=== PATIENT | female | born 1975 | race Caucasian/White ===

== ENCOUNTER → 2017-05-15 | Day surgery (SDC) | payer OTHER ==
[~2017-05-15] MED LIST: CLON0.5T3 PO; ESTR1PAT10 TP; FLUO10CA13 PO; HYDROmorphone 2 MG/ML VIAL IV PRN; IV RINGERS,LACTATED 1000ML 1,000 ML IV SCH; LEVO175T2 PO; LIDOCAINE 1% 1 ML SYRINGE. ID PRN; LIDOCAINE 2% PF Vial for OR 5 ML VIAL. ONE; LITH300T3 PO; MORPHINE SULFATE 2 MG/ML DISP.SYRIN. IV PRN; ONDANSETRON PF 4 MG/2 ML VIAL. IV PRN; PROCHLORPERAZINE 10 MG/2 ML VIAL. IV PRN; PROP10TA PO; PROPOFOL 20 ML IV ONE; PROPOFOL 40 ML IV ONE; QUET200T4 PO; fentaNYL PF VIAL 100 MCG/2 ML VIAL IV PRN
[2017-05-15 07:55] VITALS: BP 111/70
--- NOTE | 2017-05-16 11:32 | PATHOLOGY ---
PATHOLOGY REPORT * * * * * * * * FINAL DIAGNOSIS: Colonic mucosa, random colon biopsies: - No significant pathologic abnormalities. (JPM:florentin; 05/16/2017) COMMENT: Sections of the random colon biopsy reveal multiple segments of colonic mucosa. There is no evidence of a chronic destructive colitis, lymphocytic colitis, or collagenous colitis. (JPM:florentin; 05/16/2017) REPORT ELECTRONICALLY SIGNED BY: Julian Medina M.D. DATE/TIME: 05/16/2017 11:31 * * * * * * * * GROSS PATHOLOGY: Received in formalin labeled "Alyce Hewitt, random colon biopsies," are multiple segments of torres soft tissue measuring from 0.1 up to 0.5 cm in maximum dimension. The specimen is submitted entirely in cassette A1. (JPM; 05/15/17) INITIAL CPT CODE(S): A; 12000 Professional services [place] [facility] [place] [address] Technical services performed by [facility] at [address] [place] [address]. SPECIMEN(S) RECEIVED: A.Random colon biopsy CLINICAL HISTORY: Diarrhea, RUQ pain PATIENT: ALYCE HEWITT /AGE: 5 1975 (Age: 42) PATIENT #: [id number] ALT CASE #: SPECIMEN COLLECTION DATE: 05/15/2017 SPECIMEN RECEIVED DATE: 05/15/2017 [facility] - [address] [place] [address] - PHONE: [phone] * * * END OF REPORT * * *
== END | disposition home or self-care (01) ==
LOC: ENDOS 05:46
PROVIDERS: ATTEND Internal Medicine Gastroenterology
DX: K29.50 Unspecified chronic gastritis without bleeding (principal); E78.00 Pure hypercholesterolemia, unspecified; I10 Essential (primary) hypertension; Z87.01 Personal history of pneumonia (recurrent); E66.9 Obesity, unspecified; K21.9 Gastro-esophageal reflux disease without esophagitis; M19.90 Unspecified osteoarthritis, unspecified site; E03.9 Hypothyroidism, unspecified; F41.9 Anxiety disorder, unspecified; F32.9 Major depressive disorder, single episode, unspecified; F17.200 Nicotine dependence, unspecified, uncomplicated; D64.9 Anemia, unspecified; Z87.39 Personal history of other diseases of the musculoskeletal system and connective tissue; Z68.41 Body mass index [BMI] 40.0-44.9, adult; Z86.69 Personal history of other diseases of the nervous system and sense organs
CPT/HCPCS: 43235; 88305; J2001; J2704

== ENCOUNTER 2019-01-20 22:57 | Inpatient (IN) | payer SELFPAY ==
[~2019-01-20] VITALS: Ht 172.7 cm; Wt 117.3 kg
[~2019-01-20 22:57] MED LIST changes: +CLON0.5T11 PO; -CLON0.5T3 PO; -HYDROmorphone 2 MG/ML VIAL IV PRN; -IV RINGERS,LACTATED 1000ML 1,000 ML IV SCH; -LIDOCAINE 1% 1 ML SYRINGE. ID PRN; -LIDOCAINE 2% PF Vial for OR 5 ML VIAL. ONE; -MORPHINE SULFATE 2 MG/ML DISP.SYRIN. IV PRN; -ONDANSETRON PF 4 MG/2 ML VIAL. IV PRN; -PROCHLORPERAZINE 10 MG/2 ML VIAL. IV PRN; -PROPOFOL 20 ML IV ONE; -PROPOFOL 40 ML IV ONE; -fentaNYL PF VIAL 100 MCG/2 ML VIAL IV PRN
[2019-01-21] VITALS (17 sets, daily range): BP systolic 85–158; BP diastolic 55–97
[2019-01-21] MEDS ORDERED: ONDANSETRON PF 4 MG/2 ML VIAL. IV PRN ×4 (00:45→17:45)
--- NOTE | 2019-01-21 01:07 | NUR ---
The patient, BESS HEWITT, 43 y/o, F admitted by DERRICK GONZALEZ MD, was given written information regarding hospital policies, unit procedures and contact persons. Valuables were checked and left in patients room with patient.
--- NOTE | 2019-01-21 01:08 | NUR ---
PATIENT ADMITTED, PATIENT ASKED ABOUT HOME MEDICATIONS TAKING DAILY. PATIENT DOES NOT KNOW DAILY MEDICATIONS, PATIENT STATES SHE WILL GET A LIST FROM THE PHARMACY LATER TODAY WHEN THEY OPEN. WILL CONTINUE TO MONITOR THE PATIENT.
[2019-01-21] MEDS: IV NORMAL SALINE 1000ML BAG 1,000 ML IV SCH ×2 (01:23→10:45)
--- NOTE | 2019-01-21 04:43 | PDOC2 ---
CONSULT Date of Consult Date of Consult DATE: 01/21/19 TIME: 04:37 Reason for Consult Reason for Consult: acute appendicitis Referring Physician Referring Physician: AUBREY Identification/Chief Complaint Chief Complaint RLQ pain Source Source: Chart review, Patient History of Present Illness Reason for Visit: Alyce is a 43 yo obese female with a three day hx of RLQ pain. Denies any similar episodes of this severity or duration Past Medical History Cardiovascular: HTN Pulmonary: No pertinent hx GI: Irritable bowel disease Psych: Anxiety, Bipolar, Depression, Schizophrenia Past Surgical History Past Surgical History: Hysterectomy Family History Family History: Family History Unknown Social History 1 pack per day ALCOHOL: rare Drugs: Marijuana Current Medications Current Medications Current Medications Sodium Chloride 1,000 ml @ 100 mls/hr Q10H IV Last administered on 01/21/19at 01:23; Start 01/21/19 at 00:45 Fentanyl Citrate (Fentanyl 2ml Vial) 50 mcg PRN Q2HR PRN IV PAIN; Start at 00:45 Ondansetron HCl (Zofran) 4 mg PRN Q6HRS PRN IV NAUSEA/VOMITING; Start 01/21/19 at 00:45 Cefazolin Sodium 3 gm/Dextrose 100 ml @ 200 mls/hr 1X PREOP PRN IV protocol; Start 01/21/19 at 06:00; Stop 01/22/19 at 15:00 Metronidazole 100 ml @ 100 mls/hr 1X PREOP PRN IV protocol; Start 01/21/19 at 06:00; Stop 01/22/19 at 18:00 Active Scripts Active Reported Synthroid (Levothyroxine Sodium) 175 Mcg Tablet 1 Tab PO DAILY Vivelle-Dot (Estradiol) 1 Each Patch.tdsw 1 Patch TP TWICE WEEKLY Clonazepam 0.5 Mg Tablet 1 Tab PO DAILY Propranolol Hcl 10 Mg Tablet 1 Tab PO BID Prozac (Fluoxetine Hcl) 10 Mg Capsule 10 Mg PO DAILY [place] Carbonate 300 Mg Tablet 300 Mg PO HS Seroquel (Quetiapine Fumarate) 200 Mg Tablet 3 Tab PO QHS Allergies Allergies: Coded Allergies: No Known Medication Allergies (Verified Allergy, Unknown, 01/21/19) ROS Gastrointestinal: Yes Abdominal Pain, Yes Constipation Physical Exam General: Alert, No acute distress HEENT: Atraumatic Lungs: Normal air movement Heart: Regular rate Abdomen: Soft, Other (TTP RLQ ) Skin: Other (warm, dry) Psych/Mental Status: Mental status NL Vitals VITALS Vital Signs Date Time Temp Pulse Resp B/P (MAP) Pulse Ox O2 Delivery O2 Flow Rate FiO2 01/21/19 00:52 Room Air Images Images CT done at [facility] is reviewed Assessment/Plan Assessment/Plan acute appendicitis obesity bipolar disorder l/s appendectomy today Thanks for consult SONALI KILGORE MD Jan 21, 2019 04:43
[2019-01-21] MEDS ORDERED: HYDROmorphone 2 MG/ML VIAL IV PRN ×3 (05:15→17:45)
[2019-01-21] MEDS ORDERED: IV RINGERS,LACTATED 1000ML 1,000 ML IV SCH ×2 (05:15→17:37)
[2019-01-21] MEDS ORDERED: MORPHINE SULFATE 2 MG/ML VIAL. IV PRN ×2 (05:15→17:45)
[2019-01-21] MEDS ORDERED: PROCHLORPERAZINE 10 MG/2 ML VIAL. IV PRN ×2 (05:15→17:45)
[2019-01-21] MEDS ORDERED: fentaNYL PF VIAL 100 MCG/2 ML VIAL IV PRN ×4 (05:15→17:45)
[2019-01-21] MEDS ORDERED: LIDOCAINE 1% PF 2 ML VIAL. ID PRN (05:15)
[2019-01-21] MEDS ORDERED: fentaNYL PF VIAL 100 MCG/2 ML VIAL ONE ×3 (05:26→17:41)
[2019-01-21] MEDS ORDERED: ROCURONIUM 50 MG/5 ML VIAL. ONE ×2 (05:26→17:41)
[2019-01-21] MEDS ORDERED: ONDANSETRON PF 4 MG/2 ML VIAL. ONE ×2 (05:27→17:41)
[2019-01-21] MEDS ORDERED: LIDOCAINE 2% PF 5 ML VIAL. ONE ×2 (05:27→17:41)
[2019-01-21] MEDS ORDERED: PROPOFOL 20 ML IV ONE ×2 (05:27→17:41)
[2019-01-21] MEDS ORDERED: DEXAMETHASONE SOD PHOS 20 MG/5 ML VIAL. ONE ×2 (05:27→17:41)
[2019-01-21] MEDS ORDERED: DESFLURANE 61 TO 120 MINUTES IH ONE ×2 (05:28→07:52)
[2019-01-21] MEDS ORDERED: BUPIVAC MPF-EPI 0.5%-1:200000 30 ML VIAL. ONE ×2 (05:30→16:44)
[2019-01-21] MEDS ORDERED: ceFAZolin SODIUM 3 GM in IV DEXTROSE 5% 100ML 100 ML IV PRN (06:00)
[2019-01-21] MEDS ORDERED: diphenhydrAMINE 50 MG/ML VIAL ONE (07:18)
[2019-01-21] MEDS ORDERED: KETOROLAC 30 MG/ML INJ FOR OR. INJ ONE (07:18)
[2019-01-21] MEDS ORDERED: GLYCOPYRROLATE 1 MG/5 ML VIAL. ONE ×2 (07:32→20:29)
[2019-01-21] MEDS ORDERED: NEOSTIGMINE METHYLSULFATE 5 MG/5 ML SYRINGE. ONE ×2 (07:32→20:31)
[2019-01-21] MEDS: fentaNYL PF VIAL 100 MCG/2 ML VIAL IV PRN ×3 (08:42→13:56)
--- NOTE | 2019-01-21 08:56 | PDOC ---
BRIEF OPERATIVE NOTE Date: Jan 21, 2019 Pre-Op Diagnosis acute appendicitis Post-Op Diagnosis same Procedure Performed l/s appendectomy Surgeon Leo Operating Manager Janelle LUCAS Anesthesia Type: General Blood Loss 25cc IV Fluid 1100cc Urine Output 50cc Specimens Obtained appendix Findings acute appendicitis Complications none Operative Note Wk # [id number] SONALI KILGORE MD Jan 21, 2019 08:56
[2019-01-21] MEDS ORDERED: clonazePAM 0.5 MG TABLET PO SCH ×2 (09:00→11:30)
[2019-01-21] MEDS ORDERED: FLUoxetine HCL 10 MG CAPSULE PO SCH ×2 (09:00→11:30)
[2019-01-21] MEDS ORDERED: PROPRANOLOL 10 MG TABLET. PO SCH (09:00)
[2019-01-21] MEDS ORDERED: ENOXAPARIN 40 MG/0.4 ML SYRINGE. SQ SCH (09:00)
[2019-01-21] MEDS ORDERED: diphenhydrAMINE HCL 25 MG CAPSULE PO PRN (09:00)
[2019-01-21] MEDS ORDERED: DEXTROSE 50% 25 GM / 50ML DISP.SYRIN. IV PRN (09:00)
[2019-01-21] MEDS ORDERED: oxyCODONE/APAP 5/325 1 TAB TABLET PO PRN (09:00)
[2019-01-21] MEDS ORDERED: ESTRADIOL TP SCH (09:00)
[2019-01-21] MEDS ORDERED: 0.9 % SODIUM CHLORIDE 10 ML DISP.SYRIN. IV PRN (09:00)
[2019-01-21] MEDS: LEVOTHYROXINE 175 MCG TABLET PO SCH (09:30)
[2019-01-21] MEDS: POTASSIUM CL 20MEQ-0.45% NACL 1,000 ML IV SCH ×2 (09:31→22:25)
--- NOTE | 2019-01-21 09:31 | OP ---
DATE OF SURGERY: 01/21/2019 PREOPERATIVE DIAGNOSIS: Acute appendicitis. POSTOPERATIVE DIAGNOSIS: Acute appendicitis. PROCEDURE: Laparoscopic appendectomy. SURGEON: Brady Kilgore MD ANESTHESIA: General endotracheal. REFINERY TECHNICIAN: SHAYY Hatch. BLOOD LOSS: 25 mL. IV: 1100 mL. URINE OUTPUT: 50 mL. DESCRIPTION OF PROCEDURE: The patient brought to the operating suite, given a general endotracheal anesthetic. Saeed catheter placed to dependent drainage and the abdomen prepped and draped in usual sterile fashion. A supraumbilical incision was made and a 5 mm Visiport used to safely gain access into the abdominal cavity, taking care to avoid injury to abdominal contents. Pneumoperitoneum established. Camera inserted and under direct vision, the suprapubic and left lower quadrant ports were placed. The supraumbilical port was converted to 12 mm for instrumentation. Table rolled to the left. The inflamed appendix was gently freed from the lateral abdominal wall with blunt dissection and LigaSure, being careful to avoid injury to the adjacent bowel. This allowed identification of the viable base of the appendix. A rent created between the base of the mesoappendix and the Endo-JULISA stapler was used to amputate the base of the appendix. Endo-JULISA vascular load used to control the mesoappendix and the appendix placed in an EndoCatch bag. Intra-abdominal pressure decreased to 6 cm of water. No bleeding from the appendiceal stump or mesoappendix was seen. Table returned to level. Appendix delivered through the supraumbilical port site. This site closed with interrupted 0 Vicryl suture. At 8 cm pressure intraabdominally, no bleeding from the closure nor from the left lower quadrant port site after its removal. Abdomen decompressed, camera slowly removed, no bleeding seen. Skin incisions closed with subcuticular 4-0 Monocryl. Sterile dressings applied. Saeed catheter removed. The patient awakened from her anesthetic and taken to the recovery room in satisfactory condition. BRADY KILGORE MD DR: KYRIE/sharon JOB#: [id number] / [id number]
[2019-01-21] MEDS ORDERED: LAMO150T3 PO (10:11)
[2019-01-21] MEDS ORDERED: CARI6CAP PO (10:11)
[2019-01-21] MEDS ORDERED: TOPI100T8 PO (10:11)
[2019-01-21] MEDS ORDERED: ESTR0.5T PO (10:11)
[2019-01-21] MEDS: DOCUSATE SODIUM 100 MG CAPSULE. PO SCH ×2 (10:19→21:00)
[2019-01-21] MEDS: oxyCODONE/APAP 5/325 1 TAB TABLET PO PRN (10:20)
--- NOTE | 2019-01-21 10:35 | PDOC1 ---
History and Physical Date of Admission Date of Admission DATE: 01/21/19 TIME: 10:32 Identification/Chief Complaint Chief Complaint abd pain Source Source: Caregiver, Chart review, Patient History of Present Illness History of Present Illness Alyce is a 43 yo obese female with a three day hx of RLQ pain. Denies any similar episodes of this severity or duration. Appendicitis on imaging underwent lap appendectomy today. No indwelling drain. Some postop soreness. Otherwise she is doing okay and feels fine Past Medical History Cardiovascular: HTN Pulmonary: No pertinent hx GI: Irritable bowel disease Psych: Anxiety, Bipolar, Depression, Schizophrenia Endocrine: Hypothyroidism Past Surgical History Past Surgical History: Appendectomy, Hysterectomy Family History Family History: Family History Unknown Social History Smoke: No ALCOHOL: rare Drugs: Marijuana Current Medications Current Medications Current Medications Sodium Chloride 1,000 ml @ 100 mls/hr Q10H IV Last administered on 01/21/19at 01:23; Start 01/21/19 at 00:45 Fentanyl Citrate (Fentanyl 2ml Vial) 50 mcg PRN Q2HR PRN IV PAIN Last administered on 01/21/19at 08:54; Start 01/21/19 at 00:45 Ondansetron HCl (Zofran) 4 mg PRN Q6HRS PRN IV NAUSEA/VOMITING; Start 01/21/19 at 00:45; Stop 01/21/19 at 08:54; Status DC Cefazolin Sodium 3 gm/Dextrose 100 ml @ 200 mls/hr 1X PREOP PRN IV protocol; Start 01/21/19 at 06:00; Stop 01/22/19 at 15:00 Metronidazole 100 ml @ 100 mls/hr 1X PREOP PRN IV protocol Last administered on 01/21/19at 06:25; Start 01/21/19 at 06:00; Stop 01/22/19 at 18:00 Ondansetron HCl (Zofran) 4 mg PRN Q6HRS PRN IV NAUSEA/VOMITING; Start 01/21/19 at 05:15; Stop 01/22/19 at 05:14 Fentanyl Citrate (Fentanyl 2ml Vial) 25 mcg PRN Q5MIN PRN IV MILD PAIN; Start 01/21/19 at 05:15; Stop 01/22/19 at 05:14 Fentanyl Citrate (Fentanyl 2ml Vial) 50 mcg PRN Q5MIN PRN IV MODERATE TO SEVERE PAIN; Start 01/21/19 at 05:15; Stop 01/22/19 at 05:14 Morphine Sulfate (Morphine Sulfate) 1 mg PRN Q10MIN PRN IV SEVERE PAIN; Start 01/21/19 at 05:15; Stop 01/22/19 at 05:14 Ringer's Solution 1,000 ml @ 30 mls/hr Q24H IV ; Start 01/21/19 at 05:15; Stop 01/21/19 at 09:41; Status DC Lidocaine HCl (Xylocaine-Mpf 1% 2ml Vial) 2 ml PRN 1X PRN ID PRIOR TO IV START ; Start 01/21/19 at 05:15; Stop 01/22/19 at 05:14 Hydromorphone HCl (Dilaudid) 0.5 mg PRN Q10MIN PRN IV SEV PAIN, Second choice; Start 01/21/19 at 05:15; Stop 01/22/19 at 05:14 Prochlorperazine Edisylate (Compazine) 5 mg PACU PRN PRN IV NAUSEA, MRX1; Start 01/21/19 at 05:15; Stop 01/22/19 at 05:14 Fentanyl Citrate (Fentanyl 2ml Vial) 100 mcg STK-MED ONCE .ROUTE ; Start at 05:26; Stop 01/21/19 at 05:27; Status DC Rocuronium [place] (Zemuron) 50 mg STK-MED ONCE .ROUTE ; Start 01/21/19 at 05:26 ; Stop 01/21/19 at 05:27; Status DC Propofol 20 ml @ As Directed STK-MED ONCE IV ; Start 01/21/19 at 05:27; Stop 08/01 at 05:28; Status DC Lidocaine HCl (Lidocaine Pf 2% Vial) 5 ml STK-MED ONCE .ROUTE ; Start 01/21/19 at 05:27; Stop 01/21/19 at 05:28; Status DC Dexamethasone Sodium Phosphate (Decadron) 20 mg STK-MED ONCE .ROUTE ; Start 08/01 at 05:27; Stop 01/21/19 at 05:28; Status DC Ondansetron HCl (Zofran) 4 mg STK-MED ONCE .ROUTE ; Start 01/21/19 at 05:27; Stop 01/21/19 at 05:28; Status DC Desflurane (Suprane) 60 ml STK-MED ONCE IH ; Start 01/21/19 at 05:28; Stop 01/21 at 05:29; Status DC Bupivacaine HCl/ Epinephrine Bitart (Sensorcain-Mpf Epi 0.5%-1:[id number]) 30 ml STK -MED ONCE .ROUTE Last administered on 01/21/19at 07:29; Start 01/21/19 at 05:30 ; Stop 01/21/19 at 06:31; Status DC Diphenhydramine HCl (Benadryl) 50 mg STK-MED ONCE .ROUTE ; Start 01/21/19 at 07: 18; Stop 01/21/19 at 07:19; Status DC Ketorolac Tromethamine (Toradol For Or Only) 30 mg STK-MED ONCE INJ ; Start 08/01 at 07:18; Stop 01/21/19 at 07:19; Status DC Glycopyrrolate (Robinul) 1 mg STK-MED ONCE .ROUTE ; Start 01/21/19 at 07:32; Stop 01/21/19 at 07:33; Status DC Neostigmine Methylsulfate (Neostigmine Methylsulfate) 5 mg STK-MED ONCE .ROUTE ; Start 01/21/19 at 07:32; Stop 01/21/19 at 07:33; Status DC Desflurane (Suprane) 60 ml STK-MED ONCE IH ; Start 01/21/19 at 07:52; Stop 01/21 at 07:53; Status DC Fentanyl Citrate (Fentanyl 2ml Vial) 100 mcg STK-MED ONCE .ROUTE ; Start at 08:38; Stop 01/21/19 at 08:39; Status DC Diphenhydramine HCl (Benadryl) 25 mg PRN Q6HRS PRN PO ITCHING; Start 01/21/19 at 09:00 Enoxaparin Sodium (Lovenox 40mg Syringe) 40 mg Q24H SQ ; Start 01/21/19 at 09:00 ; Stop 01/21/19 at 09:00; Status DC Sodium Chloride (Normal Saline Flush) 3 ml QSHIFT PRN IV AFTER MEDS AND BLOOD DRAWS; Start 01/21/19 at 09:00 Potassium Chloride/Sodium Chloride 1,000 ml @ 100 mls/hr Q10H IV Last administered on 01/21/19at 09:31; Start 01/21/19 at 09:00 Dextrose (Dextrose 50%-Water Syringe) 12.5 gm PRN Q15MIN PRN IV SEE COMMENTS; Start 01/21/19 at 09:00 Oxycodone/ Acetaminophen (Percocet 5/325) 1 tab PRN Q4HRS PRN PO MILD PAIN, 1ST CHOICE; Start 01/21/19 at 09:00 Oxycodone/ Acetaminophen (Percocet 5/325) 2 tab PRN Q4HRS PRN PO MODERATE PAIN , SEVERE PAIN Last administered on 01/21/19at 10:20; Start 01/21/19 at 09:00 Hydromorphone HCl (Dilaudid) 1 mg PRN Q3HRS PRN IV PAIN; Start 01/21/19 at 09: 00 Docusate Sodium (Colace) 100 mg BID PO Last administered on 01/21/19at 10:19; Start 01/21/19 at 09:00 Ondansetron HCl (Zofran) 4 mg PRN Q6HRS PRN IV NAUESA, 1ST CHOICE; Start at 09:00 Clonazepam (KlonoPIN) 0.5 mg DAILY PO ; Start 01/21/19 at 09:00 Fluoxetine HCl (PROzac) 10 mg DAILY PO ; Start 01/21/19 at 09:00 Levothyroxine Sodium (Synthroid) 175 mcg DAILY06 PO Last administered on at 09:30; Start 01/21/19 at 09:00 Non-Formulary Medication (Estradiol (Vivelle-Dot)) 1 patch TWICE WEEKLY TP ; Start 01/21/19 at 09:00; Status [place] Carbonate 300 mg QHS PO ; Start 01/21/19 at 21:00 Propranolol HCl (Inderal) 10 mg BID PO ; Start 01/21/19 at 09:00 Quetiapine Fumarate (SEROquel) 600 mg QHS PO ; Start 01/21/19 at 21:00 Enoxaparin Sodium (Lovenox 40mg Syringe) 40 mg Q24H SQ ; Start 01/21/19 at 21:00 Active Scripts Active Reported Topiramate 100 Mg Tablet 200 Mg PO HS Lamictal (Lamotrigine) 150 Mg Tablet 150 Mg PO HS Vraylar (Cariprazine Hydrochloride) 6 Mg Capsule 6 Mg PO DAILY Estradiol 0.5 Mg Tablet 0.5 Mg PO DAILY Synthroid (Levothyroxine Sodium) 175 Mcg Tablet 1 Tab PO DAILY Prozac (Fluoxetine Hcl) 10 Mg Capsule 20 Mg PO DAILY Allergies Allergies: Coded Allergies: No Known Medication Allergies (Verified Allergy, Unknown, 01/21/19) ROS Review of System Some postop pain otherwise the rest of ROS 14 point negative Physical Exam General: Alert, Oriented X3, Cooperative, No acute distress HEENT: Atraumatic, PERRLA, EOMI Lungs: Clear to auscultation, Normal air movement Heart: S1S2, RRR, no thrills, no rubs, no gallops, no murmurs Cardiovascular: S1 Breasts: Normal, Rt breast nml w/o mass, Lt breast nml w/o mass, Nipples normal Abdomen: Soft, Other (3 laparoscopic dressings, dry, positive bowel sounds, minor tenderness around post op site) Rectal Exam: not examined PELVIC: Nml ext genitalia Extremities: No clubbing Skin: No rashes, No breakdown, No significant lesion Neuro: Normal gait, Normal speech, Strength at 5/5 X4 ext, Normal tone, Sensation intact, Cranial nerves 3-12 NL, Reflexes 2+ Psych/Mental Status: Mental status NL Vitals Vitals Vital Signs Date Time Temp Pulse Resp B/P (MAP) Pulse Ox O2 Delivery O2 Flow Rate FiO2 01/21/19 10:22 96 Nasal Cannula 2.0 01/21/19 09:00 98.6 86 15 114/75 98.6 VTE Prophylaxis Ordered VTE Prophylaxis Devices: Yes VTE Pharmacological Prophylaxi: Yes Assessment/Plan Assessment/Plan status post lap appendectomy-01/21/19 Obesity, BMI 39.7 Depression/anxiety NOS-on meds Plan: postop care, diet Might be able to go home tomorrow Discussed with family at bedside DERRICK GONZALEZ MD Jan 21, 2019 10:35
[2019-01-21 10:37] LABS: BASO % 1 % (0-3); EOS % 0 % (0-3); HEMATOCRIT 35.8 % (36.0-47.0); HEMOGLOBIN 11.9 g/dL (12.0-15.5); LYMPH # 0.9 x10^3/uL (1.0-4.8); LYMPH % 9 % (24-48); MEAN CORPUSCULAR HEMOGLOBIN 31 pg (25-35); MEAN CORPUSCULAR HGB CONC 33 g/dL (31-37); MEAN CORPUSCULAR VOLUME 94 fL (79-100); MONO # 0.1 x10^3/uL (0.0-1.1); MONO % 1 % (0-9); NEUT # 8.5 x10^3uL (1.8-7.7); NEUT % 89 % (31-73); PLATELET COUNT 224 x10^3/uL (140-400); RED BLOOD COUNT 3.82 x10^6/uL (3.50-5.40); RED CELL DISTRIBUTION WIDTH 14.6 % (11.5-14.5); WHITE BLOOD COUNT 9.6 x10^3/uL (4.0-11.0)
[2019-01-21] MEDS ORDERED: CLON0.5T11 PO (10:52)
[2019-01-21 10:53] LABS: PROTHROMBIN TIME PATIENT 13.4 SEC (11.7-14.0)
[2019-01-21] MEDS: ESTRADIOL 1 MG TABLET. PO SCH (10:54)
[2019-01-21 10:56] LABS: CALCIUM 7.6 mg/dL (8.5-10.1); CREATININE 0.9 mg/dL (0.6-1.0); GFR 68.7; POTASSIUM 4.3 mmol/L (3.5-5.1)
[2019-01-21 13:18] LABS: % BANDS 4 % (0-9); % LYMPHS 10 % (24-48); % SEGS 86 % (35-66); PLT ESTIMATE ADEQUATE (ADEQUATE)
--- NOTE | 2019-01-21 13:25 | NUR ---
SW following pt for anticipated dc needs. Chart reviewed. Pt lives at home with family and is self pay. No discharge recommendation noted at this time.
[2019-01-21] MEDS: clonazePAM 0.5 MG TABLET PO SCH (13:56)
--- NOTE | 2019-01-21 16:18 | EKG ---
[facility] [address] [place] [address] Test Date: 2019-01-21 Test Time: 16:09:52 Pat Name: BESS HEWITT Department: Room: 516 1 Gender: F Avionics Electronics Technician: : 1975 Requested By: DERRICK GONZALEZ Order Number: [id number] Reading MD: Eron Ponce MD Measurements Intervals [place] Rate: 148 P: 209 NE: 128 QRS: 30 QRSD: 82 T: 28 QT: 262 QTc: 416 Interpretive Statements SUPRAVENTRICULAR TACHYCARDIA -PROBABLE ATRIAL TACHYCARDIA Electronically Signed On 02-02-2019 10:02:40 CDT by Eron Ponce MD
--- NOTE | 2019-01-21 16:18 | NUR ---
Patient's mom at bedside ran down adams, patient had just been given zofran. I ran down adams and found patient sitting at bedside, pale, clammy; c/o not being able to breath.
[2019-01-21] MEDS ORDERED: BACITRACIN 50,000 UNIT VIAL. IRR ONE (16:44)
--- NOTE | 2019-01-21 16:46 | NUR ---
Responded to rapid in room 516, patient feeling dizziness, HR 148,EKG done showed ST, Labs ordered, patient taken to CVC room 211. Patient states that she thinks it was the pain medication that made her feel this way.Anusha MORALES to notify and Dr. Hernandez. BP and Spo2 stable. Addendum: 01/21/19 at 1650 by ZO CAMPOS RN Amended: Links added.
[2019-01-21 17:00] LABS: BASO % 0 % (0-3); EOS % 0 % (0-3); HEMATOCRIT 29.1 % (36.0-47.0); HEMOGLOBIN 9.6 g/dL (12.0-15.5); LYMPH # 1.5 x10^3/uL (1.0-4.8); LYMPH % 8 % (24-48); MEAN CORPUSCULAR HEMOGLOBIN 31 pg (25-35); MEAN CORPUSCULAR HGB CONC 33 g/dL (31-37); MEAN CORPUSCULAR VOLUME 94 fL (79-100); MONO # 0.5 x10^3/uL (0.0-1.1); MONO % 3 % (0-9); NEUT % 89 % (31-73); PLATELET COUNT 300 x10^3/uL (140-400); RED CELL DISTRIBUTION WIDTH 14.8 % (11.5-14.5)
[2019-01-21 17:08] LABS: CALCIUM 7.8 mg/dL (8.5-10.1); CREATININE 1.6 mg/dL (0.6-1.0); GFR 35.3; POTASSIUM 4.1 mmol/L (3.5-5.1)
--- NOTE | 2019-01-21 17:11 | NUR ---
At approximately 1600 patient's mother ran out of room saying her daughter needed help. I ran down adams to find patient sitting at edge of bed, she was pale and skin warm and clammy. I called for another nurse to call the Rapid response. Got patient back up in the bed, she was c/o having a hard time breathing. After repositioning patient her color came back into her face, still c/ o shortness of breath; however o2 sats mid 90's, blood pressure low 90's to upper 80's systolic, hr in mid 140's. Patient had been given zofran just before mother ran down adams and asked me to come see patient. Patient was c/o midsternal chest pressure at the time, however it had began to subside when Jessica, CARPET BINDER had arrived.
[2019-01-21 17:14] LABS: ALBUMIN 3.5 g/dL (3.4-5.0); TOTAL BILIRUBIN 0.2 mg/dL (0.2-1.0); TOTAL PROTEIN 6.9 g/dL (6.4-8.2)
--- NOTE | 2019-01-21 17:19 | NUR ---
Dr. Hernandez was sent message about patient, and Dr. Bailey was informed and requested a stat HH, which I ordered.
--- NOTE | 2019-01-21 17:26 | PDOC ---
SURGICAL PROGRESS NOTE Subjective Asked by Dr. Bailey to evaluate pt. Pt noted to be clammy and tachycardia, transferred to tele Pt seen in room, notes some RUQ abd pain, RLQ pain, some light headedness with standing up HR-136 abd soft, obese, TTP RUQ, RLQ, dressing c/d/i, no obvious ecchymosis Vital Signs Vital Signs Date Time Temp Pulse Resp B/P (MAP) Pulse Ox O2 Delivery O2 Flow Rate FiO2 01/21/19 16:17 146 16 85/55 (65) 96 Room Air 01/21/19 15:50 2.0 01/21/19 15:00 97.7 97.7 I&O Intake and Output 01/21/19 07:00 # Voids 1 General: Alert, Oriented X3, Cooperative, mild distress Abdomen: Soft Labs Laboratory Tests Test 01/21/19 10:15 01/21/19 16:30 01/21/19 16:55 White Blood Count 9.6 x10^3/uL (4.0-11.0) 18.0 x10^3/uL (4.0-11.0) Red Blood Count 3.82 x10^6/uL (3.50-5.40) 3.10 x10^6/uL (3.50-5.40) Hemoglobin 11.9 g/dL (12.0-15.5) 9.6 g/dL (12.0-15.5) Hematocrit 35.8 % (36.0-47.0) 29.1 % (36.0-47.0) Mean Corpuscular Volume 94 fL (79-100) 94 fL (79-100) Mean Corpuscular Hemoglobin 31 pg (25-35) 31 pg (25-35) Mean Corpuscular Hemoglobin Concent 33 g/dL (31-37) 33 g/dL (31-37) Red Cell Distribution Width 14.6 % (11.5-14.5) 14.8 % (11.5-14.5) Platelet Count 224 x10^3/uL (140-400) 300 x10^3/uL (140-400) Neutrophils (%) (Auto) 89 % (31-73) 89 % (31-73) Lymphocytes (%) (Auto) 9 % (24-48) 8 % (24-48) Monocytes (%) (Auto) 1 % (0-9) 3 % (0-9) Eosinophils (%) (Auto) 0 % (0-3) 0 % (0-3) Basophils (%) (Auto) 1 % (0-3) 0 % (0-3) Neutrophils # (Auto) 8.5 x10^3uL (1.8-7.7) 16.0 x10^3uL (1.8-7.7) Lymphocytes # (Auto) 0.9 x10^3/uL (1.0-4.8) 1.5 x10^3/uL (1.0-4.8) Monocytes # (Auto) 0.1 x10^3/uL (0.0-1.1) 0.5 x10^3/uL (0.0-1.1) Eosinophils # (Auto) 0.0 x10^3/uL (0.0-0.7) 0.0 x10^3/uL (0.0-0.7) Basophils # (Auto) 0.0 x10^3/uL (0.0-0.2) 0.0 x10^3/uL (0.0-0.2) Segmented Neutrophils % 86 % (35-66) Band Neutrophils % 4 % (0-9) Lymphocytes % 10 % (24-48) Platelet Estimate Adequate (ADEQUATE) Prothrombin Time 13.4 SEC (11.7-14.0) Prothromb Time International Ratio 1.1 (0.8-1.1) Sodium Level 137 mmol/L (136-145) 133 mmol/L (136-145) Potassium Level 4.3 mmol/L (3.5-5.1) 4.1 mmol/L (3.5-5.1) Chloride Level 103 mmol/L (98-107) 99 mmol/L (98-107) Carbon Dioxide Level 23 mmol/L (21-32) 15 mmol/L (21-32) Anion Gap 11 (6-14) 19 (6-14) Blood Urea Nitrogen 9 mg/dL (7-20) 14 mg/dL (7-20) Creatinine 0.9 mg/dL (0.6-1.0) 1.6 mg/dL (0.6-1.0) Estimated GFR (Cockcroft-Gault) 68.7 35.3 Glucose Level 169 mg/dL (70-99) 278 mg/dL (70-99) Calcium Level 7.6 mg/dL (8.5-10.1) 7.8 mg/dL (8.5-10.1) BUN/Creatinine Ratio 9 (6-20) Magnesium Level 2.0 mg/dL (1.8-2.4) Total Bilirubin 0.2 mg/dL (0.2-1.0) Aspartate Amino Transf (AST/SGOT) 41 U/L (15-37) Alanine Aminotransferase (ALT/SGPT) 56 U/L (14-59) Alkaline Phosphatase 104 U/L (46-116) Total Protein 6.9 g/dL (6.4-8.2) Albumin 3.5 g/dL (3.4-5.0) Albumin/Globulin Ratio 1.0 (1.0-1.7) Troponin I Quantitative < 0.017 ng/mL (0.000-0.055) Laboratory Tests Test 01/21/19 10:15 01/21/19 16:30 01/21/19 16:55 White Blood Count 9.6 x10^3/uL (4.0-11.0) 18.0 x10^3/uL (4.0-11.0) Red Blood Count 3.82 x10^6/uL (3.50-5.40) 3.10 x10^6/uL (3.50-5.40) Hemoglobin 11.9 g/dL (12.0-15.5) 9.6 g/dL (12.0-15.5) Hematocrit 35.8 % (36.0-47.0) 29.1 % (36.0-47.0) Mean Corpuscular Volume 94 fL (79-100) 94 fL (79-100) Mean Corpuscular Hemoglobin 31 pg (25-35) 31 pg (25-35) Mean Corpuscular Hemoglobin Concent 33 g/dL (31-37) 33 g/dL (31-37) Red Cell Distribution Width 14.6 % (11.5-14.5) 14.8 % (11.5-14.5) Platelet Count 224 x10^3/uL (140-400) 300 x10^3/uL (140-400) Neutrophils (%) (Auto) 89 % (31-73) 89 % (31-73) Lymphocytes (%) (Auto) 9 % (24-48) 8 % (24-48) Monocytes (%) (Auto) 1 % (0-9) 3 % (0-9) Eosinophils (%) (Auto) 0 % (0-3) 0 % (0-3) Basophils (%) (Auto) 1 % (0-3) 0 % (0-3) Neutrophils # (Auto) 8.5 x10^3uL (1.8-7.7) 16.0 x10^3uL (1.8-7.7) Lymphocytes # (Auto) 0.9 x10^3/uL (1.0-4.8) 1.5 x10^3/uL (1.0-4.8) Monocytes # (Auto) 0.1 x10^3/uL (0.0-1.1) 0.5 x10^3/uL (0.0-1.1) Eosinophils # (Auto) 0.0 x10^3/uL (0.0-0.7) 0.0 x10^3/uL (0.0-0.7) Basophils # (Auto) 0.0 x10^3/uL (0.0-0.2) 0.0 x10^3/uL (0.0-0.2) Segmented Neutrophils % 86 % (35-66) Band Neutrophils % 4 % (0-9) Lymphocytes % 10 % (24-48) Platelet Estimate Adequate (ADEQUATE) Prothrombin Time 13.4 SEC (11.7-14.0) Prothromb Time International Ratio 1.1 (0.8-1.1) Sodium Level 137 mmol/L (136-145) 133 mmol/L (136-145) Potassium Level 4.3 mmol/L (3.5-5.1) 4.1 mmol/L (3.5-5.1) Chloride Level 103 mmol/L (98-107) 99 mmol/L (98-107) Carbon Dioxide Level 23 mmol/L (21-32) 15 mmol/L (21-32) Anion Gap 11 (6-14) 19 (6-14) Blood Urea Nitrogen 9 mg/dL (7-20) 14 mg/dL (7-20) Creatinine 0.9 mg/dL (0.6-1.0) 1.6 mg/dL (0.6-1.0) Estimated GFR (Cockcroft-Gault) 68.7 35.3 Glucose Level 169 mg/dL (70-99) 278 mg/dL (70-99) Calcium Level 7.6 mg/dL (8.5-10.1) 7.8 mg/dL (8.5-10.1) BUN/Creatinine Ratio 9 (6-20) Magnesium Level 2.0 mg/dL (1.8-2.4) Total Bilirubin 0.2 mg/dL (0.2-1.0) Aspartate Amino Transf (AST/SGOT) 41 U/L (15-37) Alanine Aminotransferase (ALT/SGPT) 56 U/L (14-59) Alkaline Phosphatase 104 U/L (46-116) Total Protein 6.9 g/dL (6.4-8.2) Albumin 3.5 g/dL (3.4-5.0) Albumin/Globulin Ratio 1.0 (1.0-1.7) Troponin I Quantitative < 0.017 ng/mL (0.000-0.055) Problem List s/p lap appendectomy with tachycardia will give fluid bolus and check CT a/p d/w pt and pt's mother d/w HEIDY Marie MD Jan 21, 2019 17:26
[2019-01-21] MEDS ORDERED: IV RINGERS,LACTATED 500ML 500 ML IV ONE (17:30)
[2019-01-21] MEDS ORDERED: SUCCINYLCHOLINE 200 MG/10 ML VIAL. ONE (17:43)
[2019-01-21] MEDS ORDERED: SURGICEL HEMOSTAT 4X8 EACH. ONE (18:48)
--- NOTE | 2019-01-21 18:50 | RAD ---
INDICATION: severe pain and tachycardia s/p appendectomy today, no priors, non contrast due to low gfr COMPARISON: None. TECHNIQUE: Axial CT images obtained through the abdomen and pelvis without contrast. One or more of the following individualized dose reduction techniques were utilized for this examination: 1. Automated exposure control; 2. Adjustment of the mA and/or kV according to patient size; 3. Use of iterative reconstruction technique. FINDINGS: Motion and lack of contrast limits. There is some mild groundglass opacities at partially visualized lung bases. Abdominal aorta is not aneurysmal. Liver is low density which can be seen with fatty infiltration. There is high density fluid seen adjacent to the liver which may be subcapsular as well as extending more inferiorly into the pelvis with high density fluid seen in the pelvis as well. No peripancreatic fluid collection. There is also high density fluid seen surrounding the spleen to a lesser degree. This high density fluid measures up to about 17 mm in thickness. This also extends into the left paracolic gutter. No hydronephrosis. Apparent subcutaneous soft tissues postoperatively. Urinary bladder has small amount of urine within it at time of exam. Degenerative changes of spine with multilevel central canal and neural foraminal stenosis. Pars defects at L5. Ejection changes throughout the spine. IMPRESSION: 1. High density fluid is seen surrounding the liver and extending into the right paracolic gutter and extending into the pelvis as well concerning for hemorrhage. There is also high density fluid surrounding the spleen and extending into the left paracolic gutter which can be seen with an additional site of hemorrhage. Report was called to the patient's nurse on the floor at 6:45 PM on date of exam. Electronically signed by: Juan R Cantu MD (01/21/2019 6:48 PM) [facility]
--- NOTE | 2019-01-21 18:50 | PDOC ---
SURGICAL PROGRESS NOTE Subjective concerned that pain meds made her dizzy and clammy Vital Signs Vital Signs Date Time Temp Pulse Resp B/P (MAP) Pulse Ox O2 Delivery O2 Flow Rate FiO2 01/21/19 16:17 146 16 85/55 (65) 96 Room Air 01/21/19 15:50 2.0 01/21/19 15:00 97.7 97.7 HR 130s to 140 BP 109/78 I&O Intake and Output 01/21/19 07:00 # Voids 1 PATIENT HAS A DOAN: No General: Alert, Oriented X3, No acute distress HEENT: Other (pale) Heart: Other (increased rate) Abdomen: Soft, Other (mildly TTP right side) Labs Laboratory Tests Test 01/21/19 10:15 01/21/19 16:30 01/21/19 16:55 White Blood Count 9.6 x10^3/uL (4.0-11.0) 18.0 x10^3/uL (4.0-11.0) Red Blood Count 3.82 x10^6/uL (3.50-5.40) 3.10 x10^6/uL (3.50-5.40) Hemoglobin 11.9 g/dL (12.0-15.5) 9.6 g/dL (12.0-15.5) Hematocrit 35.8 % (36.0-47.0) 29.1 % (36.0-47.0) Mean Corpuscular Volume 94 fL (79-100) 94 fL (79-100) Mean Corpuscular Hemoglobin 31 pg (25-35) 31 pg (25-35) Mean Corpuscular Hemoglobin Concent 33 g/dL (31-37) 33 g/dL (31-37) Red Cell Distribution Width 14.6 % (11.5-14.5) 14.8 % (11.5-14.5) Platelet Count 224 x10^3/uL (140-400) 300 x10^3/uL (140-400) Neutrophils (%) (Auto) 89 % (31-73) 89 % (31-73) Lymphocytes (%) (Auto) 9 % (24-48) 8 % (24-48) Monocytes (%) (Auto) 1 % (0-9) 3 % (0-9) Eosinophils (%) (Auto) 0 % (0-3) 0 % (0-3) Basophils (%) (Auto) 1 % (0-3) 0 % (0-3) Neutrophils # (Auto) 8.5 x10^3uL (1.8-7.7) 16.0 x10^3uL (1.8-7.7) Lymphocytes # (Auto) 0.9 x10^3/uL (1.0-4.8) 1.5 x10^3/uL (1.0-4.8) Monocytes # (Auto) 0.1 x10^3/uL (0.0-1.1) 0.5 x10^3/uL (0.0-1.1) Eosinophils # (Auto) 0.0 x10^3/uL (0.0-0.7) 0.0 x10^3/uL (0.0-0.7) Basophils # (Auto) 0.0 x10^3/uL (0.0-0.2) 0.0 x10^3/uL (0.0-0.2) Segmented Neutrophils % 86 % (35-66) Band Neutrophils % 4 % (0-9) Lymphocytes % 10 % (24-48) Platelet Estimate Adequate (ADEQUATE) Prothrombin Time 13.4 SEC (11.7-14.0) Prothromb Time International Ratio 1.1 (0.8-1.1) Sodium Level 137 mmol/L (136-145) 133 mmol/L (136-145) Potassium Level 4.3 mmol/L (3.5-5.1) 4.1 mmol/L (3.5-5.1) Chloride Level 103 mmol/L (98-107) 99 mmol/L (98-107) Carbon Dioxide Level 23 mmol/L (21-32) 15 mmol/L (21-32) Anion Gap 11 (6-14) 19 (6-14) Blood Urea Nitrogen 9 mg/dL (7-20) 14 mg/dL (7-20) Creatinine 0.9 mg/dL (0.6-1.0) 1.6 mg/dL (0.6-1.0) Estimated GFR (Cockcroft-Gault) 68.7 35.3 Glucose Level 169 mg/dL (70-99) 278 mg/dL (70-99) Calcium Level 7.6 mg/dL (8.5-10.1) 7.8 mg/dL (8.5-10.1) BUN/Creatinine Ratio 9 (6-20) Magnesium Level 2.0 mg/dL (1.8-2.4) Total Bilirubin 0.2 mg/dL (0.2-1.0) Aspartate Amino Transf (AST/SGOT) 41 U/L (15-37) Alanine Aminotransferase (ALT/SGPT) 56 U/L (14-59) Alkaline Phosphatase 104 U/L (46-116) Total Protein 6.9 g/dL (6.4-8.2) Albumin 3.5 g/dL (3.4-5.0) Albumin/Globulin Ratio 1.0 (1.0-1.7) Troponin I Quantitative < 0.017 ng/mL (0.000-0.055) Laboratory Tests Test 01/21/19 10:15 01/21/19 16:30 01/21/19 16:55 White Blood Count 9.6 x10^3/uL (4.0-11.0) 18.0 x10^3/uL (4.0-11.0) Red Blood Count 3.82 x10^6/uL (3.50-5.40) 3.10 x10^6/uL (3.50-5.40) Hemoglobin 11.9 g/dL (12.0-15.5) 9.6 g/dL (12.0-15.5) Hematocrit 35.8 % (36.0-47.0) 29.1 % (36.0-47.0) Mean Corpuscular Volume 94 fL (79-100) 94 fL (79-100) Mean Corpuscular Hemoglobin 31 pg (25-35) 31 pg (25-35) Mean Corpuscular Hemoglobin Concent 33 g/dL (31-37) 33 g/dL (31-37) Red Cell Distribution Width 14.6 % (11.5-14.5) 14.8 % (11.5-14.5) Platelet Count 224 x10^3/uL (140-400) 300 x10^3/uL (140-400) Neutrophils (%) (Auto) 89 % (31-73) 89 % (31-73) Lymphocytes (%) (Auto) 9 % (24-48) 8 % (24-48) Monocytes (%) (Auto) 1 % (0-9) 3 % (0-9) Eosinophils (%) (Auto) 0 % (0-3) 0 % (0-3) Basophils (%) (Auto) 1 % (0-3) 0 % (0-3) Neutrophils # (Auto) 8.5 x10^3uL (1.8-7.7) 16.0 x10^3uL (1.8-7.7) Lymphocytes # (Auto) 0.9 x10^3/uL (1.0-4.8) 1.5 x10^3/uL (1.0-4.8) Monocytes # (Auto) 0.1 x10^3/uL (0.0-1.1) 0.5 x10^3/uL (0.0-1.1) Eosinophils # (Auto) 0.0 x10^3/uL (0.0-0.7) 0.0 x10^3/uL (0.0-0.7) Basophils # (Auto) 0.0 x10^3/uL (0.0-0.2) 0.0 x10^3/uL (0.0-0.2) Segmented Neutrophils % 86 % (35-66) Band Neutrophils % 4 % (0-9) Lymphocytes % 10 % (24-48) Platelet Estimate Adequate (ADEQUATE) Prothrombin Time 13.4 SEC (11.7-14.0) Prothromb Time International Ratio 1.1 (0.8-1.1) Sodium Level 137 mmol/L (136-145) 133 mmol/L (136-145) Potassium Level 4.3 mmol/L (3.5-5.1) 4.1 mmol/L (3.5-5.1) Chloride Level 103 mmol/L (98-107) 99 mmol/L (98-107) Carbon Dioxide Level 23 mmol/L (21-32) 15 mmol/L (21-32) Anion Gap 11 (6-14) 19 (6-14) Blood Urea Nitrogen 9 mg/dL (7-20) 14 mg/dL (7-20) Creatinine 0.9 mg/dL (0.6-1.0) 1.6 mg/dL (0.6-1.0) Estimated GFR (Cockcroft-Gault) 68.7 35.3 Glucose Level 169 mg/dL (70-99) 278 mg/dL (70-99) Calcium Level 7.6 mg/dL (8.5-10.1) 7.8 mg/dL (8.5-10.1) BUN/Creatinine Ratio 9 (6-20) Magnesium Level 2.0 mg/dL (1.8-2.4) Total Bilirubin 0.2 mg/dL (0.2-1.0) Aspartate Amino Transf (AST/SGOT) 41 U/L (15-37) Alanine Aminotransferase (ALT/SGPT) 56 U/L (14-59) Alkaline Phosphatase 104 U/L (46-116) Total Protein 6.9 g/dL (6.4-8.2) Albumin 3.5 g/dL (3.4-5.0) Albumin/Globulin Ratio 1.0 (1.0-1.7) Troponin I Quantitative < 0.017 ng/mL (0.000-0.055) Hb 9.8 I have reviewed the following CT abdomen/pelvis reviewed Assessment/Plan post op bleeding discussed options of continued close observation vs l/s vs open exploration she is agreeable to the latter explained risks of continued bleeding, uncertain source she will proceed SONALI KILGORE MD Jan 21, 2019 18:50
[2019-01-21] MEDS ORDERED: SCOPOLAMINE 1.5MG PATCH. TD ONE (18:57)
[2019-01-21] MEDS ORDERED: KETAMINE HCL IN NACL, ISO-OSM 50 MG/5 ML SYRINGE ONE (19:01)
[2019-01-21 19:20] LABS: % BANDS 5 % (0-9); % LYMPHS 9 % (24-48); % MONOS 1 % (0-10); % SEGS 85 % (35-66)
[2019-01-21 19:21] LABS: PLT ESTIMATE ADEQUATE (ADEQUATE)
[2019-01-21] MEDS ORDERED: ALBUMIN HUMAN 5% 500 ML IV ONE ×2 (19:49→19:50)
[2019-01-21] MEDS ORDERED: PHENYLEPHRINE in 0.9% NACL PF 1 MG/10 ML SYRINGE. IV ONE (19:50)
[2019-01-21 20:09] LABS: CORRECTED PCO2 39 mmHg; CORRECTED PH 7.22; CORRECTED PO2 46 mmHg; FIO2 ISTAT 100; VEN BASE EXCESS ISTAT -12 mmol/L (0-3); VEN GLUC ISTAT 140 mg/dL (70-99); VEN HCO3 ISTAT 16 mmol/L (24-28); VEN HCT ISTAT 19 % (36-40); VEN HGB ISTAT 6.5 g/dL (12-15); VEN ION CA ISTAT 1.08 mmol/L (1.13-1.32); VEN K ISTAT 3.8 mmol/L (3.5-5.0); VEN NA ISTAT 136 mmol/L (135-145); VEN O2 ISTAT 53 mmHg (20-40); VEN PCO2 ISTAT 43 mmHg (41-51); VEN SO2 ISTAT 79 %; VEN TCO2 ISTAT 18 mmol/L (21-32)
[2019-01-21] MEDS ORDERED: SURGICEL HEMOSTAT 4X8 EACH. TP ONE (20:19)
[2019-01-21 20:25] LABS: BASO % 0 % (0-3); EOS % 0 % (0-3); LYMPH # 1.1 x10^3/uL (1.0-4.8); LYMPH % 10 % (24-48); MEAN CORPUSCULAR HEMOGLOBIN 31 pg (25-35); MEAN CORPUSCULAR HGB CONC 33 g/dL (31-37); MEAN CORPUSCULAR VOLUME 94 fL (79-100); MONO # 0.8 x10^3/uL (0.0-1.1); MONO % 7 % (0-9); NEUT # 9.2 x10^3uL (1.8-7.7); NEUT % 83 % (31-73); PLATELET COUNT 193 x10^3/uL (140-400); RED BLOOD COUNT 2.09 x10^6/uL (3.50-5.40)
[2019-01-21 20:26] LABS: HEMOGLOBIN 6.5 g/dL (12.0-15.5)
[2019-01-21 20:27] LABS: HEMATOCRIT 19.5 % (36.0-47.0)
[2019-01-21] MEDS ORDERED: SEVOFLURANE 61 TO 120 MINUTES. IH ONE (20:48)
[2019-01-21 20:50] LABS: % BANDS 10 % (0-9); % LYMPHS 12 % (24-48); % MONOS 5 % (0-10); % SEGS 73 % (35-66); PLT ESTIMATE ADEQUATE (ADEQUATE)
[2019-01-21] MEDS ORDERED: QUEtiapine 100 MG TABLET. PO SCH (21:00)
[2019-01-21] MEDS ORDERED: LITHIUM CARBONATE 300 MG CAPSULE PO SCH (21:00)
[2019-01-21] MEDS: lamoTRIgine 100 MG TABLET. PO SCH (21:00)
[2019-01-21] MEDS: ENOXAPARIN 40 MG/0.4 ML SYRINGE. SQ SCH (21:00)
[2019-01-21] MEDS: TOPIRAMATE 100 MG TABLET. PO SCH (21:00)
--- NOTE | 2019-01-21 21:06 | PDOC ---
BRIEF OPERATIVE NOTE Date: Jan 21, 2019 Pre-Op Diagnosis hemoperitoneum Post-Op Diagnosis same Procedure Performed l/s exploration, control bleeding Surgeon Leo Boat Person Dr [place] Anesthesia Type: General Blood Loss appr 100cc acute loss appr 2500cc old blood IV Fluid 1000cc albumin 1000cc LR one unit PRBCs Urine Output 150cc Specimens Obtained none Findings large amount of old blood, some oozing from mesoappendix and lateral abdominal wall Complications none Operative Note Wk #[id number] SONALI KILGORE MD Jan 21, 2019 21:06
--- NOTE | 2019-01-21 21:19 | PDOC ---
Date and Time Patient for emergency laparoscopy for probable postop intrabdominal hemorrhage, Arrived with an AC IV that was barely functional. Unable to obtain additional peripheral access. Known history of multiple central line needed for IV access. D/w patient the need for volume resuscitation and likely need for blood. She agreed to central line. In OR sterile technique with mask,gloves,gown,large sterile drape. Chlorasept prep. RIJ identified 1st attempt, wire, 3 lumen placed without problem. Sutured at 17cm, biopatch,sterile dressing. No apparent complication. CXR for placement ordered tip at SVC RA junction Current Medications Current Medications Sodium Chloride 1,000 ml @ 100 mls/hr Q10H IV Last administered on 01/21/19at 01:23; Start 01/21/19 at 00:45 Fentanyl Citrate (Fentanyl 2ml Vial) 50 mcg PRN Q2HR PRN IV PAIN Last administered on 01/21/19at 13:56; Start 01/21/19 at 00:45 Ondansetron HCl (Zofran) 4 mg PRN Q6HRS PRN IV NAUSEA/VOMITING; Start 01/21/19 at 00:45; Stop 01/21/19 at 08:54; Status DC Cefazolin Sodium 3 gm/Dextrose 100 ml @ 200 mls/hr 1X PREOP PRN IV protocol; Start 01/21/19 at 06:00; Stop 01/22/19 at 15:00 Metronidazole 100 ml @ 100 mls/hr 1X PREOP PRN IV protocol Last administered on 01/21/19at 19:18; Start 01/21/19 at 06:00; Stop 01/22/19 at 18:00 Ondansetron HCl (Zofran) 4 mg PRN Q6HRS PRN IV NAUSEA/VOMITING Last administered on 01/21/19at 15:48; Start 01/21/19 at 05:15; Stop 01/21/19 at 16:44 ; Status DC Fentanyl Citrate (Fentanyl 2ml Vial) 25 mcg PRN Q5MIN PRN IV MILD PAIN; Start 01/21/19 at 05:15; Stop 01/22/19 at 05:14 Fentanyl Citrate (Fentanyl 2ml Vial) 50 mcg PRN Q5MIN PRN IV MODERATE TO SEVERE PAIN; Start 01/21/19 at 05:15; Stop 01/22/19 at 05:14 Morphine Sulfate (Morphine Sulfate) 1 mg PRN Q10MIN PRN IV SEVERE PAIN; Start 01/21/19 at 05:15; Stop 01/22/19 at 05:14 Ringer's Solution 1,000 ml @ 30 mls/hr Q24H IV ; Start 01/21/19 at 05:15; Stop 01/21/19 at 09:41; Status DC Lidocaine HCl (Xylocaine-Mpf 1% 2ml Vial) 2 ml PRN 1X PRN ID PRIOR TO IV START ; Start 01/21/19 at 05:15; Stop 01/22/19 at 05:14 Hydromorphone HCl (Dilaudid) 0.5 mg PRN Q10MIN PRN IV SEV PAIN, Second choice; Start 01/21/19 at 05:15; Stop 01/22/19 at 05:14 Prochlorperazine Edisylate (Compazine) 5 mg PACU PRN PRN IV NAUSEA, MRX1; Start 01/21/19 at 05:15; Stop 01/22/19 at 05:14 Fentanyl Citrate (Fentanyl 2ml Vial) 100 mcg STK-MED ONCE .ROUTE ; Start at 05:26; Stop 01/21/19 at 05:27; Status DC Rocuronium Jefferson (Zemuron) 50 mg STK-MED ONCE .ROUTE ; Start 01/21/19 at 05:26 ; Stop 01/21/19 at 05:27; Status DC Propofol 20 ml @ As Directed STK-MED ONCE IV ; Start 01/21/19 at 05:27; Stop 08/01 at 05:28; Status DC Lidocaine HCl (Lidocaine Pf 2% Vial) 5 ml STK-MED ONCE .ROUTE ; Start 01/21/19 at 05:27; Stop 01/21/19 at 05:28; Status DC Dexamethasone Sodium Phosphate (Decadron) 20 mg STK-MED ONCE .ROUTE ; Start 08/01 at 05:27; Stop 01/21/19 at 05:28; Status DC Ondansetron HCl (Zofran) 4 mg STK-MED ONCE .ROUTE ; Start 01/21/19 at 05:27; Stop 01/21/19 at 05:28; Status DC Desflurane (Suprane) 60 ml STK-MED ONCE IH ; Start 01/21/19 at 05:28; Stop 01/21 at 05:29; Status DC Bupivacaine HCl/ Epinephrine Bitart (Sensorcain-Mpf Epi 0.5%-1:466312) 30 ml STK -MED ONCE .ROUTE Last administered on 01/21/19at 07:29; Start 01/21/19 at 05:30 ; Stop 01/21/19 at 06:31; Status DC Diphenhydramine HCl (Benadryl) 50 mg STK-MED ONCE .ROUTE ; Start 01/21/19 at 07: 18; Stop 01/21/19 at 07:19; Status DC Ketorolac Tromethamine (Toradol For Or Only) 30 mg STK-MED ONCE INJ ; Start 08/01 at 07:18; Stop 01/21/19 at 07:19; Status DC Glycopyrrolate (Robinul) 1 mg STK-MED ONCE .ROUTE ; Start 01/21/19 at 07:32; Stop 01/21/19 at 07:33; Status DC Neostigmine Methylsulfate (Neostigmine Methylsulfate) 5 mg STK-MED ONCE .ROUTE ; Start 01/21/19 at 07:32; Stop 01/21/19 at 07:33; Status DC Desflurane (Suprane) 60 ml STK-MED ONCE IH ; Start 01/21/19 at 07:52; Stop 01/21 at 07:53; Status DC Fentanyl Citrate (Fentanyl 2ml Vial) 100 mcg STK-MED ONCE .ROUTE ; Start at 08:38; Stop 01/21/19 at 08:39; Status DC Diphenhydramine HCl (Benadryl) 25 mg PRN Q6HRS PRN PO ITCHING; Start 01/21/19 at 09:00 Enoxaparin Sodium (Lovenox 40mg Syringe) 40 mg Q24H SQ ; Start 01/21/19 at 09:00 ; Stop 01/21/19 at 09:00; Status DC Sodium Chloride (Normal Saline Flush) 3 ml QSHIFT PRN IV AFTER MEDS AND BLOOD DRAWS; Start 01/21/19 at 09:00 Potassium Chloride/Sodium Chloride 1,000 ml @ 100 mls/hr Q10H IV Last administered on 01/21/19at 09:31; Start 01/21/19 at 09:00 Dextrose (Dextrose 50%-Water Syringe) 12.5 gm PRN Q15MIN PRN IV SEE COMMENTS; Start 01/21/19 at 09:00 Oxycodone/ Acetaminophen (Percocet 5/325) 1 tab PRN Q4HRS PRN PO MILD PAIN, 1ST CHOICE; Start 01/21/19 at 09:00 Oxycodone/ Acetaminophen (Percocet 5/325) 2 tab PRN Q4HRS PRN PO MODERATE PAIN , SEVERE PAIN Last administered on 01/21/19at 10:20; Start 01/21/19 at 09:00 Hydromorphone HCl (Dilaudid) 1 mg PRN Q3HRS PRN IV PAIN; Start 01/21/19 at 09: 00 Docusate Sodium (Colace) 100 mg BID PO Last administered on 01/21/19at 10:19; Start 01/21/19 at 09:00 Ondansetron HCl (Zofran) 4 mg PRN Q6HRS PRN IV NAUESA, 1ST CHOICE; Start at 09:00 Clonazepam (KlonoPIN) 0.5 mg DAILY PO ; Start 01/21/19 at 09:00; Stop 01/21/19 at 10:39; Status DC Fluoxetine HCl (PROzac) 10 mg DAILY PO ; Start 01/21/19 at 09:00; Stop 01/21/19 at 10:38; Status DC Levothyroxine Sodium (Synthroid) 175 mcg DAILY06 PO Last administered on at 09:30; Start 01/21/19 at 09:00 Non-Formulary Medication (Estradiol (Vivelle-Dot)) 1 patch TWICE WEEKLY TP ; Start 01/21/19 at 09:00; Status UNV [place] Carbonate 300 mg QHS PO ; Start 01/21/19 at 21:00; Stop 01/21/19 at 21: 00; Status DC Propranolol HCl (Inderal) 10 mg BID PO ; Start 01/21/19 at 09:00; Stop 01/21/19 at 10:38; Status DC Quetiapine Fumarate (SEROquel) 600 mg QHS PO ; Start 01/21/19 at 21:00; Stop 08/01 at 21:00; Status DC Enoxaparin Sodium (Lovenox 40mg Syringe) 40 mg Q24H SQ ; Start 01/21/19 at 21:00 Non-Formulary Medication (Cariprazine Hydrochloride (Vraylar)) 6 mg DAILY PO ; Start 01/22/19 at 09:00; Status UNV Estradiol (Estrace) 0.5 mg DAILY PO Last administered on 01/21/19at 10:54; Start 01/21/19 at 11:30 Lamotrigine (LaMICtal) 150 mg QHS PO ; Start 01/21/19 at 21:00 Topiramate (Topamax) 200 mg QHS PO ; Start 01/21/19 at 21:00 Fluoxetine HCl (PROzac) 20 mg DAILY PO Last administered on 01/21/19at 10:52; Start 01/21/19 at 11:30; Stop 01/21/19 at 12:22; Status DC Clonazepam (KlonoPIN) 0.5 mg BID PO Last administered on 01/21/19at 11:08; Start 01/21/19 at 11:30; Stop 01/21/19 at 13:44; Status DC Fluoxetine HCl (PROzac) 20 mg DAILY PO ; Start 01/22/19 at 09:00 Clonazepam (KlonoPIN) 0.5 mg BID@1030,1330 PO Last administered on 01/21/19at 13 :56; Start 01/21/19 at 14:00 Ringer's Solution 500 ml @ 500 mls/hr 1X ONCE IV Last administered on at 17:42; Start 01/21/19 at 17:30; Stop 01/21/19 at 18:29; Status DC Ondansetron HCl (Zofran) 4 mg PRN Q6HRS PRN IV NAUSEA/VOMITING; Start 01/21/19 at 17:45; Stop 01/22/19 at 17:44 Fentanyl Citrate (Fentanyl 2ml Vial) 25 mcg PRN Q5MIN PRN IV MILD PAIN; Start 01/21/19 at 17:45; Stop 01/22/19 at 17:44 Fentanyl Citrate (Fentanyl 2ml Vial) 50 mcg PRN Q5MIN PRN IV MODERATE TO SEVERE PAIN; Start 01/21/19 at 17:45; Stop 01/22/19 at 17:44 Morphine Sulfate (Morphine Sulfate) 1 mg PRN Q10MIN PRN IV SEVERE PAIN; Start 01/21/19 at 17:45; Stop 01/22/19 at 17:44 Ringer's Solution 1,000 ml @ 30 mls/hr Q24H IV ; Start 01/21/19 at 17:37; Stop 01/22/19 at 05:36 Hydromorphone HCl (Dilaudid) 0.5 mg PRN Q10MIN PRN IV SEV PAIN, Second choice; Start 01/21/19 at 17:45; Stop 01/22/19 at 17:44 Prochlorperazine Edisylate (Compazine) 5 mg PACU PRN PRN IV NAUSEA, MRX1; Start 01/21/19 at 17:45; Stop 01/22/19 at 17:44 Propofol 20 ml @ As Directed STK-MED ONCE IV ; Start 01/21/19 at 17:41; Stop 08/01 at 17:42; Status DC Dexamethasone Sodium Phosphate (Decadron) 20 mg STK-MED ONCE .ROUTE ; Start 08/01 at 17:41; Stop 01/21/19 at 17:42; Status DC Lidocaine HCl (Lidocaine Pf 2% Vial) 5 ml STK-MED ONCE .ROUTE ; Start 01/21/19 at 17:41; Stop 01/21/19 at 17:42; Status DC Ondansetron HCl (Zofran) 4 mg STK-MED ONCE .ROUTE ; Start 01/21/19 at 17:41; Stop 01/21/19 at 17:42; Status DC Rocuronium Jefferson (Zemuron) 50 mg STK-MED ONCE .ROUTE ; Start 01/21/19 at 17:41 ; Stop 01/21/19 at 17:42; Status DC Fentanyl Citrate (Fentanyl 2ml Vial) 100 mcg STK-MED ONCE .ROUTE ; Start at 17:41; Stop 01/21/19 at 17:42; Status DC Succinylcholine Chloride (Anectine) 200 mg STK-MED ONCE .ROUTE ; Start 01/21/19 at 17:43; Stop 01/21/19 at 17:44; Status DC Bupivacaine HCl/ Epinephrine Bitart (Sensorcain-Mpf Epi 0.5%-1:799950) 30 ml STK -MED ONCE .ROUTE Last administered on 01/21/19at 19:35; Start 01/21/19 at 16:44 ; Stop 01/21/19 at 17:44; Status DC Bacitracin (Bacitracin) 50,000 unit STK-MED ONCE IRR ; Start 01/21/19 at 16:44; Stop 01/21/19 at 17:44; Status DC Scopolamine (Transderm-Scop) 1 patch STK-MED ONCE TD ; Start 01/21/19 at 18:57; Stop 01/21/19 at 18:58; Status DC Ketamine HCl (Ketamine) 50 mg STK-MED ONCE .ROUTE ; Start 01/21/19 at 19:01; Stop 01/21/19 at 19:02; Status DC Cellulose (Surgicel Hemostat 4x8) 1 each STK-MED ONCE .ROUTE Last administered on 01/21/19at 20:09; Start 01/21/19 at 18:48; Stop 01/21/19 at 19:48; Status DC Albumin Human 500 ml @ As Directed STK-MED ONCE IV ; Start 01/21/19 at 19:49; Stop 01/21/19 at 19:50; Status DC Albumin Human 500 ml @ As Directed STK-MED ONCE IV ; Start 01/21/19 at 19:50; Stop 01/21/19 at 19:51; Status DC Phenylephrine HCl (PHENYLEPHRINE in 0.9% NACL PF) 1 mg STK-MED ONCE IV ; Start 01/21/19 at 19:50; Stop 01/21/19 at 19:51; Status DC Glycopyrrolate (Robinul) 1 mg STK-MED ONCE .ROUTE ; Start 01/21/19 at 20:29; Stop 01/21/19 at 20:30; Status DC Neostigmine Methylsulfate (Neostigmine Methylsulfate) 5 mg STK-MED ONCE .ROUTE ; Start 01/21/19 at 20:31; Stop 01/21/19 at 20:32; Status DC Sevoflurane (Ultane) 60 ml STK-MED ONCE IH ; Start 01/21/19 at 20:48; Stop 01/21 at 20:49; Status DC Cellulose (Surgicel Hemostat 4x8) 1 each STK-MED ONCE TP Last administered on at 20:19; Start 01/21/19 at 20:19; Stop 01/21/19 at 20:57; Status DC Active Scripts Active Reported Clonazepam 0.5 Mg Tablet 0.5 Mg PO BID Topiramate 100 Mg Tablet 200 Mg PO HS Lamictal (Lamotrigine) 150 Mg Tablet 150 Mg PO HS Vraylar (Cariprazine Hydrochloride) 6 Mg Capsule 6 Mg PO DAILY Estradiol 0.5 Mg Tablet 0.5 Mg PO DAILY Synthroid (Levothyroxine Sodium) 175 Mcg Tablet 1 Tab PO DAILY Prozac (Fluoxetine Hcl) 10 Mg Capsule 20 Mg PO DAILY Pertinent Labs/Test Laboratory Tests Test 01/21/19 10:15 01/21/19 16:30 01/21/19 16:55 01/21/19 20:02 White Blood Count 9.6 x10^3/uL (4.0-11.0) 18.0 x10^3/uL (4.0-11.0) Red Blood Count 3.82 x10^6/uL (3.50-5.40) 3.10 x10^6/uL (3.50-5.40) Hemoglobin 11.9 g/dL (12.0-15.5) 9.6 g/dL (12.0-15.5) Hematocrit 35.8 % (36.0-47.0) 29.1 % (36.0-47.0) Mean Corpuscular Volume 94 fL (79-100) 94 fL (79-100) Mean Corpuscular Hemoglobin 31 pg (25-35) 31 pg (25-35) Mean Corpuscular Hemoglobin Concent 33 g/dL (31-37) 33 g/dL (31-37) Red Cell Distribution Width 14.6 % (11.5-14.5) 14.8 % (11.5-14.5) Platelet Count 224 x10^3/uL (140-400) 300 x10^3/uL (140-400) Neutrophils (%) (Auto) 89 % (31-73) 89 % (31-73) Lymphocytes (%) (Auto) 9 % (24-48) 8 % (24-48) Monocytes (%) (Auto) 1 % (0-9) 3 % (0-9) Eosinophils (%) (Auto) 0 % (0-3) 0 % (0-3) Basophils (%) (Auto) 1 % (0-3) 0 % (0-3) Neutrophils # (Auto) 8.5 x10^3uL (1.8-7.7) 16.0 x10^3uL (1.8-7.7) Lymphocytes # (Auto) 0.9 x10^3/uL (1.0-4.8) 1.5 x10^3/uL (1.0-4.8) Monocytes # (Auto) 0.1 x10^3/uL (0.0-1.1) 0.5 x10^3/uL (0.0-1.1) Eosinophils # (Auto) 0.0 x10^3/uL (0.0-0.7) 0.0 x10^3/uL (0.0-0.7) Basophils # (Auto) 0.0 x10^3/uL (0.0-0.2) 0.0 x10^3/uL (0.0-0.2) Segmented Neutrophils % 86 % (35-66) 85 % (35-66) Band Neutrophils % 4 % (0-9) 5 % (0-9) Lymphocytes % 10 % (24-48) 9 % (24-48) Platelet Estimate Adequate (ADEQUATE) Adequate (ADEQUATE) Prothrombin Time 13.4 SEC (11.7-14.0) Prothromb Time International Ratio 1.1 (0.8-1.1) Sodium Level 137 mmol/L (136-145) 133 mmol/L (136-145) Potassium Level 4.3 mmol/L (3.5-5.1) 4.1 mmol/L (3.5-5.1) Chloride Level 103 mmol/L (98-107) 99 mmol/L (98-107) Carbon Dioxide Level 23 mmol/L (21-32) 15 mmol/L (21-32) Anion Gap 11 (6-14) 19 (6-14) Blood Urea Nitrogen 9 mg/dL (7-20) 14 mg/dL (7-20) Creatinine 0.9 mg/dL (0.6-1.0) 1.6 mg/dL (0.6-1.0) Estimated GFR (Cockcroft-Gault) 68.7 35.3 Glucose Level 169 mg/dL (70-99) 278 mg/dL (70-99) 140 mg/dL (70-99) Calcium Level 7.6 mg/dL (8.5-10.1) 7.8 mg/dL (8.5-10.1) BUN/Creatinine Ratio 9 (6-20) Magnesium Level 2.0 mg/dL (1.8-2.4) Total Bilirubin 0.2 mg/dL (0.2-1.0) Aspartate Amino Transf (AST/SGOT) 41 U/L (15-37) Alanine Aminotransferase (ALT/SGPT) 56 U/L (14-59) Alkaline Phosphatase 104 U/L (46-116) Total Protein 6.9 g/dL (6.4-8.2) Albumin 3.5 g/dL (3.4-5.0) Albumin/Globulin Ratio 1.0 (1.0-1.7) Monocytes % 1 % (0-10) Troponin I Quantitative < 0.017 ng/mL (0.000-0.055) Bedside Hematocrit 19 % (36-40) Arterial Blood pH (Temp corrected) 7.22 Arterial Blood pCO2 (Temp correct) 39 mmHg Arterial Blood pO2 (Temp corrected) 46 mmHg Bedside Venous pH 7.20 (7.32-7.42) Bedside Venous pCO2 43 mmHg (41-51) Bedside Venous pO2 53 mmHg (20-40) Bedside Venous HCO3 16 mmol/L (24-28) Bedside Venous Blood Total CO2 18 mmol/L (21-32) Bedside Venous Blood O2 Saturation 79 % Bedside Venous Blood Base Excess -12 mmol/L (0-3) POC Venous Hemoglobin (Calc) 6.5 g/dL (12-15) Bedside FiO2 100 Bedside Sodium 136 mmol/L (135-145) Bedside Potassium 3.8 mmol/L (3.5-5.0) Bedside Ionized Calcium (Dalia) 1.08 mmol/L (1.13-1.32) Test 01/21/19 20:15 White Blood Count 11.0 x10^3/uL (4.0-11.0) Red Blood Count 2.09 x10^6/uL (3.50-5.40) Hemoglobin 6.5 g/dL (12.0-15.5) Hematocrit 19.5 % (36.0-47.0) Mean Corpuscular Volume 94 fL (79-100) Mean Corpuscular Hemoglobin 31 pg (25-35) Mean Corpuscular Hemoglobin Concent 33 g/dL (31-37) Red Cell Distribution Width 15.0 % (11.5-14.5) Platelet Count 193 x10^3/uL (140-400) Neutrophils (%) (Auto) 83 % (31-73) Lymphocytes (%) (Auto) 10 % (24-48) Monocytes (%) (Auto) 7 % (0-9) Eosinophils (%) (Auto) 0 % (0-3) Basophils (%) (Auto) 0 % (0-3) Neutrophils # (Auto) 9.2 x10^3uL (1.8-7.7) Lymphocytes # (Auto) 1.1 x10^3/uL (1.0-4.8) Monocytes # (Auto) 0.8 x10^3/uL (0.0-1.1) Eosinophils # (Auto) 0.0 x10^3/uL (0.0-0.7) Basophils # (Auto) 0.0 x10^3/uL (0.0-0.2) Segmented Neutrophils % 73 % (35-66) Band Neutrophils % 10 % (0-9) Lymphocytes % 12 % (24-48) Monocytes % 5 % (0-10) Platelet Estimate Adequate (ADEQUATE) Giant Platelets Occ Laboratory Tests Test 01/21/19 10:15 01/21/19 16:30 01/21/19 16:55 01/21/19 20:02 White Blood Count 9.6 x10^3/uL (4.0-11.0) 18.0 x10^3/uL (4.0-11.0) Red Blood Count 3.82 x10^6/uL (3.50-5.40) 3.10 x10^6/uL (3.50-5.40) Hemoglobin 11.9 g/dL (12.0-15.5) 9.6 g/dL (12.0-15.5) Hematocrit 35.8 % (36.0-47.0) 29.1 % (36.0-47.0) Mean Corpuscular Volume 94 fL (79-100) 94 fL (79-100) Mean Corpuscular Hemoglobin 31 pg (25-35) 31 pg (25-35) Mean Corpuscular Hemoglobin Concent 33 g/dL (31-37) 33 g/dL (31-37) Red Cell Distribution Width 14.6 % (11.5-14.5) 14.8 % (11.5-14.5) Platelet Count 224 x10^3/uL (140-400) 300 x10^3/uL (140-400) Neutrophils (%) (Auto) 89 % (31-73) 89 % (31-73) Lymphocytes (%) (Auto) 9 % (24-48) 8 % (24-48) Monocytes (%) (Auto) 1 % (0-9) 3 % (0-9) Eosinophils (%) (Auto) 0 % (0-3) 0 % (0-3) Basophils (%) (Auto) 1 % (0-3) 0 % (0-3) Neutrophils # (Auto) 8.5 x10^3uL (1.8-7.7) 16.0 x10^3uL (1.8-7.7) Lymphocytes # (Auto) 0.9 x10^3/uL (1.0-4.8) 1.5 x10^3/uL (1.0-4.8) Monocytes # (Auto) 0.1 x10^3/uL (0.0-1.1) 0.5 x10^3/uL (0.0-1.1) Eosinophils # (Auto) 0.0 x10^3/uL (0.0-0.7) 0.0 x10^3/uL (0.0-0.7) Basophils # (Auto) 0.0 x10^3/uL (0.0-0.2) 0.0 x10^3/uL (0.0-0.2) Segmented Neutrophils % 86 % (35-66) 85 % (35-66) Band Neutrophils % 4 % (0-9) 5 % (0-9) Lymphocytes % 10 % (24-48) 9 % (24-48) Platelet Estimate Adequate (ADEQUATE) Adequate (ADEQUATE) Prothrombin Time 13.4 SEC (11.7-14.0) Prothromb Time International Ratio 1.1 (0.8-1.1) Sodium Level 137 mmol/L (136-145) 133 mmol/L (136-145) Potassium Level 4.3 mmol/L (3.5-5.1) 4.1 mmol/L (3.5-5.1) Chloride Level 103 mmol/L (98-107) 99 mmol/L (98-107) Carbon Dioxide Level 23 mmol/L (21-32) 15 mmol/L (21-32) Anion Gap 11 (6-14) 19 (6-14) Blood Urea Nitrogen 9 mg/dL (7-20) 14 mg/dL (7-20) Creatinine 0.9 mg/dL (0.6-1.0) 1.6 mg/dL (0.6-1.0) Estimated GFR (Cockcroft-Gault) 68.7 35.3 Glucose Level 169 mg/dL (70-99) 278 mg/dL (70-99) 140 mg/dL (70-99) Calcium Level 7.6 mg/dL (8.5-10.1) 7.8 mg/dL (8.5-10.1) BUN/Creatinine Ratio 9 (6-20) Magnesium Level 2.0 mg/dL (1.8-2.4) Total Bilirubin 0.2 mg/dL (0.2-1.0) Aspartate Amino Transf (AST/SGOT) 41 U/L (15-37) Alanine Aminotransferase (ALT/SGPT) 56 U/L (14-59) Alkaline Phosphatase 104 U/L (46-116) Total Protein 6.9 g/dL (6.4-8.2) Albumin 3.5 g/dL (3.4-5.0) Albumin/Globulin Ratio 1.0 (1.0-1.7) Monocytes % 1 % (0-10) Troponin I Quantitative < 0.017 ng/mL (0.000-0.055) Bedside Hematocrit 19 % (36-40) Arterial Blood pH (Temp corrected) 7.22 Arterial Blood pCO2 (Temp correct) 39 mmHg Arterial Blood pO2 (Temp corrected) 46 mmHg Bedside Venous pH 7.20 (7.32-7.42) Bedside Venous pCO2 43 mmHg (41-51) Bedside Venous pO2 53 mmHg (20-40) Bedside Venous HCO3 16 mmol/L (24-28) Bedside Venous Blood Total CO2 18 mmol/L (21-32) Bedside Venous Blood O2 Saturation 79 % Bedside Venous Blood Base Excess -12 mmol/L (0-3) POC Venous Hemoglobin (Calc) 6.5 g/dL (12-15) Bedside FiO2 100 Bedside Sodium 136 mmol/L (135-145) Bedside Potassium 3.8 mmol/L (3.5-5.0) Bedside Ionized Calcium (Dalia) 1.08 mmol/L (1.13-1.32) Test 01/21/19 20:15 White Blood Count 11.0 x10^3/uL (4.0-11.0) Red Blood Count 2.09 x10^6/uL (3.50-5.40) Hemoglobin 6.5 g/dL (12.0-15.5) Hematocrit 19.5 % (36.0-47.0) Mean Corpuscular Volume 94 fL (79-100) Mean Corpuscular Hemoglobin 31 pg (25-35) Mean Corpuscular Hemoglobin Concent 33 g/dL (31-37) Red Cell Distribution Width 15.0 % (11.5-14.5) Platelet Count 193 x10^3/uL (140-400) Neutrophils (%) (Auto) 83 % (31-73) Lymphocytes (%) (Auto) 10 % (24-48) Monocytes (%) (Auto) 7 % (0-9) Eosinophils (%) (Auto) 0 % (0-3) Basophils (%) (Auto) 0 % (0-3) Neutrophils # (Auto) 9.2 x10^3uL (1.8-7.7) Lymphocytes # (Auto) 1.1 x10^3/uL (1.0-4.8) Monocytes # (Auto) 0.8 x10^3/uL (0.0-1.1) Eosinophils # (Auto) 0.0 x10^3/uL (0.0-0.7) Basophils # (Auto) 0.0 x10^3/uL (0.0-0.2) Segmented Neutrophils % 73 % (35-66) Band Neutrophils % 10 % (0-9) Lymphocytes % 12 % (24-48) Monocytes % 5 % (0-10) Platelet Estimate Adequate (ADEQUATE) Giant Platelets Occ LAST VITALS Vital Signs Date Time Temp Pulse Resp B/P (MAP) Pulse Ox O2 Delivery O2 Flow Rate FiO2 01/21/19 16:30 148 105/74 (84) 93 Room Air 01/21/19 16:17 16 01/21/19 15:50 2.0 01/21/19 15:00 97.7 97.7 AMBROSIO CEDILLO MD Jan 21, 2019 21:19
[2019-01-21] MEDS ORDERED: CLON0.1T PO (21:47)
--- NOTE | 2019-01-21 22:03 | NUR ---
Patient admitted to ICU 110. Arrived via bed on simple face mask and conveyor monitor. Patients family at bedside talking with patient at this time.
--- NOTE | 2019-01-21 22:14 | OP ---
DATE OF SURGERY: 01/21/2019 PREOPERATIVE DIAGNOSIS: Hemoperitoneum. POSTOPERATIVE DIAGNOSIS: Hemoperitoneum. PROCEDURE: Laparoscopic exploration with control of bleeding. SURGEON: Sonali Kilgore M.D. STONE PAVER: Esau Newton M.D. ANESTHESIA: General endotracheal. ESTIMATED BLOOD LOSS: Approximately 100 mL of acute loss, approximately 2500 mL of old blood. IV REPLACEMENT: 1000 mL of albumin, 1000 mL of lactated Ringer's, 1 unit of packed red blood cells. URINE OUTPUT: 150 mL. INDICATIONS: The patient is a 43-year-old obese female who underwent a laparoscopic appendectomy earlier today. She developed some hypotension and tachycardia and was found to have dropped her hemoglobin from her preoperative state. CT scan showed a dense fluid in the abdomen consistent with blood and she was brought for exploration. OPERATIVE FINDINGS: Large amount of old blood was present. Some areas of oozing were found at the end of the mesoappendix staple line and from the peritoneal attachments along the lateral gutter. DESCRIPTION OF OPERATIVE REPORT: The patient brought to the operating suite, given a general endotracheal anesthetic. Saeed catheter placed to dependent drainage and the abdomen was prepped and draped in usual sterile fashion. An epigastric midline trocar site was infiltrated with local, incised and a 5 mm Visiport used to safely gain access into the abdominal cavity and pneumoperitoneum established. Camera inserted. The 3 previous port sites were inspected and showed no evidence of source of bleeding. The supraumbilical 12 mm port site was then reentered with a 12 port and the suprapubic location similarly with the 5 port. The abdomen was copiously irrigated with saline and old clot evacuated. The area of a previous mesoappendix staple line was carefully inspected and a large clip placed at the lateral aspect. When hemostasis appeared present, Surgicel was used to cover the mesoappendix staple line and the lateral gutter peritoneum. The 12 mm port was removed and the defect closed with a 0 Vicryl suture. Abdomen decompressed, ports removed and skin incisions closed with subcuticular 4-0 Monocryl. Sterile dressings applied. The patient awakened from her anesthetic and was transferred to the ICU in stable but guarded condition. During the procedure, her heart rate came down from 130-140 to 104. SONALI KILGORE MD DR: Conor JOB#: [id number] / [id number]
[2019-01-21] MEDS: IV RINGERS,LACTATED 1000ML 1,000 ML IV SCH (22:26)
[2019-01-21 23:03] LABS: BASO % 0 % (0-3); EOS % 0 % (0-3); HEMATOCRIT 23.1 % (36.0-47.0); HEMOGLOBIN 7.8 g/dL (12.0-15.5); LYMPH % 9 % (24-48); MEAN CORPUSCULAR HEMOGLOBIN 31 pg (25-35); MEAN CORPUSCULAR HGB CONC 34 g/dL (31-37); MEAN CORPUSCULAR VOLUME 92 fL (79-100); MONO # 0.3 x10^3/uL (0.0-1.1); MONO % 3 % (0-9); NEUT # 9.8 x10^3uL (1.8-7.7); NEUT % 88 % (31-73); PLATELET COUNT 172 x10^3/uL (140-400); RED BLOOD COUNT 2.51 x10^6/uL (3.50-5.40); RED CELL DISTRIBUTION WIDTH 15.4 % (11.5-14.5); WHITE BLOOD COUNT 11.1 x10^3/uL (4.0-11.0)
[2019-01-21 23:33] LABS: CALCIUM 7.1 mg/dL (8.5-10.1); GFR 60.8; POTASSIUM 4.1 mmol/L (3.5-5.1)
[2019-01-22] VITALS (13 sets, daily range): BP systolic 103–170; BP diastolic 57–86
[2019-01-22] MEDS: lamoTRIgine 100 MG TABLET. PO SCH (00:35)
[2019-01-22] MEDS: TOPIRAMATE 100 MG TABLET. PO SCH (00:36)
[2019-01-22] MEDS: ACETAMINOPHEN 325 MG TABLET. PO PRN ×4 (01:45→20:19)
[2019-01-22] MEDS: POTASSIUM CL 20MEQ-0.45% NACL 1,000 ML IV SCH ×2 (05:00→15:00)
[2019-01-22 05:41] LABS: BASO % 0 % (0-3); EOS % 0 % (0-3); HEMATOCRIT 22.2 % (36.0-47.0); HEMOGLOBIN 7.6 g/dL (12.0-15.5); LYMPH # 1.7 x10^3/uL (1.0-4.8); LYMPH % 15 % (24-48); MEAN CORPUSCULAR HEMOGLOBIN 31 pg (25-35); MEAN CORPUSCULAR HGB CONC 34 g/dL (31-37); MEAN CORPUSCULAR VOLUME 91 fL (79-100); MONO # 0.7 x10^3/uL (0.0-1.1); MONO % 6 % (0-9); NEUT # 9.2 x10^3uL (1.8-7.7); NEUT % 79 % (31-73); PLATELET COUNT 175 x10^3/uL (140-400); RED BLOOD COUNT 2.44 x10^6/uL (3.50-5.40); WHITE BLOOD COUNT 11.6 x10^3/uL (4.0-11.0)
[2019-01-22] MEDS: LEVOTHYROXINE 175 MCG TABLET PO SCH (05:48)
[2019-01-22 06:08] LABS: ALBUMIN 3.8 g/dL (3.4-5.0); ALBUMIN/GLOBULIN RATIO 1.5 (1.0-1.7); CALCIUM 7.3 mg/dL (8.5-10.1); CREATININE 0.9 mg/dL (0.6-1.0); GFR 68.7; POTASSIUM 3.7 mmol/L (3.5-5.1); TOTAL BILIRUBIN 0.3 mg/dL (0.2-1.0); TOTAL PROTEIN 6.3 g/dL (6.4-8.2)
[2019-01-22] MEDS: IV RINGERS,LACTATED 1000ML 1,000 ML IV SCH (07:30)
--- NOTE | 2019-01-22 08:47 | PDOC ---
PROGRESS NOTES Chief Complaint Chief Complaint s/p laparoscpic appendectomy s/p revision and control of bleeding abdominal pain secondary to the above. normocytic anemia status 1 unit of prbc transfusion due to the acute blood loss. leukocytosis reactive most liekly after surgical procedure obesity with BMI of 39 Plan: hemodyanmically stable diet as per surgical attending pain management further recommendations based on clincal course. History of Present Illness History of Present Illness Patient feeling better compared to yesterday. Still having abdominal discomfort but she is passing gases. Denies nausea hoping to be able to start the oral route fairly soon. Reassurance has been provided CONCERNS addressed to the best of my abilities Vitals Vitals Vital Signs Date Time Temp Pulse Resp B/P (MAP) Pulse Ox O2 Delivery O2 Flow Rate FiO2 01/22/19 06:00 117 16 119/68 (85) 96 Room Air 01/22/19 04:00 98.5 98.5 01/21/19 15:50 2.0 Physical Exam General: Alert, Oriented X3, No acute distress Heart: Other (increased rate) Lungs: Clear Abdomen: Soft, Other (mildly TTP right side) Extremities: No clubbing Skin: No rashes, No breakdown, No significant lesion Labs LABS Laboratory Tests Test 01/21/19 10:15 01/21/19 16:30 01/21/19 16:55 01/21/19 20:02 White Blood Count 9.6 x10^3/uL (4.0-11.0) 18.0 x10^3/uL (4.0-11.0) Red Blood Count 3.82 x10^6/uL (3.50-5.40) 3.10 x10^6/uL (3.50-5.40) Hemoglobin 11.9 g/dL (12.0-15.5) 9.6 g/dL (12.0-15.5) Hematocrit 35.8 % (36.0-47.0) 29.1 % (36.0-47.0) Mean Corpuscular Volume 94 fL (79-100) 94 fL (79-100) Mean Corpuscular Hemoglobin 31 pg (25-35) 31 pg (25-35) Mean Corpuscular Hemoglobin Concent 33 g/dL (31-37) 33 g/dL (31-37) Red Cell Distribution Width 14.6 % (11.5-14.5) 14.8 % (11.5-14.5) Platelet Count 224 x10^3/uL (140-400) 300 x10^3/uL (140-400) Neutrophils (%) (Auto) 89 % (31-73) 89 % (31-73) Lymphocytes (%) (Auto) 9 % (24-48) 8 % (24-48) Monocytes (%) (Auto) 1 % (0-9) 3 % (0-9) Eosinophils (%) (Auto) 0 % (0-3) 0 % (0-3) Basophils (%) (Auto) 1 % (0-3) 0 % (0-3) Neutrophils # (Auto) 8.5 x10^3uL (1.8-7.7) 16.0 x10^3uL (1.8-7.7) Lymphocytes # (Auto) 0.9 x10^3/uL (1.0-4.8) 1.5 x10^3/uL (1.0-4.8) Monocytes # (Auto) 0.1 x10^3/uL (0.0-1.1) 0.5 x10^3/uL (0.0-1.1) Eosinophils # (Auto) 0.0 x10^3/uL (0.0-0.7) 0.0 x10^3/uL (0.0-0.7) Basophils # (Auto) 0.0 x10^3/uL (0.0-0.2) 0.0 x10^3/uL (0.0-0.2) Segmented Neutrophils % 86 % (35-66) 85 % (35-66) Band Neutrophils % 4 % (0-9) 5 % (0-9) Lymphocytes % 10 % (24-48) 9 % (24-48) Platelet Estimate Adequate (ADEQUATE) Adequate (ADEQUATE) Prothrombin Time 13.4 SEC (11.7-14.0) Prothromb Time International Ratio 1.1 (0.8-1.1) Sodium Level 137 mmol/L (136-145) 133 mmol/L (136-145) Potassium Level 4.3 mmol/L (3.5-5.1) 4.1 mmol/L (3.5-5.1) Chloride Level 103 mmol/L (98-107) 99 mmol/L (98-107) Carbon Dioxide Level 23 mmol/L (21-32) 15 mmol/L (21-32) Anion Gap 11 (6-14) 19 (6-14) Blood Urea Nitrogen 9 mg/dL (7-20) 14 mg/dL (7-20) Creatinine 0.9 mg/dL (0.6-1.0) 1.6 mg/dL (0.6-1.0) Estimated GFR (Cockcroft-Gault) 68.7 35.3 Glucose Level 169 mg/dL (70-99) 278 mg/dL (70-99) 140 mg/dL (70-99) Calcium Level 7.6 mg/dL (8.5-10.1) 7.8 mg/dL (8.5-10.1) BUN/Creatinine Ratio 9 (6-20) Magnesium Level 2.0 mg/dL (1.8-2.4) Total Bilirubin 0.2 mg/dL (0.2-1.0) Aspartate Amino Transf (AST/SGOT) 41 U/L (15-37) Alanine Aminotransferase (ALT/SGPT) 56 U/L (14-59) Alkaline Phosphatase 104 U/L (46-116) Total Protein 6.9 g/dL (6.4-8.2) Albumin 3.5 g/dL (3.4-5.0) Albumin/Globulin Ratio 1.0 (1.0-1.7) Monocytes % 1 % (0-10) Troponin I Quantitative < 0.017 ng/mL (0.000-0.055) Bedside Hematocrit 19 % (36-40) Arterial Blood pH (Temp corrected) 7.22 Arterial Blood pCO2 (Temp correct) 39 mmHg Arterial Blood pO2 (Temp corrected) 46 mmHg Bedside Venous pH 7.20 (7.32-7.42) Bedside Venous pCO2 43 mmHg (41-51) Bedside Venous pO2 53 mmHg (20-40) Bedside Venous HCO3 16 mmol/L (24-28) Bedside Venous Blood Total CO2 18 mmol/L (21-32) Bedside Venous Blood O2 Saturation 79 % Bedside Venous Blood Base Excess -12 mmol/L (0-3) POC Venous Hemoglobin (Calc) 6.5 g/dL (12-15) Bedside FiO2 100 Bedside Sodium 136 mmol/L (135-145) Bedside Potassium 3.8 mmol/L (3.5-5.0) Bedside Ionized Calcium (Dalia) 1.08 mmol/L (1.13-1.32) Test 01/21/19 20:15 01/21/19 22:01 01/22/19 04:40 White Blood Count 11.0 x10^3/uL (4.0-11.0) 11.1 x10^3/uL (4.0-11.0) 11.6 x10^3/uL (4.0-11.0) Red Blood Count 2.09 x10^6/uL (3.50-5.40) 2.51 x10^6/uL (3.50-5.40) 2.44 x10^6/uL (3.50-5.40) Hemoglobin 6.5 g/dL (12.0-15.5) 7.8 g/dL (12.0-15.5) 7.6 g/dL (12.0-15.5) Hematocrit 19.5 % (36.0-47.0) 23.1 % (36.0-47.0) 22.2 % (36.0-47.0) Mean Corpuscular Volume 94 fL (79-100) 92 fL (79-100) 91 fL (79-100) Mean Corpuscular Hemoglobin 31 pg (25-35) 31 pg (25-35) 31 pg (25-35) Mean Corpuscular Hemoglobin Concent 33 g/dL (31-37) 34 g/dL (31-37) 34 g/dL (31-37) Red Cell Distribution Width 15.0 % (11.5-14.5) 15.4 % (11.5-14.5) 16.0 % (11.5-14.5) Platelet Count 193 x10^3/uL (140-400) 172 x10^3/uL (140-400) 175 x10^3/uL (140-400) Neutrophils (%) (Auto) 83 % (31-73) 88 % (31-73) 79 % (31-73) Lymphocytes (%) (Auto) 10 % (24-48) 9 % (24-48) 15 % (24-48) Monocytes (%) (Auto) 7 % (0-9) 3 % (0-9) 6 % (0-9) Eosinophils (%) (Auto) 0 % (0-3) 0 % (0-3) 0 % (0-3) Basophils (%) (Auto) 0 % (0-3) 0 % (0-3) 0 % (0-3) Neutrophils # (Auto) 9.2 x10^3uL (1.8-7.7) 9.8 x10^3uL (1.8-7.7) 9.2 x10^3uL (1.8-7.7) Lymphocytes # (Auto) 1.1 x10^3/uL (1.0-4.8) 1.0 x10^3/uL (1.0-4.8) 1.7 x10^3/uL (1.0-4.8) Monocytes # (Auto) 0.8 x10^3/uL (0.0-1.1) 0.3 x10^3/uL (0.0-1.1) 0.7 x10^3/uL (0.0-1.1) Eosinophils # (Auto) 0.0 x10^3/uL (0.0-0.7) 0.0 x10^3/uL (0.0-0.7) 0.0 x10^3/uL (0.0-0.7) Basophils # (Auto) 0.0 x10^3/uL (0.0-0.2) 0.0 x10^3/uL (0.0-0.2) 0.0 x10^3/uL (0.0-0.2) Segmented Neutrophils % 73 % (35-66) Band Neutrophils % 10 % (0-9) Lymphocytes % 12 % (24-48) Monocytes % 5 % (0-10) Platelet Estimate Adequate (ADEQUATE) Giant Platelets Occ Sodium Level 137 mmol/L (136-145) 140 mmol/L (136-145) Potassium Level 4.1 mmol/L (3.5-5.1) 3.7 mmol/L (3.5-5.1) Chloride Level 102 mmol/L (98-107) 105 mmol/L (98-107) Carbon Dioxide Level 21 mmol/L (21-32) 22 mmol/L (21-32) Anion Gap 14 (6-14) 13 (6-14) Blood Urea Nitrogen 11 mg/dL (7-20) 9 mg/dL (7-20) Creatinine 1.0 mg/dL (0.6-1.0) 0.9 mg/dL (0.6-1.0) Estimated GFR (Cockcroft-Gault) 60.8 68.7 Glucose Level 133 mg/dL (70-99) 115 mg/dL (70-99) Calcium Level 7.1 mg/dL (8.5-10.1) 7.3 mg/dL (8.5-10.1) BUN/Creatinine Ratio 10 (6-20) Total Bilirubin 0.3 mg/dL (0.2-1.0) Aspartate Amino Transf (AST/SGOT) 33 U/L (15-37) Alanine Aminotransferase (ALT/SGPT) 42 U/L (14-59) Alkaline Phosphatase 76 U/L (46-116) Total Protein 6.3 g/dL (6.4-8.2) Albumin 3.8 g/dL (3.4-5.0) Albumin/Globulin Ratio 1.5 (1.0-1.7) Comment Review of Relevant I have reviewed the following items baltazar (where applicable) has been applied. Labs Laboratory Tests Test 01/21/19 10:15 01/21/19 16:30 01/21/19 16:55 01/21/19 20:02 White Blood Count 9.6 x10^3/uL (4.0-11.0) 18.0 x10^3/uL (4.0-11.0) Red Blood Count 3.82 x10^6/uL (3.50-5.40) 3.10 x10^6/uL (3.50-5.40) Hemoglobin 11.9 g/dL (12.0-15.5) 9.6 g/dL (12.0-15.5) Hematocrit 35.8 % (36.0-47.0) 29.1 % (36.0-47.0) Mean Corpuscular Volume 94 fL (79-100) 94 fL (79-100) Mean Corpuscular Hemoglobin 31 pg (25-35) 31 pg (25-35) Mean Corpuscular Hemoglobin Concent 33 g/dL (31-37) 33 g/dL (31-37) Red Cell Distribution Width 14.6 % (11.5-14.5) 14.8 % (11.5-14.5) Platelet Count 224 x10^3/uL (140-400) 300 x10^3/uL (140-400) Neutrophils (%) (Auto) 89 % (31-73) 89 % (31-73) Lymphocytes (%) (Auto) 9 % (24-48) 8 % (24-48) Monocytes (%) (Auto) 1 % (0-9) 3 % (0-9) Eosinophils (%) (Auto) 0 % (0-3) 0 % (0-3) Basophils (%) (Auto) 1 % (0-3) 0 % (0-3) Neutrophils # (Auto) 8.5 x10^3uL (1.8-7.7) 16.0 x10^3uL (1.8-7.7) Lymphocytes # (Auto) 0.9 x10^3/uL (1.0-4.8) 1.5 x10^3/uL (1.0-4.8) Monocytes # (Auto) 0.1 x10^3/uL (0.0-1.1) 0.5 x10^3/uL (0.0-1.1) Eosinophils # (Auto) 0.0 x10^3/uL (0.0-0.7) 0.0 x10^3/uL (0.0-0.7) Basophils # (Auto) 0.0 x10^3/uL (0.0-0.2) 0.0 x10^3/uL (0.0-0.2) Segmented Neutrophils % 86 % (35-66) 85 % (35-66) Band Neutrophils % 4 % (0-9) 5 % (0-9) Lymphocytes % 10 % (24-48) 9 % (24-48) Platelet Estimate Adequate (ADEQUATE) Adequate (ADEQUATE) Prothrombin Time 13.4 SEC (11.7-14.0) Prothromb Time International Ratio 1.1 (0.8-1.1) Sodium Level 137 mmol/L (136-145) 133 mmol/L (136-145) Potassium Level 4.3 mmol/L (3.5-5.1) 4.1 mmol/L (3.5-5.1) Chloride Level 103 mmol/L (98-107) 99 mmol/L (98-107) Carbon Dioxide Level 23 mmol/L (21-32) 15 mmol/L (21-32) Anion Gap 11 (6-14) 19 (6-14) Blood Urea Nitrogen 9 mg/dL (7-20) 14 mg/dL (7-20) Creatinine 0.9 mg/dL (0.6-1.0) 1.6 mg/dL (0.6-1.0) Estimated GFR (Cockcroft-Gault) 68.7 35.3 Glucose Level 169 mg/dL (70-99) 278 mg/dL (70-99) 140 mg/dL (70-99) Calcium Level 7.6 mg/dL (8.5-10.1) 7.8 mg/dL (8.5-10.1) BUN/Creatinine Ratio 9 (6-20) Magnesium Level 2.0 mg/dL (1.8-2.4) Total Bilirubin 0.2 mg/dL (0.2-1.0) Aspartate Amino Transf (AST/SGOT) 41 U/L (15-37) Alanine Aminotransferase (ALT/SGPT) 56 U/L (14-59) Alkaline Phosphatase 104 U/L (46-116) Total Protein 6.9 g/dL (6.4-8.2) Albumin 3.5 g/dL (3.4-5.0) Albumin/Globulin Ratio 1.0 (1.0-1.7) Monocytes % 1 % (0-10) Troponin I Quantitative < 0.017 ng/mL (0.000-0.055) Bedside Hematocrit 19 % (36-40) Arterial Blood pH (Temp corrected) 7.22 Arterial Blood pCO2 (Temp correct) 39 mmHg Arterial Blood pO2 (Temp corrected) 46 mmHg Bedside Venous pH 7.20 (7.32-7.42) Bedside Venous pCO2 43 mmHg (41-51) Bedside Venous pO2 53 mmHg (20-40) Bedside Venous HCO3 16 mmol/L (24-28) Bedside Venous Blood Total CO2 18 mmol/L (21-32) Bedside Venous Blood O2 Saturation 79 % Bedside Venous Blood Base Excess -12 mmol/L (0-3) POC Venous Hemoglobin (Calc) 6.5 g/dL (12-15) Bedside FiO2 100 Bedside Sodium 136 mmol/L (135-145) Bedside Potassium 3.8 mmol/L (3.5-5.0) Bedside Ionized Calcium (Dalia) 1.08 mmol/L (1.13-1.32) Test 01/21/19 20:15 01/21/19 22:01 01/22/19 04:40 White Blood Count 11.0 x10^3/uL (4.0-11.0) 11.1 x10^3/uL (4.0-11.0) 11.6 x10^3/uL (4.0-11.0) Red Blood Count 2.09 x10^6/uL (3.50-5.40) 2.51 x10^6/uL (3.50-5.40) 2.44 x10^6/uL (3.50-5.40) Hemoglobin 6.5 g/dL (12.0-15.5) 7.8 g/dL (12.0-15.5) 7.6 g/dL (12.0-15.5) Hematocrit 19.5 % (36.0-47.0) 23.1 % (36.0-47.0) 22.2 % (36.0-47.0) Mean Corpuscular Volume 94 fL (79-100) 92 fL (79-100) 91 fL (79-100) Mean Corpuscular Hemoglobin 31 pg (25-35) 31 pg (25-35) 31 pg (25-35) Mean Corpuscular Hemoglobin Concent 33 g/dL (31-37) 34 g/dL (31-37) 34 g/dL (31-37) Red Cell Distribution Width 15.0 % (11.5-14.5) 15.4 % (11.5-14.5) 16.0 % (11.5-14.5) Platelet Count 193 x10^3/uL (140-400) 172 x10^3/uL (140-400) 175 x10^3/uL (140-400) Neutrophils (%) (Auto) 83 % (31-73) 88 % (31-73) 79 % (31-73) Lymphocytes (%) (Auto) 10 % (24-48) 9 % (24-48) 15 % (24-48) Monocytes (%) (Auto) 7 % (0-9) 3 % (0-9) 6 % (0-9) Eosinophils (%) (Auto) 0 % (0-3) 0 % (0-3) 0 % (0-3) Basophils (%) (Auto) 0 % (0-3) 0 % (0-3) 0 % (0-3) Neutrophils # (Auto) 9.2 x10^3uL (1.8-7.7) 9.8 x10^3uL (1.8-7.7) 9.2 x10^3uL (1.8-7.7) Lymphocytes # (Auto) 1.1 x10^3/uL (1.0-4.8) 1.0 x10^3/uL (1.0-4.8) 1.7 x10^3/uL (1.0-4.8) Monocytes # (Auto) 0.8 x10^3/uL (0.0-1.1) 0.3 x10^3/uL (0.0-1.1) 0.7 x10^3/uL (0.0-1.1) Eosinophils # (Auto) 0.0 x10^3/uL (0.0-0.7) 0.0 x10^3/uL (0.0-0.7) 0.0 x10^3/uL (0.0-0.7) Basophils # (Auto) 0.0 x10^3/uL (0.0-0.2) 0.0 x10^3/uL (0.0-0.2) 0.0 x10^3/uL (0.0-0.2) Segmented Neutrophils % 73 % (35-66) Band Neutrophils % 10 % (0-9) Lymphocytes % 12 % (24-48) Monocytes % 5 % (0-10) Platelet Estimate Adequate (ADEQUATE) Giant Platelets Occ Sodium Level 137 mmol/L (136-145) 140 mmol/L (136-145) Potassium Level 4.1 mmol/L (3.5-5.1) 3.7 mmol/L (3.5-5.1) Chloride Level 102 mmol/L (98-107) 105 mmol/L (98-107) Carbon Dioxide Level 21 mmol/L (21-32) 22 mmol/L (21-32) Anion Gap 14 (6-14) 13 (6-14) Blood Urea Nitrogen 11 mg/dL (7-20) 9 mg/dL (7-20) Creatinine 1.0 mg/dL (0.6-1.0) 0.9 mg/dL (0.6-1.0) Estimated GFR (Cockcroft-Gault) 60.8 68.7 Glucose Level 133 mg/dL (70-99) 115 mg/dL (70-99) Calcium Level 7.1 mg/dL (8.5-10.1) 7.3 mg/dL (8.5-10.1) BUN/Creatinine Ratio 10 (6-20) Total Bilirubin 0.3 mg/dL (0.2-1.0) Aspartate Amino Transf (AST/SGOT) 33 U/L (15-37) Alanine Aminotransferase (ALT/SGPT) 42 U/L (14-59) Alkaline Phosphatase 76 U/L (46-116) Total Protein 6.3 g/dL (6.4-8.2) Albumin 3.8 g/dL (3.4-5.0) Albumin/Globulin Ratio 1.5 (1.0-1.7) Laboratory Tests Test 01/21/19 10:15 01/21/19 16:30 01/21/19 16:55 01/21/19 20:02 White Blood Count 9.6 x10^3/uL (4.0-11.0) 18.0 x10^3/uL (4.0-11.0) Red Blood Count 3.82 x10^6/uL (3.50-5.40) 3.10 x10^6/uL (3.50-5.40) Hemoglobin 11.9 g/dL (12.0-15.5) 9.6 g/dL (12.0-15.5) Hematocrit 35.8 % (36.0-47.0) 29.1 % (36.0-47.0) Mean Corpuscular Volume 94 fL (79-100) 94 fL (79-100) Mean Corpuscular Hemoglobin 31 pg (25-35) 31 pg (25-35) Mean Corpuscular Hemoglobin Concent 33 g/dL (31-37) 33 g/dL (31-37) Red Cell Distribution Width 14.6 % (11.5-14.5) 14.8 % (11.5-14.5) Platelet Count 224 x10^3/uL (140-400) 300 x10^3/uL (140-400) Neutrophils (%) (Auto) 89 % (31-73) 89 % (31-73) Lymphocytes (%) (Auto) 9 % (24-48) 8 % (24-48) Monocytes (%) (Auto) 1 % (0-9) 3 % (0-9) Eosinophils (%) (Auto) 0 % (0-3) 0 % (0-3) Basophils (%) (Auto) 1 % (0-3) 0 % (0-3) Neutrophils # (Auto) 8.5 x10^3uL (1.8-7.7) 16.0 x10^3uL (1.8-7.7) Lymphocytes # (Auto) 0.9 x10^3/uL (1.0-4.8) 1.5 x10^3/uL (1.0-4.8) Monocytes # (Auto) 0.1 x10^3/uL (0.0-1.1) 0.5 x10^3/uL (0.0-1.1) Eosinophils # (Auto) 0.0 x10^3/uL (0.0-0.7) 0.0 x10^3/uL (0.0-0.7) Basophils # (Auto) 0.0 x10^3/uL (0.0-0.2) 0.0 x10^3/uL (0.0-0.2) Segmented Neutrophils % 86 % (35-66) 85 % (35-66) Band Neutrophils % 4 % (0-9) 5 % (0-9) Lymphocytes % 10 % (24-48) 9 % (24-48) Platelet Estimate Adequate (ADEQUATE) Adequate (ADEQUATE) Prothrombin Time 13.4 SEC (11.7-14.0) Prothromb Time International Ratio 1.1 (0.8-1.1) Sodium Level 137 mmol/L (136-145) 133 mmol/L (136-145) Potassium Level 4.3 mmol/L (3.5-5.1) 4.1 mmol/L (3.5-5.1) Chloride Level 103 mmol/L (98-107) 99 mmol/L (98-107) Carbon Dioxide Level 23 mmol/L (21-32) 15 mmol/L (21-32) Anion Gap 11 (6-14) 19 (6-14) Blood Urea Nitrogen 9 mg/dL (7-20) 14 mg/dL (7-20) Creatinine 0.9 mg/dL (0.6-1.0) 1.6 mg/dL (0.6-1.0) Estimated GFR (Cockcroft-Gault) 68.7 35.3 Glucose Level 169 mg/dL (70-99) 278 mg/dL (70-99) 140 mg/dL (70-99) Calcium Level 7.6 mg/dL (8.5-10.1) 7.8 mg/dL (8.5-10.1) BUN/Creatinine Ratio 9 (6-20) Magnesium Level 2.0 mg/dL (1.8-2.4) Total Bilirubin 0.2 mg/dL (0.2-1.0) Aspartate Amino Transf (AST/SGOT) 41 U/L (15-37) Alanine Aminotransferase (ALT/SGPT) 56 U/L (14-59) Alkaline Phosphatase 104 U/L (46-116) Total Protein 6.9 g/dL (6.4-8.2) Albumin 3.5 g/dL (3.4-5.0) Albumin/Globulin Ratio 1.0 (1.0-1.7) Monocytes % 1 % (0-10) Troponin I Quantitative < 0.017 ng/mL (0.000-0.055) Bedside Hematocrit 19 % (36-40) Arterial Blood pH (Temp corrected) 7.22 Arterial Blood pCO2 (Temp correct) 39 mmHg Arterial Blood pO2 (Temp corrected) 46 mmHg Bedside Venous pH 7.20 (7.32-7.42) Bedside Venous pCO2 43 mmHg (41-51) Bedside Venous pO2 53 mmHg (20-40) Bedside Venous HCO3 16 mmol/L (24-28) Bedside Venous Blood Total CO2 18 mmol/L (21-32) Bedside Venous Blood O2 Saturation 79 % Bedside Venous Blood Base Excess -12 mmol/L (0-3) POC Venous Hemoglobin (Calc) 6.5 g/dL (12-15) Bedside FiO2 100 Bedside Sodium 136 mmol/L (135-145) Bedside Potassium 3.8 mmol/L (3.5-5.0) Bedside Ionized Calcium (Dalia) 1.08 mmol/L (1.13-1.32) Test 01/21/19 20:15 01/21/19 22:01 01/22/19 04:40 White Blood Count 11.0 x10^3/uL (4.0-11.0) 11.1 x10^3/uL (4.0-11.0) 11.6 x10^3/uL (4.0-11.0) Red Blood Count 2.09 x10^6/uL (3.50-5.40) 2.51 x10^6/uL (3.50-5.40) 2.44 x10^6/uL (3.50-5.40) Hemoglobin 6.5 g/dL (12.0-15.5) 7.8 g/dL (12.0-15.5) 7.6 g/dL (12.0-15.5) Hematocrit 19.5 % (36.0-47.0) 23.1 % (36.0-47.0) 22.2 % (36.0-47.0) Mean Corpuscular Volume 94 fL (79-100) 92 fL (79-100) 91 fL (79-100) Mean Corpuscular Hemoglobin 31 pg (25-35) 31 pg (25-35) 31 pg (25-35) Mean Corpuscular Hemoglobin Concent 33 g/dL (31-37) 34 g/dL (31-37) 34 g/dL (31-37) Red Cell Distribution Width 15.0 % (11.5-14.5) 15.4 % (11.5-14.5) 16.0 % (11.5-14.5) Platelet Count 193 x10^3/uL (140-400) 172 x10^3/uL (140-400) 175 x10^3/uL (140-400) Neutrophils (%) (Auto) 83 % (31-73) 88 % (31-73) 79 % (31-73) Lymphocytes (%) (Auto) 10 % (24-48) 9 % (24-48) 15 % (24-48) Monocytes (%) (Auto) 7 % (0-9) 3 % (0-9) 6 % (0-9) Eosinophils (%) (Auto) 0 % (0-3) 0 % (0-3) 0 % (0-3) Basophils (%) (Auto) 0 % (0-3) 0 % (0-3) 0 % (0-3) Neutrophils # (Auto) 9.2 x10^3uL (1.8-7.7) 9.8 x10^3uL (1.8-7.7) 9.2 x10^3uL (1.8-7.7) Lymphocytes # (Auto) 1.1 x10^3/uL (1.0-4.8) 1.0 x10^3/uL (1.0-4.8) 1.7 x10^3/uL (1.0-4.8) Monocytes # (Auto) 0.8 x10^3/uL (0.0-1.1) 0.3 x10^3/uL (0.0-1.1) 0.7 x10^3/uL (0.0-1.1) Eosinophils # (Auto) 0.0 x10^3/uL (0.0-0.7) 0.0 x10^3/uL (0.0-0.7) 0.0 x10^3/uL (0.0-0.7) Basophils # (Auto) 0.0 x10^3/uL (0.0-0.2) 0.0 x10^3/uL (0.0-0.2) 0.0 x10^3/uL (0.0-0.2) Segmented Neutrophils % 73 % (35-66) Band Neutrophils % 10 % (0-9) Lymphocytes % 12 % (24-48) Monocytes % 5 % (0-10) Platelet Estimate Adequate (ADEQUATE) Giant Platelets Occ Sodium Level 137 mmol/L (136-145) 140 mmol/L (136-145) Potassium Level 4.1 mmol/L (3.5-5.1) 3.7 mmol/L (3.5-5.1) Chloride Level 102 mmol/L (98-107) 105 mmol/L (98-107) Carbon Dioxide Level 21 mmol/L (21-32) 22 mmol/L (21-32) Anion Gap 14 (6-14) 13 (6-14) Blood Urea Nitrogen 11 mg/dL (7-20) 9 mg/dL (7-20) Creatinine 1.0 mg/dL (0.6-1.0) 0.9 mg/dL (0.6-1.0) Estimated GFR (Cockcroft-Gault) 60.8 68.7 Glucose Level 133 mg/dL (70-99) 115 mg/dL (70-99) Calcium Level 7.1 mg/dL (8.5-10.1) 7.3 mg/dL (8.5-10.1) BUN/Creatinine Ratio 10 (6-20) Total Bilirubin 0.3 mg/dL (0.2-1.0) Aspartate Amino Transf (AST/SGOT) 33 U/L (15-37) Alanine Aminotransferase (ALT/SGPT) 42 U/L (14-59) Alkaline Phosphatase 76 U/L (46-116) Total Protein 6.3 g/dL (6.4-8.2) Albumin 3.8 g/dL (3.4-5.0) Albumin/Globulin Ratio 1.5 (1.0-1.7) Medications Current Medications Sodium Chloride 1,000 ml @ 100 mls/hr Q10H IV Last administered on 01/21/19at 01:23; Start 01/21/19 at 00:45; Stop 01/21/19 at 21:25; Status DC Fentanyl Citrate (Fentanyl 2ml Vial) 50 mcg PRN Q2HR PRN IV PAIN Last administered on 01/21/19at 13:56; Start 01/21/19 at 00:45 Ondansetron HCl (Zofran) 4 mg PRN Q6HRS PRN IV NAUSEA/VOMITING; Start 01/21/19 at 00:45; Stop 01/21/19 at 08:54; Status DC Cefazolin Sodium 3 gm/Dextrose 100 ml @ 200 mls/hr 1X PREOP PRN IV protocol Last administered on 01/21/19at 20:50; Start 01/21/19 at 06:00; Stop 01/22/19 at 15:00 Metronidazole 100 ml @ 100 mls/hr 1X PREOP PRN IV protocol Last administered on 01/21/19at 19:18; Start 01/21/19 at 06:00; Stop 01/22/19 at 18:00 Ondansetron HCl (Zofran) 4 mg PRN Q6HRS PRN IV NAUSEA/VOMITING Last administered on 01/21/19at 15:48; Start 01/21/19 at 05:15; Stop 01/21/19 at 16:44 ; Status DC Fentanyl Citrate (Fentanyl 2ml Vial) 25 mcg PRN Q5MIN PRN IV MILD PAIN; Start 01/21/19 at 05:15; Stop 01/22/19 at 05:14; Status DC Fentanyl Citrate (Fentanyl 2ml Vial) 50 mcg PRN Q5MIN PRN IV MODERATE TO SEVERE PAIN; Start 01/21/19 at 05:15; Stop 01/22/19 at 05:14; Status DC Morphine Sulfate (Morphine Sulfate) 1 mg PRN Q10MIN PRN IV SEVERE PAIN; Start 01/21/19 at 05:15; Stop 01/22/19 at 05:14; Status DC Ringer's Solution 1,000 ml @ 30 mls/hr Q24H IV ; Start 01/21/19 at 05:15; Stop 01/21/19 at 09:41; Status DC Lidocaine HCl (Xylocaine-Mpf 1% 2ml Vial) 2 ml PRN 1X PRN ID PRIOR TO IV START ; Start 01/21/19 at 05:15; Stop 01/22/19 at 05:14; Status DC Hydromorphone HCl (Dilaudid) 0.5 mg PRN Q10MIN PRN IV SEV PAIN, Second choice; Start 01/21/19 at 05:15; Stop 01/22/19 at 05:14; Status DC Prochlorperazine Edisylate (Compazine) 5 mg PACU PRN PRN IV NAUSEA, MRX1; Start 01/21/19 at 05:15; Stop 01/22/19 at 05:14; Status DC Fentanyl Citrate (Fentanyl 2ml Vial) 100 mcg STK-MED ONCE .ROUTE ; Start at 05:26; Stop 01/21/19 at 05:27; Status DC Rocuronium [place] (Zemuron) 50 mg STK-MED ONCE .ROUTE ; Start 01/21/19 at 05:26 ; Stop 01/21/19 at 05:27; Status DC Propofol 20 ml @ As Directed STK-MED ONCE IV ; Start 01/21/19 at 05:27; Stop 08/01 at 05:28; Status DC Lidocaine HCl (Lidocaine Pf 2% Vial) 5 ml STK-MED ONCE .ROUTE ; Start 01/21/19 at 05:27; Stop 01/21/19 at 05:28; Status DC Dexamethasone Sodium Phosphate (Decadron) 20 mg STK-MED ONCE .ROUTE ; Start 08/01 at 05:27; Stop 01/21/19 at 05:28; Status DC Ondansetron HCl (Zofran) 4 mg STK-MED ONCE .ROUTE ; Start 01/21/19 at 05:27; Stop 01/21/19 at 05:28; Status DC Desflurane (Suprane) 60 ml STK-MED ONCE IH ; Start 01/21/19 at 05:28; Stop 01/21 at 05:29; Status DC Bupivacaine HCl/ Epinephrine Bitart (Sensorcain-Mpf Epi 0.5%-[id number]) 30 ml STK -MED ONCE .ROUTE Last administered on 01/21/19at 07:29; Start 01/21/19 at 05:30 ; Stop 01/21/19 at 06:31; Status DC Diphenhydramine HCl (Benadryl) 50 mg STK-MED ONCE .ROUTE ; Start 01/21/19 at 07: 18; Stop 01/21/19 at 07:19; Status DC Ketorolac Tromethamine (Toradol For Or Only) 30 mg STK-MED ONCE INJ ; Start 08/01 at 07:18; Stop 01/21/19 at 07:19; Status DC Glycopyrrolate (Robinul) 1 mg STK-MED ONCE .ROUTE ; Start 01/21/19 at 07:32; Stop 01/21/19 at 07:33; Status DC Neostigmine Methylsulfate (Neostigmine Methylsulfate) 5 mg STK-MED ONCE .ROUTE ; Start 01/21/19 at 07:32; Stop 01/21/19 at 07:33; Status DC Desflurane (Suprane) 60 ml STK-MED ONCE IH ; Start 01/21/19 at 07:52; Stop 01/21 at 07:53; Status DC Fentanyl Citrate (Fentanyl 2ml Vial) 100 mcg STK-MED ONCE .ROUTE ; Start at 08:38; Stop 01/21/19 at 08:39; Status DC Diphenhydramine HCl (Benadryl) 25 mg PRN Q6HRS PRN PO ITCHING; Start 01/21/19 at 09:00 Enoxaparin Sodium (Lovenox 40mg Syringe) 40 mg Q24H SQ ; Start 01/21/19 at 09:00 ; Stop 01/21/19 at 09:00; Status DC Sodium Chloride (Normal Saline Flush) 3 ml QSHIFT PRN IV AFTER MEDS AND BLOOD DRAWS; Start 01/21/19 at 09:00 Potassium Chloride/Sodium Chloride 1,000 ml @ 100 mls/hr Q10H IV Last administered on 01/21/19at 22:25; Start 01/21/19 at 09:00 Dextrose (Dextrose 50%-Water Syringe) 12.5 gm PRN Q15MIN PRN IV SEE COMMENTS; Start 01/21/19 at 09:00 Oxycodone/ Acetaminophen (Percocet 5/325) 1 tab PRN Q4HRS PRN PO MILD PAIN, 1ST CHOICE; Start 01/21/19 at 09:00 Oxycodone/ Acetaminophen (Percocet 5/325) 2 tab PRN Q4HRS PRN PO MODERATE PAIN , SEVERE PAIN Last administered on 01/21/19at 10:20; Start 01/21/19 at 09:00 Hydromorphone HCl (Dilaudid) 1 mg PRN Q3HRS PRN IV PAIN; Start 01/21/19 at 09: 00 Docusate Sodium (Colace) 100 mg BID PO Last administered on 01/21/19at 10:19; Start 01/21/19 at 09:00 Ondansetron HCl (Zofran) 4 mg PRN Q6HRS PRN IV NAUESA, 1ST CHOICE; Start at 09:00 Clonazepam (KlonoPIN) 0.5 mg DAILY PO ; Start 01/21/19 at 09:00; Stop 01/21/19 at 10:39; Status DC Fluoxetine HCl (PROzac) 10 mg DAILY PO ; Start 01/21/19 at 09:00; Stop 01/21/19 at 10:38; Status DC Levothyroxine Sodium (Synthroid) 175 mcg DAILY06 PO Last administered on at 05:48; Start 01/21/19 at 09:00 Non-Formulary Medication (Estradiol (Vivelle-Dot)) 1 patch TWICE WEEKLY TP ; Start 01/21/19 at 09:00; Status UNV [place] Carbonate 300 mg QHS PO ; Start 01/21/19 at 21:00; Stop 01/21/19 at 21: 00; Status DC Propranolol HCl (Inderal) 10 mg BID PO ; Start 01/21/19 at 09:00; Stop 01/21/19 at 10:38; Status DC Quetiapine Fumarate (SEROquel) 600 mg QHS PO ; Start 01/21/19 at 21:00; Stop 08/01 at 21:00; Status DC Enoxaparin Sodium (Lovenox 40mg Syringe) 40 mg Q24H SQ ; Start 01/21/19 at 21:00 Non-Formulary Medication (Cariprazine Hydrochloride (Vraylar)) 6 mg DAILY PO ; Start 01/22/19 at 09:00; Status UNV Estradiol (Estrace) 0.5 mg DAILY PO Last administered on 01/21/19at 10:54; Start 01/21/19 at 11:30 Lamotrigine (LaMICtal) 150 mg QHS PO Last administered on 01/22/19at 00:35; Start 01/21/19 at 21:00 Topiramate (Topamax) 200 mg QHS PO Last administered on 01/22/19at 00:36; Start 01/21/19 at 21:00 Fluoxetine HCl (PROzac) 20 mg DAILY PO Last administered on 01/21/19at 10:52; Start 01/21/19 at 11:30; Stop 01/21/19 at 12:22; Status DC Clonazepam (KlonoPIN) 0.5 mg BID PO Last administered on 01/21/19at 11:08; Start 01/21/19 at 11:30; Stop 01/21/19 at 13:44; Status DC Fluoxetine HCl (PROzac) 20 mg DAILY PO ; Start 01/22/19 at 09:00 Clonazepam (KlonoPIN) 0.5 mg BID@1030,1330 PO Last administered on 01/21/19at 13 :56; Start 01/21/19 at 14:00 Ringer's Solution 500 ml @ 500 mls/hr 1X ONCE IV Last administered on at 17:42; Start 01/21/19 at 17:30; Stop 01/21/19 at 18:29; Status DC Ondansetron HCl (Zofran) 4 mg PRN Q6HRS PRN IV NAUSEA/VOMITING; Start 01/21/19 at 17:45; Stop 01/22/19 at 17:44 Fentanyl Citrate (Fentanyl 2ml Vial) 25 mcg PRN Q5MIN PRN IV MILD PAIN; Start 01/21/19 at 17:45; Stop 01/22/19 at 17:44 Fentanyl Citrate (Fentanyl 2ml Vial) 50 mcg PRN Q5MIN PRN IV MODERATE TO SEVERE PAIN; Start 01/21/19 at 17:45; Stop 01/22/19 at 17:44 Morphine Sulfate (Morphine Sulfate) 1 mg PRN Q10MIN PRN IV SEVERE PAIN; Start 01/21/19 at 17:45; Stop 01/22/19 at 17:44 Ringer's Solution 1,000 ml @ 30 mls/hr Q24H IV ; Start 01/21/19 at 17:37; Stop 01/21/19 at 21:25; Status DC Hydromorphone HCl (Dilaudid) 0.5 mg PRN Q10MIN PRN IV SEV PAIN, Second choice; Start 01/21/19 at 17:45; Stop 01/22/19 at 17:44 Prochlorperazine Edisylate (Compazine) 5 mg PACU PRN PRN IV NAUSEA, MRX1; Start 01/21/19 at 17:45; Stop 01/22/19 at 17:44 Propofol 20 ml @ As Directed STK-MED ONCE IV ; Start 01/21/19 at 17:41; Stop 08/01 at 17:42; Status DC Dexamethasone Sodium Phosphate (Decadron) 20 mg STK-MED ONCE .ROUTE ; Start 08/01 at 17:41; Stop 01/21/19 at 17:42; Status DC Lidocaine HCl (Lidocaine Pf 2% Vial) 5 ml STK-MED ONCE .ROUTE ; Start 01/21/19 at 17:41; Stop 01/21/19 at 17:42; Status DC Ondansetron HCl (Zofran) 4 mg STK-MED ONCE .ROUTE ; Start 01/21/19 at 17:41; Stop 01/21/19 at 17:42; Status DC Rocuronium [place] (Zemuron) 50 mg STK-MED ONCE .ROUTE ; Start 01/21/19 at 17:41 ; Stop 01/21/19 at 17:42; Status DC Fentanyl Citrate (Fentanyl 2ml Vial) 100 mcg STK-MED ONCE .ROUTE ; Start at 17:41; Stop 01/21/19 at 17:42; Status DC Succinylcholine Chloride (Anectine) 200 mg STK-MED ONCE .ROUTE ; Start 01/21/19 at 17:43; Stop 01/21/19 at 17:44; Status DC Bupivacaine HCl/ Epinephrine Bitart (Sensorcain-Mpf Epi 0.5%-1:[id number]) 30 ml STK -MED ONCE .ROUTE Last administered on 01/21/19at 19:35; Start 01/21/19 at 16:44 ; Stop 01/21/19 at 17:44; Status DC Bacitracin (Bacitracin) 50,000 unit STK-MED ONCE IRR ; Start 01/21/19 at 16:44; Stop 01/21/19 at 17:44; Status DC Scopolamine (Transderm-Scop) 1 patch STK-MED ONCE TD ; Start 01/21/19 at 18:57; Stop 01/21/19 at 18:58; Status DC Ketamine HCl (Ketamine) 50 mg STK-MED ONCE .ROUTE ; Start 01/21/19 at 19:01; Stop 01/21/19 at 19:02; Status DC Cellulose (Surgicel Hemostat 4x8) 1 each STK-MED ONCE .ROUTE Last administered on 01/21/19at 20:09; Start 01/21/19 at 18:48; Stop 01/21/19 at 19:48; Status DC Albumin Human 500 ml @ As Directed STK-MED ONCE IV ; Start 01/21/19 at 19:49; Stop 01/21/19 at 19:50; Status DC Albumin Human 500 ml @ As Directed STK-MED ONCE IV ; Start 01/21/19 at 19:50; Stop 01/21/19 at 19:51; Status DC Phenylephrine HCl (PHENYLEPHRINE in 0.9% NACL PF) 1 mg STK-MED ONCE IV ; Start 01/21/19 at 19:50; Stop 01/21/19 at 19:51; Status DC Glycopyrrolate (Robinul) 1 mg STK-MED ONCE .ROUTE ; Start 01/21/19 at 20:29; Stop 01/21/19 at 20:30; Status DC Neostigmine Methylsulfate (Neostigmine Methylsulfate) 5 mg STK-MED ONCE .ROUTE ; Start 01/21/19 at 20:31; Stop 01/21/19 at 20:32; Status DC Sevoflurane (Ultane) 60 ml STK-MED ONCE IH ; Start 01/21/19 at 20:48; Stop 01/21 at 20:49; Status DC Cellulose (Surgicel Hemostat 4x8) 1 each STK-MED ONCE TP Last administered on at 20:19; Start 01/21/19 at 20:19; Stop 01/21/19 at 20:57; Status DC Ringer's Solution 1,000 ml @ 100 mls/hr Q10H IV Last administered on at 22:26; Start 01/21/19 at 21:30 Acetaminophen (Tylenol) 650 mg PRN Q6HRS PRN PO MILD PAIN Last administered on 01/22/19at 07:18; Start 01/22/19 at 00:30 Active Scripts Active Reported Clonidine Hcl 0.1 Mg Tablet 0.1 Mg PO BID Clonazepam 0.5 Mg Tablet 0.5 Mg PO BID Topiramate 100 Mg Tablet 200 Mg PO HS Lamictal (Lamotrigine) 150 Mg Tablet 150 Mg PO HS Vraylar (Cariprazine Hydrochloride) 6 Mg Capsule 6 Mg PO DAILY Estradiol 0.5 Mg Tablet 0.5 Mg PO DAILY Synthroid (Levothyroxine Sodium) 175 Mcg Tablet 1 Tab PO DAILY Prozac (Fluoxetine Hcl) 10 Mg Capsule 20 Mg PO DAILY Vitals/I & O Vital Sign - Last 24 Hours 01/21/19 01/21/19 01/21/19 01/21/19 08:54 09:00 09:25 09:30 Temp 98.6 98.6 Pulse 86 91 Resp 12 15 18 B/P (MAP) 114/75 124/77 (93) Pulse Ox 96 96 97 O2 Delivery Room Air Nasal Cannula Nasal Cannula Nasal Cannula O2 Flow Rate 2 2.0 2.0 01/21/19 01/21/19 01/21/19 01/21/19 09:45 10:00 10:15 10:20 Pulse 103 96 96 Resp 18 18 18 B/P (MAP) 137/82 (100) 123/72 (89) 116/73 (87) Pulse Ox 99 96 96 O2 Delivery Nasal Cannula Room Air Room Air Room Air O2 Flow Rate 2.0 01/21/19 01/21/19 01/21/19 01/21/19 10:45 11:09 11:15 13:56 Pulse 105 102 Resp 18 18 B/P (MAP) 122/97 (105) 120/84 (96) Pulse Ox 96 96 96 O2 Delivery Room Air Room Air Room Air Room Air 01/21/19 01/21/19 01/21/19 01/21/19 15:00 15:50 16:17 16:30 Temp 97.7 97.7 Pulse 89 146 148 Resp 18 16 B/P (MAP) 125/80 (95) 85/55 (65) 105/74 (84) Pulse Ox 97 97 96 93 O2 Delivery Room Air Nasal Cannula Room Air Room Air O2 Flow Rate 2.0 01/21/19 01/21/19 01/21/19 01/21/19 17:30 21:00 21:00 21:15 Temp 98.5 98.5 Pulse 114 110 Resp 16 19 B/P (MAP) 97/56 (70) 106/63 (77) Pulse Ox 93 93 O2 Delivery Room Air Room Air Room Air Room Air 01/21/19 01/21/19 01/21/19 01/21/19 21:30 21:45 22:00 23:00 Pulse 104 110 108 107 Resp 12 17 16 16 B/P (MAP) 140/66 (90) 142/67 (92) 153/66 (95) 139/69 (92) Pulse Ox 93 93 94 94 O2 Delivery Room Air Room Air Room Air Room Air 01/21/19 01/21/19 01/21/19 01/22/19 23:00 23:59 23:59 01:00 Temp 98.5 98.4 98.5 98.4 Pulse 110 112 109 Resp 22 16 16 B/P (MAP) 145/61 158/73 (101) 170/86 (114) Pulse Ox 94 94 O2 Delivery Room Air Room Air Room Air 01/22/19 01/22/19 01/22/19 01/22/19 02:00 03:02 04:00 04:00 Temp 98.5 98.5 Pulse 112 111 113 Resp 16 16 16 B/P (MAP) 133/72 (92) 149/72 (97) 119/86 (97) Pulse Ox 94 97 95 O2 Delivery Room Air Room Air Room Air Room Air 01/22/19 01/22/19 05:00 06:00 Pulse 110 117 Resp 16 16 B/P (MAP) 124/66 (85) 119/68 (85) Pulse Ox 95 96 O2 Delivery Room Air Room Air Intake and Output 01/21/19 01/21/19 01/22/19 14:59 22:59 06:59 Intake Total 1700 ml 476 ml Output Total 75 ml 270 ml 1390 ml Balance 1625 ml -270 ml -914 ml JODI RECIO MD Jan 22, 2019 08:46
--- NOTE | 2019-01-22 08:52 | RAD ---
Examination: PORTABLE CHEST 1V History: CENTRAL LINE PLACEMENT Comparison/Correlation: 08/29/2015 AP view of the chest Findings: Portable supine frontal view chest was obtained with the patient supine. Right internal jugular catheter is overlying superior vena cava-right atrium junction. Surgical clips are noted at the base of the neck. Heart size is within normal limits. Minimal left basilar linear scarring or atelectasis noted. Impression: No suspicious infiltrate. No pneumothorax. Right internal jugular catheter is in place. Electronically signed by: Jerrod Dorado MD (01/22/2019 8:49 AM) [facility]
[2019-01-22] MEDS: CARIPRAZINE HYDROCHLORIDE 6 MG PO SCH (09:00)
[2019-01-22] MEDS: ESTRADIOL 1 MG TABLET. PO SCH (09:00)
[2019-01-22] MEDS: FLUoxetine HCL 20 MG CAPSULE PO SCH (09:24)
[2019-01-22] MEDS: DOCUSATE SODIUM 100 MG CAPSULE. PO SCH ×2 (09:24→20:19)
[2019-01-22] MEDS ORDERED: IV RINGERS,LACTATED 1000ML 1,000 ML IV SCH (10:07)
[2019-01-22] MEDS ORDERED: HYDROmorphone 2 MG/ML VIAL IV PRN (10:15)
[2019-01-22] MEDS ORDERED: MORPHINE SULFATE 2 MG/ML VIAL. IV PRN (10:15)
[2019-01-22] MEDS ORDERED: fentaNYL PF VIAL 100 MCG/2 ML VIAL IV PRN ×2 (10:15)
[2019-01-22] MEDS ORDERED: ONDANSETRON PF 4 MG/2 ML VIAL. IV PRN (10:15)
[2019-01-22] MEDS ORDERED: PROCHLORPERAZINE 10 MG/2 ML VIAL. IV PRN (10:15)
[2019-01-22] MEDS ORDERED: LIDOCAINE 1% PF 2 ML VIAL. ID PRN (10:15)
[2019-01-22] MEDS: clonazePAM 0.5 MG TABLET PO SCH ×2 (10:41→14:20)
--- NOTE | 2019-01-22 10:45 | PDOC ---
SURGICAL PROGRESS NOTE Subjective sitting on the side of the bed, on her cell phone mom at bedside Vital Signs Vital Signs Date Time Temp Pulse Resp B/P (MAP) Pulse Ox O2 Delivery O2 Flow Rate FiO2 01/22/19 08:00 Room Air 01/22/19 06:00 117 16 119/68 (85) 96 01/22/19 04:00 98.5 98.5 01/21/19 15:50 2.0 HR down, BP better I&O Intake and Output 01/22/19 07:00 Intake Total 2276 ml Output Total 1735 ml Balance 541 ml Intake Oral 400 ml IV Total 1400 ml Blood Product 326 ml Blood Product IV Normal Saline Flush 150 ml Output Urine Total 1710 ml Estimated Blood Loss 25 ml PATIENT HAS A DOAN: Yes General: Alert, Oriented X3, No acute distress HEENT: Other (good color) Lungs: Normal air movement Labs Laboratory Tests Test 01/21/19 10:15 01/21/19 16:30 01/21/19 16:55 01/21/19 20:02 White Blood Count 9.6 x10^3/uL (4.0-11.0) 18.0 x10^3/uL (4.0-11.0) Red Blood Count 3.82 x10^6/uL (3.50-5.40) 3.10 x10^6/uL (3.50-5.40) Hemoglobin 11.9 g/dL (12.0-15.5) 9.6 g/dL (12.0-15.5) Hematocrit 35.8 % (36.0-47.0) 29.1 % (36.0-47.0) Mean Corpuscular Volume 94 fL (79-100) 94 fL (79-100) Mean Corpuscular Hemoglobin 31 pg (25-35) 31 pg (25-35) Mean Corpuscular Hemoglobin Concent 33 g/dL (31-37) 33 g/dL (31-37) Red Cell Distribution Width 14.6 % (11.5-14.5) 14.8 % (11.5-14.5) Platelet Count 224 x10^3/uL (140-400) 300 x10^3/uL (140-400) Neutrophils (%) (Auto) 89 % (31-73) 89 % (31-73) Lymphocytes (%) (Auto) 9 % (24-48) 8 % (24-48) Monocytes (%) (Auto) 1 % (0-9) 3 % (0-9) Eosinophils (%) (Auto) 0 % (0-3) 0 % (0-3) Basophils (%) (Auto) 1 % (0-3) 0 % (0-3) Neutrophils # (Auto) 8.5 x10^3uL (1.8-7.7) 16.0 x10^3uL (1.8-7.7) Lymphocytes # (Auto) 0.9 x10^3/uL (1.0-4.8) 1.5 x10^3/uL (1.0-4.8) Monocytes # (Auto) 0.1 x10^3/uL (0.0-1.1) 0.5 x10^3/uL (0.0-1.1) Eosinophils # (Auto) 0.0 x10^3/uL (0.0-0.7) 0.0 x10^3/uL (0.0-0.7) Basophils # (Auto) 0.0 x10^3/uL (0.0-0.2) 0.0 x10^3/uL (0.0-0.2) Segmented Neutrophils % 86 % (35-66) 85 % (35-66) Band Neutrophils % 4 % (0-9) 5 % (0-9) Lymphocytes % 10 % (24-48) 9 % (24-48) Platelet Estimate Adequate (ADEQUATE) Adequate (ADEQUATE) Prothrombin Time 13.4 SEC (11.7-14.0) Prothromb Time International Ratio 1.1 (0.8-1.1) Sodium Level 137 mmol/L (136-145) 133 mmol/L (136-145) Potassium Level 4.3 mmol/L (3.5-5.1) 4.1 mmol/L (3.5-5.1) Chloride Level 103 mmol/L (98-107) 99 mmol/L (98-107) Carbon Dioxide Level 23 mmol/L (21-32) 15 mmol/L (21-32) Anion Gap 11 (6-14) 19 (6-14) Blood Urea Nitrogen 9 mg/dL (7-20) 14 mg/dL (7-20) Creatinine 0.9 mg/dL (0.6-1.0) 1.6 mg/dL (0.6-1.0) Estimated GFR (Cockcroft-Gault) 68.7 35.3 Glucose Level 169 mg/dL (70-99) 278 mg/dL (70-99) 140 mg/dL (70-99) Calcium Level 7.6 mg/dL (8.5-10.1) 7.8 mg/dL (8.5-10.1) BUN/Creatinine Ratio 9 (6-20) Magnesium Level 2.0 mg/dL (1.8-2.4) Total Bilirubin 0.2 mg/dL (0.2-1.0) Aspartate Amino Transf (AST/SGOT) 41 U/L (15-37) Alanine Aminotransferase (ALT/SGPT) 56 U/L (14-59) Alkaline Phosphatase 104 U/L (46-116) Total Protein 6.9 g/dL (6.4-8.2) Albumin 3.5 g/dL (3.4-5.0) Albumin/Globulin Ratio 1.0 (1.0-1.7) Monocytes % 1 % (0-10) Troponin I Quantitative < 0.017 ng/mL (0.000-0.055) Bedside Hematocrit 19 % (36-40) Arterial Blood pH (Temp corrected) 7.22 Arterial Blood pCO2 (Temp correct) 39 mmHg Arterial Blood pO2 (Temp corrected) 46 mmHg Bedside Venous pH 7.20 (7.32-7.42) Bedside Venous pCO2 43 mmHg (41-51) Bedside Venous pO2 53 mmHg (20-40) Bedside Venous HCO3 16 mmol/L (24-28) Bedside Venous Blood Total CO2 18 mmol/L (21-32) Bedside Venous Blood O2 Saturation 79 % Bedside Venous Blood Base Excess -12 mmol/L (0-3) POC Venous Hemoglobin (Calc) 6.5 g/dL (12-15) Bedside FiO2 100 Bedside Sodium 136 mmol/L (135-145) Bedside Potassium 3.8 mmol/L (3.5-5.0) Bedside Ionized Calcium (Dalia) 1.08 mmol/L (1.13-1.32) Test 01/21/19 20:15 01/21/19 22:01 01/22/19 04:40 White Blood Count 11.0 x10^3/uL (4.0-11.0) 11.1 x10^3/uL (4.0-11.0) 11.6 x10^3/uL (4.0-11.0) Red Blood Count 2.09 x10^6/uL (3.50-5.40) 2.51 x10^6/uL (3.50-5.40) 2.44 x10^6/uL (3.50-5.40) Hemoglobin 6.5 g/dL (12.0-15.5) 7.8 g/dL (12.0-15.5) 7.6 g/dL (12.0-15.5) Hematocrit 19.5 % (36.0-47.0) 23.1 % (36.0-47.0) 22.2 % (36.0-47.0) Mean Corpuscular Volume 94 fL (79-100) 92 fL (79-100) 91 fL (79-100) Mean Corpuscular Hemoglobin 31 pg (25-35) 31 pg (25-35) 31 pg (25-35) Mean Corpuscular Hemoglobin Concent 33 g/dL (31-37) 34 g/dL (31-37) 34 g/dL (31-37) Red Cell Distribution Width 15.0 % (11.5-14.5) 15.4 % (11.5-14.5) 16.0 % (11.5-14.5) Platelet Count 193 x10^3/uL (140-400) 172 x10^3/uL (140-400) 175 x10^3/uL (140-400) Neutrophils (%) (Auto) 83 % (31-73) 88 % (31-73) 79 % (31-73) Lymphocytes (%) (Auto) 10 % (24-48) 9 % (24-48) 15 % (24-48) Monocytes (%) (Auto) 7 % (0-9) 3 % (0-9) 6 % (0-9) Eosinophils (%) (Auto) 0 % (0-3) 0 % (0-3) 0 % (0-3) Basophils (%) (Auto) 0 % (0-3) 0 % (0-3) 0 % (0-3) Neutrophils # (Auto) 9.2 x10^3uL (1.8-7.7) 9.8 x10^3uL (1.8-7.7) 9.2 x10^3uL (1.8-7.7) Lymphocytes # (Auto) 1.1 x10^3/uL (1.0-4.8) 1.0 x10^3/uL (1.0-4.8) 1.7 x10^3/uL (1.0-4.8) Monocytes # (Auto) 0.8 x10^3/uL (0.0-1.1) 0.3 x10^3/uL (0.0-1.1) 0.7 x10^3/uL (0.0-1.1) Eosinophils # (Auto) 0.0 x10^3/uL (0.0-0.7) 0.0 x10^3/uL (0.0-0.7) 0.0 x10^3/uL (0.0-0.7) Basophils # (Auto) 0.0 x10^3/uL (0.0-0.2) 0.0 x10^3/uL (0.0-0.2) 0.0 x10^3/uL (0.0-0.2) Segmented Neutrophils % 73 % (35-66) Band Neutrophils % 10 % (0-9) Lymphocytes % 12 % (24-48) Monocytes % 5 % (0-10) Platelet Estimate Adequate (ADEQUATE) Giant Platelets Occ Sodium Level 137 mmol/L (136-145) 140 mmol/L (136-145) Potassium Level 4.1 mmol/L (3.5-5.1) 3.7 mmol/L (3.5-5.1) Chloride Level 102 mmol/L (98-107) 105 mmol/L (98-107) Carbon Dioxide Level 21 mmol/L (21-32) 22 mmol/L (21-32) Anion Gap 14 (6-14) 13 (6-14) Blood Urea Nitrogen 11 mg/dL (7-20) 9 mg/dL (7-20) Creatinine 1.0 mg/dL (0.6-1.0) 0.9 mg/dL (0.6-1.0) Estimated GFR (Cockcroft-Gault) 60.8 68.7 Glucose Level 133 mg/dL (70-99) 115 mg/dL (70-99) Calcium Level 7.1 mg/dL (8.5-10.1) 7.3 mg/dL (8.5-10.1) BUN/Creatinine Ratio 10 (6-20) Total Bilirubin 0.3 mg/dL (0.2-1.0) Aspartate Amino Transf (AST/SGOT) 33 U/L (15-37) Alanine Aminotransferase (ALT/SGPT) 42 U/L (14-59) Alkaline Phosphatase 76 U/L (46-116) Total Protein 6.3 g/dL (6.4-8.2) Albumin 3.8 g/dL (3.4-5.0) Albumin/Globulin Ratio 1.5 (1.0-1.7) Laboratory Tests Test 01/21/19 16:30 01/21/19 16:55 01/21/19 20:02 01/21/19 20:15 Sodium Level 133 mmol/L (136-145) Potassium Level 4.1 mmol/L (3.5-5.1) Chloride Level 99 mmol/L (98-107) Carbon Dioxide Level 15 mmol/L (21-32) Anion Gap 19 (6-14) Blood Urea Nitrogen 14 mg/dL (7-20) Creatinine 1.6 mg/dL (0.6-1.0) Estimated GFR (Cockcroft-Gault) 35.3 BUN/Creatinine Ratio 9 (6-20) Glucose Level 278 mg/dL (70-99) 140 mg/dL (70-99) Calcium Level 7.8 mg/dL (8.5-10.1) Magnesium Level 2.0 mg/dL (1.8-2.4) Total Bilirubin 0.2 mg/dL (0.2-1.0) Aspartate Amino Transf (AST/SGOT) 41 U/L (15-37) Alanine Aminotransferase (ALT/SGPT) 56 U/L (14-59) Alkaline Phosphatase 104 U/L (46-116) Total Protein 6.9 g/dL (6.4-8.2) Albumin 3.5 g/dL (3.4-5.0) Albumin/Globulin Ratio 1.0 (1.0-1.7) White Blood Count 18.0 x10^3/uL (4.0-11.0) 11.0 x10^3/uL (4.0-11.0) Red Blood Count 3.10 x10^6/uL (3.50-5.40) 2.09 x10^6/uL (3.50-5.40) Hemoglobin 9.6 g/dL (12.0-15.5) 6.5 g/dL (12.0-15.5) Hematocrit 29.1 % (36.0-47.0) 19.5 % (36.0-47.0) Mean Corpuscular Volume 94 fL (79-100) 94 fL (79-100) Mean Corpuscular Hemoglobin 31 pg (25-35) 31 pg (25-35) Mean Corpuscular Hemoglobin Concent 33 g/dL (31-37) 33 g/dL (31-37) Red Cell Distribution Width 14.8 % (11.5-14.5) 15.0 % (11.5-14.5) Platelet Count 300 x10^3/uL (140-400) 193 x10^3/uL (140-400) Neutrophils (%) (Auto) 89 % (31-73) 83 % (31-73) Lymphocytes (%) (Auto) 8 % (24-48) 10 % (24-48) Monocytes (%) (Auto) 3 % (0-9) 7 % (0-9) Eosinophils (%) (Auto) 0 % (0-3) 0 % (0-3) Basophils (%) (Auto) 0 % (0-3) 0 % (0-3) Neutrophils # (Auto) 16.0 x10^3uL (1.8-7.7) 9.2 x10^3uL (1.8-7.7) Lymphocytes # (Auto) 1.5 x10^3/uL (1.0-4.8) 1.1 x10^3/uL (1.0-4.8) Monocytes # (Auto) 0.5 x10^3/uL (0.0-1.1) 0.8 x10^3/uL (0.0-1.1) Eosinophils # (Auto) 0.0 x10^3/uL (0.0-0.7) 0.0 x10^3/uL (0.0-0.7) Basophils # (Auto) 0.0 x10^3/uL (0.0-0.2) 0.0 x10^3/uL (0.0-0.2) Segmented Neutrophils % 85 % (35-66) 73 % (35-66) Band Neutrophils % 5 % (0-9) 10 % (0-9) Lymphocytes % 9 % (24-48) 12 % (24-48) Monocytes % 1 % (0-10) 5 % (0-10) Platelet Estimate Adequate (ADEQUATE) Adequate (ADEQUATE) Troponin I Quantitative < 0.017 ng/mL (0.000-0.055) Bedside Hematocrit 19 % (36-40) Arterial Blood pH (Temp corrected) 7.22 Arterial Blood pCO2 (Temp correct) 39 mmHg Arterial Blood pO2 (Temp corrected) 46 mmHg Bedside Venous pH 7.20 (7.32-7.42) Bedside Venous pCO2 43 mmHg (41-51) Bedside Venous pO2 53 mmHg (20-40) Bedside Venous HCO3 16 mmol/L (24-28) Bedside Venous Blood Total CO2 18 mmol/L (21-32) Bedside Venous Blood O2 Saturation 79 % Bedside Venous Blood Base Excess -12 mmol/L (0-3) POC Venous Hemoglobin (Calc) 6.5 g/dL (12-15) Bedside FiO2 100 Bedside Sodium 136 mmol/L (135-145) Bedside Potassium 3.8 mmol/L (3.5-5.0) Bedside Ionized Calcium (Dalia) 1.08 mmol/L (1.13-1.32) Giant Platelets Occ Test 01/21/19 22:01 01/22/19 04:40 White Blood Count 11.1 x10^3/uL (4.0-11.0) 11.6 x10^3/uL (4.0-11.0) Red Blood Count 2.51 x10^6/uL (3.50-5.40) 2.44 x10^6/uL (3.50-5.40) Hemoglobin 7.8 g/dL (12.0-15.5) 7.6 g/dL (12.0-15.5) Hematocrit 23.1 % (36.0-47.0) 22.2 % (36.0-47.0) Mean Corpuscular Volume 92 fL (79-100) 91 fL (79-100) Mean Corpuscular Hemoglobin 31 pg (25-35) 31 pg (25-35) Mean Corpuscular Hemoglobin Concent 34 g/dL (31-37) 34 g/dL (31-37) Red Cell Distribution Width 15.4 % (11.5-14.5) 16.0 % (11.5-14.5) Platelet Count 172 x10^3/uL (140-400) 175 x10^3/uL (140-400) Neutrophils (%) (Auto) 88 % (31-73) 79 % (31-73) Lymphocytes (%) (Auto) 9 % (24-48) 15 % (24-48) Monocytes (%) (Auto) 3 % (0-9) 6 % (0-9) Eosinophils (%) (Auto) 0 % (0-3) 0 % (0-3) Basophils (%) (Auto) 0 % (0-3) 0 % (0-3) Neutrophils # (Auto) 9.8 x10^3uL (1.8-7.7) 9.2 x10^3uL (1.8-7.7) Lymphocytes # (Auto) 1.0 x10^3/uL (1.0-4.8) 1.7 x10^3/uL (1.0-4.8) Monocytes # (Auto) 0.3 x10^3/uL (0.0-1.1) 0.7 x10^3/uL (0.0-1.1) Eosinophils # (Auto) 0.0 x10^3/uL (0.0-0.7) 0.0 x10^3/uL (0.0-0.7) Basophils # (Auto) 0.0 x10^3/uL (0.0-0.2) 0.0 x10^3/uL (0.0-0.2) Sodium Level 137 mmol/L (136-145) 140 mmol/L (136-145) Potassium Level 4.1 mmol/L (3.5-5.1) 3.7 mmol/L (3.5-5.1) Chloride Level 102 mmol/L (98-107) 105 mmol/L (98-107) Carbon Dioxide Level 21 mmol/L (21-32) 22 mmol/L (21-32) Anion Gap 14 (6-14) 13 (6-14) Blood Urea Nitrogen 11 mg/dL (7-20) 9 mg/dL (7-20) Creatinine 1.0 mg/dL (0.6-1.0) 0.9 mg/dL (0.6-1.0) Estimated GFR (Cockcroft-Gault) 60.8 68.7 Glucose Level 133 mg/dL (70-99) 115 mg/dL (70-99) Calcium Level 7.1 mg/dL (8.5-10.1) 7.3 mg/dL (8.5-10.1) BUN/Creatinine Ratio 10 (6-20) Total Bilirubin 0.3 mg/dL (0.2-1.0) Aspartate Amino Transf (AST/SGOT) 33 U/L (15-37) Alanine Aminotransferase (ALT/SGPT) 42 U/L (14-59) Alkaline Phosphatase 76 U/L (46-116) Total Protein 6.3 g/dL (6.4-8.2) Albumin 3.8 g/dL (3.4-5.0) Albumin/Globulin Ratio 1.5 (1.0-1.7) Hb stable Problem List POD 1 l/s appy, l/s exploration to floor monitor labs SONALI KILGORE MD Jan 22, 2019 10:45
--- NOTE | 2019-01-22 17:07 | PATHOLOGY ---
[facility] Accession Number: [id number] . 01 Material submitted: . appendix - APPENDIX . 01 Clinical history: . Appendicitis . 02 Diagnosis: Appendix, laparoscopic appendectomy: - Fecalith. - Acute appendicitis. - Fibrofatty obliteration of distal appendiceal lumen. . (JPM:mm; 01/22/2019) [facility]/01/22/2019 . 02 Comment: There is no evidence of rupture. . (JPM:mm; 01/22/2019) . 02 Electronically signed: . Julian Medina MD, Pathologist NPI- [id number] . 01 Gross description: . The specimen is received in formalin, labeled "Rip, Alyce, appendix" and consists of a curved pink-torres appendix measuring 6.7 cm in length and ranging from 0.4-1.3 cm in diameter with mesoappendix measuring up to 1.5 cm thick. The margin is closed with stefania and inked black. The serosa is pink-torres with multifocal areas of disruption. Sectioning reveals a dilated lumen (up to 1.1 cm) containing brown fecal material and a single fecalith. Manager Inspection sections are submitted in A1-A2. (SDY; 01/21/2019) SYU/SYU . 02 Pathologist provided ICD-10: K56.41, K35.80, K38.8 . 02 CPT . 728779 Specimen Comment: A courtesy copy of this report has been sent to Specimen Comment: [phone], , . Specimen Comment: Report sent to ,DR GONZALEZ / DR COTTO Performed at: [address] [place] [address] [address], [place], [place] [id number] MD Joey Guadarrama MD Phone: [phone] Performed at: [address] [id number] MD Julian Medina MD Phone: [phone]
[2019-01-22] MEDS: ENOXAPARIN 40 MG/0.4 ML SYRINGE. SQ SCH (20:19)
[2019-01-22] MEDS ORDERED: TOPIRAMATE 100 MG TABLET. PO ONE (23:45)
[2019-01-22] MEDS ORDERED: lamoTRIgine 100 MG TABLET. PO ONE (23:45)
[2019-01-23] VITALS (8 sets, daily range): BP systolic 106–132; BP diastolic 54–74
[2019-01-23] MEDS: POTASSIUM CL 20MEQ-0.45% NACL 1,000 ML IV SCH ×3 (01:00→21:00)
[2019-01-23] MEDS: ACETAMINOPHEN 325 MG TABLET. PO PRN ×4 (02:22→21:58)
[2019-01-23] MEDS: LEVOTHYROXINE 175 MCG TABLET PO SCH (06:14)
[2019-01-23 06:18] LABS: BASO # 0.1 x10^3/uL (0.0-0.2); BASO % 1 % (0-3); EOS % 1 % (0-3); LYMPH # 2.5 x10^3/uL (1.0-4.8); LYMPH % 33 % (24-48); MEAN CORPUSCULAR HEMOGLOBIN 32 pg (25-35); MEAN CORPUSCULAR HGB CONC 34 g/dL (31-37); MEAN CORPUSCULAR VOLUME 91 fL (79-100); MONO # 0.5 x10^3/uL (0.0-1.1); MONO % 6 % (0-9); NEUT # 4.5 x10^3uL (1.8-7.7); NEUT % 60 % (31-73); PLATELET COUNT 168 x10^3/uL (140-400); RED BLOOD COUNT 2.19 x10^6/uL (3.50-5.40); WHITE BLOOD COUNT 7.5 x10^3/uL (4.0-11.0)
[2019-01-23 06:24] LABS: HEMOGLOBIN 6.9 g/dL (12.0-15.5)
--- NOTE | 2019-01-23 07:54 | PDOC ---
PROGRESS NOTES Chief Complaint Chief Complaint s/p laparoscpic appendectomy s/p revision and control of bleeding abdominal pain secondary to the above. normocytic anemia status 1 unit of prbc transfusion due to the acute blood loss. leukocytosis reactive most liekly after surgical procedure obesity with BMI of 39 Plan: hemodyanmically stable diet as per surgical attending pain management further recommendations based on clincal course. History of Present Illness History of Present Illness Patient feeling better compared to yesterday. Still having abdominal discomfort but she is passing gases. Hb dropped. Transfusion of 1u PRBC ordered. She is also constipated, would like a stool softener. 1uPRBC Miralax BID IS Vitals Vitals Vital Signs Date Time Temp Pulse Resp B/P (MAP) Pulse Ox O2 Delivery O2 Flow Rate FiO2 01/23/19 03:00 98.5 95 16 106/56 (73) 100 Room Air 98.5 Physical Exam General: Alert, Oriented X3, No acute distress Heart: Other (increased rate) Lungs: Clear Abdomen: Soft, Other (mildly TTP right side) Extremities: No clubbing Skin: No rashes, No breakdown, No significant lesion Labs LABS Laboratory Tests Test 01/23/19 06:00 White Blood Count 7.5 x10^3/uL (4.0-11.0) Red Blood Count 2.19 x10^6/uL (3.50-5.40) Hemoglobin 6.9 g/dL (12.0-15.5) Hematocrit 20.0 % (36.0-47.0) Mean Corpuscular Volume 91 fL (79-100) Mean Corpuscular Hemoglobin 32 pg (25-35) Mean Corpuscular Hemoglobin Concent 34 g/dL (31-37) Red Cell Distribution Width 16.0 % (11.5-14.5) Platelet Count 168 x10^3/uL (140-400) Neutrophils (%) (Auto) 60 % (31-73) Lymphocytes (%) (Auto) 33 % (24-48) Monocytes (%) (Auto) 6 % (0-9) Eosinophils (%) (Auto) 1 % (0-3) Basophils (%) (Auto) 1 % (0-3) Neutrophils # (Auto) 4.5 x10^3uL (1.8-7.7) Lymphocytes # (Auto) 2.5 x10^3/uL (1.0-4.8) Monocytes # (Auto) 0.5 x10^3/uL (0.0-1.1) Eosinophils # (Auto) 0.0 x10^3/uL (0.0-0.7) Basophils # (Auto) 0.1 x10^3/uL (0.0-0.2) Comment Review of Relevant I have reviewed the following items baltazar (where applicable) has been applied. Labs Laboratory Tests Test 01/21/19 10:15 01/21/19 16:30 01/21/19 16:55 01/21/19 20:02 White Blood Count 9.6 x10^3/uL (4.0-11.0) 18.0 x10^3/uL (4.0-11.0) Red Blood Count 3.82 x10^6/uL (3.50-5.40) 3.10 x10^6/uL (3.50-5.40) Hemoglobin 11.9 g/dL (12.0-15.5) 9.6 g/dL (12.0-15.5) Hematocrit 35.8 % (36.0-47.0) 29.1 % (36.0-47.0) Mean Corpuscular Volume 94 fL (79-100) 94 fL (79-100) Mean Corpuscular Hemoglobin 31 pg (25-35) 31 pg (25-35) Mean Corpuscular Hemoglobin Concent 33 g/dL (31-37) 33 g/dL (31-37) Red Cell Distribution Width 14.6 % (11.5-14.5) 14.8 % (11.5-14.5) Platelet Count 224 x10^3/uL (140-400) 300 x10^3/uL (140-400) Neutrophils (%) (Auto) 89 % (31-73) 89 % (31-73) Lymphocytes (%) (Auto) 9 % (24-48) 8 % (24-48) Monocytes (%) (Auto) 1 % (0-9) 3 % (0-9) Eosinophils (%) (Auto) 0 % (0-3) 0 % (0-3) Basophils (%) (Auto) 1 % (0-3) 0 % (0-3) Neutrophils # (Auto) 8.5 x10^3uL (1.8-7.7) 16.0 x10^3uL (1.8-7.7) Lymphocytes # (Auto) 0.9 x10^3/uL (1.0-4.8) 1.5 x10^3/uL (1.0-4.8) Monocytes # (Auto) 0.1 x10^3/uL (0.0-1.1) 0.5 x10^3/uL (0.0-1.1) Eosinophils # (Auto) 0.0 x10^3/uL (0.0-0.7) 0.0 x10^3/uL (0.0-0.7) Basophils # (Auto) 0.0 x10^3/uL (0.0-0.2) 0.0 x10^3/uL (0.0-0.2) Segmented Neutrophils % 86 % (35-66) 85 % (35-66) Band Neutrophils % 4 % (0-9) 5 % (0-9) Lymphocytes % 10 % (24-48) 9 % (24-48) Platelet Estimate Adequate (ADEQUATE) Adequate (ADEQUATE) Prothrombin Time 13.4 SEC (11.7-14.0) Prothromb Time International Ratio 1.1 (0.8-1.1) Sodium Level 137 mmol/L (136-145) 133 mmol/L (136-145) Potassium Level 4.3 mmol/L (3.5-5.1) 4.1 mmol/L (3.5-5.1) Chloride Level 103 mmol/L (98-107) 99 mmol/L (98-107) Carbon Dioxide Level 23 mmol/L (21-32) 15 mmol/L (21-32) Anion Gap 11 (6-14) 19 (6-14) Blood Urea Nitrogen 9 mg/dL (7-20) 14 mg/dL (7-20) Creatinine 0.9 mg/dL (0.6-1.0) 1.6 mg/dL (0.6-1.0) Estimated GFR (Cockcroft-Gault) 68.7 35.3 Glucose Level 169 mg/dL (70-99) 278 mg/dL (70-99) 140 mg/dL (70-99) Calcium Level 7.6 mg/dL (8.5-10.1) 7.8 mg/dL (8.5-10.1) BUN/Creatinine Ratio 9 (6-20) Magnesium Level 2.0 mg/dL (1.8-2.4) Total Bilirubin 0.2 mg/dL (0.2-1.0) Aspartate Amino Transf (AST/SGOT) 41 U/L (15-37) Alanine Aminotransferase (ALT/SGPT) 56 U/L (14-59) Alkaline Phosphatase 104 U/L (46-116) Total Protein 6.9 g/dL (6.4-8.2) Albumin 3.5 g/dL (3.4-5.0) Albumin/Globulin Ratio 1.0 (1.0-1.7) Monocytes % 1 % (0-10) Troponin I Quantitative < 0.017 ng/mL (0.000-0.055) Bedside Hematocrit 19 % (36-40) Arterial Blood pH (Temp corrected) 7.22 Arterial Blood pCO2 (Temp correct) 39 mmHg Arterial Blood pO2 (Temp corrected) 46 mmHg Bedside Venous pH 7.20 (7.32-7.42) Bedside Venous pCO2 43 mmHg (41-51) Bedside Venous pO2 53 mmHg (20-40) Bedside Venous HCO3 16 mmol/L (24-28) Bedside Venous Blood Total CO2 18 mmol/L (21-32) Bedside Venous Blood O2 Saturation 79 % Bedside Venous Blood Base Excess -12 mmol/L (0-3) POC Venous Hemoglobin (Calc) 6.5 g/dL (12-15) Bedside FiO2 100 Bedside Sodium 136 mmol/L (135-145) Bedside Potassium 3.8 mmol/L (3.5-5.0) Bedside Ionized Calcium (Dalia) 1.08 mmol/L (1.13-1.32) Test 01/21/19 20:15 01/21/19 22:00 01/21/19 22:01 01/22/19 04:40 White Blood Count 11.0 x10^3/uL (4.0-11.0) 11.1 x10^3/uL (4.0-11.0) 11.6 x10^3/uL (4.0-11.0) Red Blood Count 2.09 x10^6/uL (3.50-5.40) 2.51 x10^6/uL (3.50-5.40) 2.44 x10^6/uL (3.50-5.40) Hemoglobin 6.5 g/dL (12.0-15.5) 7.8 g/dL (12.0-15.5) 7.6 g/dL (12.0-15.5) Hematocrit 19.5 % (36.0-47.0) 23.1 % (36.0-47.0) 22.2 % (36.0-47.0) Mean Corpuscular Volume 94 fL (79-100) 92 fL (79-100) 91 fL (79-100) Mean Corpuscular Hemoglobin 31 pg (25-35) 31 pg (25-35) 31 pg (25-35) Mean Corpuscular Hemoglobin Concent 33 g/dL (31-37) 34 g/dL (31-37) 34 g/dL (31-37) Red Cell Distribution Width 15.0 % (11.5-14.5) 15.4 % (11.5-14.5) 16.0 % (11.5-14.5) Platelet Count 193 x10^3/uL (140-400) 172 x10^3/uL (140-400) 175 x10^3/uL (140-400) Neutrophils (%) (Auto) 83 % (31-73) 88 % (31-73) 79 % (31-73) Lymphocytes (%) (Auto) 10 % (24-48) 9 % (24-48) 15 % (24-48) Monocytes (%) (Auto) 7 % (0-9) 3 % (0-9) 6 % (0-9) Eosinophils (%) (Auto) 0 % (0-3) 0 % (0-3) 0 % (0-3) Basophils (%) (Auto) 0 % (0-3) 0 % (0-3) 0 % (0-3) Neutrophils # (Auto) 9.2 x10^3uL (1.8-7.7) 9.8 x10^3uL (1.8-7.7) 9.2 x10^3uL (1.8-7.7) Lymphocytes # (Auto) 1.1 x10^3/uL (1.0-4.8) 1.0 x10^3/uL (1.0-4.8) 1.7 x10^3/uL (1.0-4.8) Monocytes # (Auto) 0.8 x10^3/uL (0.0-1.1) 0.3 x10^3/uL (0.0-1.1) 0.7 x10^3/uL (0.0-1.1) Eosinophils # (Auto) 0.0 x10^3/uL (0.0-0.7) 0.0 x10^3/uL (0.0-0.7) 0.0 x10^3/uL (0.0-0.7) Basophils # (Auto) 0.0 x10^3/uL (0.0-0.2) 0.0 x10^3/uL (0.0-0.2) 0.0 x10^3/uL (0.0-0.2) Segmented Neutrophils % 73 % (35-66) Band Neutrophils % 10 % (0-9) Lymphocytes % 12 % (24-48) Monocytes % 5 % (0-10) Platelet Estimate Adequate (ADEQUATE) Giant Platelets Occ Nasal Screen MRSA (PCR) Negative (Negative) Sodium Level 137 mmol/L (136-145) 140 mmol/L (136-145) Potassium Level 4.1 mmol/L (3.5-5.1) 3.7 mmol/L (3.5-5.1) Chloride Level 102 mmol/L (98-107) 105 mmol/L (98-107) Carbon Dioxide Level 21 mmol/L (21-32) 22 mmol/L (21-32) Anion Gap 14 (6-14) 13 (6-14) Blood Urea Nitrogen 11 mg/dL (7-20) 9 mg/dL (7-20) Creatinine 1.0 mg/dL (0.6-1.0) 0.9 mg/dL (0.6-1.0) Estimated GFR (Cockcroft-Gault) 60.8 68.7 Glucose Level 133 mg/dL (70-99) 115 mg/dL (70-99) Calcium Level 7.1 mg/dL (8.5-10.1) 7.3 mg/dL (8.5-10.1) BUN/Creatinine Ratio 10 (6-20) Total Bilirubin 0.3 mg/dL (0.2-1.0) Aspartate Amino Transf (AST/SGOT) 33 U/L (15-37) Alanine Aminotransferase (ALT/SGPT) 42 U/L (14-59) Alkaline Phosphatase 76 U/L (46-116) Total Protein 6.3 g/dL (6.4-8.2) Albumin 3.8 g/dL (3.4-5.0) Albumin/Globulin Ratio 1.5 (1.0-1.7) Test 01/23/19 06:00 White Blood Count 7.5 x10^3/uL (4.0-11.0) Red Blood Count 2.19 x10^6/uL (3.50-5.40) Hemoglobin 6.9 g/dL (12.0-15.5) Hematocrit 20.0 % (36.0-47.0) Mean Corpuscular Volume 91 fL (79-100) Mean Corpuscular Hemoglobin 32 pg (25-35) Mean Corpuscular Hemoglobin Concent 34 g/dL (31-37) Red Cell Distribution Width 16.0 % (11.5-14.5) Platelet Count 168 x10^3/uL (140-400) Neutrophils (%) (Auto) 60 % (31-73) Lymphocytes (%) (Auto) 33 % (24-48) Monocytes (%) (Auto) 6 % (0-9) Eosinophils (%) (Auto) 1 % (0-3) Basophils (%) (Auto) 1 % (0-3) Neutrophils # (Auto) 4.5 x10^3uL (1.8-7.7) Lymphocytes # (Auto) 2.5 x10^3/uL (1.0-4.8) Monocytes # (Auto) 0.5 x10^3/uL (0.0-1.1) Eosinophils # (Auto) 0.0 x10^3/uL (0.0-0.7) Basophils # (Auto) 0.1 x10^3/uL (0.0-0.2) Laboratory Tests Test 01/23/19 06:00 White Blood Count 7.5 x10^3/uL (4.0-11.0) Red Blood Count 2.19 x10^6/uL (3.50-5.40) Hemoglobin 6.9 g/dL (12.0-15.5) Hematocrit 20.0 % (36.0-47.0) Mean Corpuscular Volume 91 fL (79-100) Mean Corpuscular Hemoglobin 32 pg (25-35) Mean Corpuscular Hemoglobin Concent 34 g/dL (31-37) Red Cell Distribution Width 16.0 % (11.5-14.5) Platelet Count 168 x10^3/uL (140-400) Neutrophils (%) (Auto) 60 % (31-73) Lymphocytes (%) (Auto) 33 % (24-48) Monocytes (%) (Auto) 6 % (0-9) Eosinophils (%) (Auto) 1 % (0-3) Basophils (%) (Auto) 1 % (0-3) Neutrophils # (Auto) 4.5 x10^3uL (1.8-7.7) Lymphocytes # (Auto) 2.5 x10^3/uL (1.0-4.8) Monocytes # (Auto) 0.5 x10^3/uL (0.0-1.1) Eosinophils # (Auto) 0.0 x10^3/uL (0.0-0.7) Basophils # (Auto) 0.1 x10^3/uL (0.0-0.2) Medications Current Medications Sodium Chloride 1,000 ml @ 100 mls/hr Q10H IV Last administered on 01/21/19at 01:23; Start 01/21/19 at 00:45; Stop 01/21/19 at 21:25; Status DC Fentanyl Citrate (Fentanyl 2ml Vial) 50 mcg PRN Q2HR PRN IV MODERATE PAIN Last administered on 01/21/19at 13:56; Start 01/21/19 at 00:45 Ondansetron HCl (Zofran) 4 mg PRN Q6HRS PRN IV NAUSEA/VOMITING; Start 01/21/19 at 00:45; Stop 01/21/19 at 08:54; Status DC Cefazolin Sodium 3 gm/Dextrose 100 ml @ 200 mls/hr 1X PREOP PRN IV protocol Last administered on 4/10/19at 20:50; Start 01/21/19 at 06:00; Stop 01/22/19 at 15:00; Status DC Metronidazole 100 ml @ 100 mls/hr 1X PREOP PRN IV protocol Last administered on 01/21/19at 19:18; Start 01/21/19 at 06:00; Stop 01/22/19 at 18:00; Status DC Ondansetron HCl (Zofran) 4 mg PRN Q6HRS PRN IV NAUSEA/VOMITING Last administered on 01/21/19at 15:48; Start 01/21/19 at 05:15; Stop 01/21/19 at 16:44 ; Status DC Fentanyl Citrate (Fentanyl 2ml Vial) 25 mcg PRN Q5MIN PRN IV MILD PAIN; Start 01/21/19 at 05:15; Stop 01/22/19 at 05:14; Status DC Fentanyl Citrate (Fentanyl 2ml Vial) 50 mcg PRN Q5MIN PRN IV MODERATE TO SEVERE PAIN; Start 01/21/19 at 05:15; Stop 01/22/19 at 05:14; Status DC Morphine Sulfate (Morphine Sulfate) 1 mg PRN Q10MIN PRN IV SEVERE PAIN; Start 01/21/19 at 05:15; Stop 01/22/19 at 05:14; Status DC Ringer's Solution 1,000 ml @ 30 mls/hr Q24H IV ; Start 01/21/19 at 05:15; Stop 01/21/19 at 09:41; Status DC Lidocaine HCl (Xylocaine-Mpf 1% 2ml Vial) 2 ml PRN 1X PRN ID PRIOR TO IV START ; Start 01/21/19 at 05:15; Stop 01/22/19 at 05:14; Status DC Hydromorphone HCl (Dilaudid) 0.5 mg PRN Q10MIN PRN IV SEV PAIN, Second choice; Start 01/21/19 at 05:15; Stop 01/22/19 at 05:14; Status DC Prochlorperazine Edisylate (Compazine) 5 mg PACU PRN PRN IV NAUSEA, MRX1; Start 01/21/19 at 05:15; Stop 01/22/19 at 05:14; Status DC Fentanyl Citrate (Fentanyl 2ml Vial) 100 mcg STK-MED ONCE .ROUTE ; Start at 05:26; Stop 01/21/19 at 05:27; Status DC Rocuronium [place] (Zemuron) 50 mg STK-MED ONCE .ROUTE ; Start 01/21/19 at 05:26 ; Stop 01/21/19 at 05:27; Status DC Propofol 20 ml @ As Directed STK-MED ONCE IV ; Start 01/21/19 at 05:27; Stop 08/01 at 05:28; Status DC Lidocaine HCl (Lidocaine Pf 2% Vial) 5 ml STK-MED ONCE .ROUTE ; Start 01/21/19 at 05:27; Stop 01/21/19 at 05:28; Status DC Dexamethasone Sodium Phosphate (Decadron) 20 mg STK-MED ONCE .ROUTE ; Start 08/01 at 05:27; Stop 01/21/19 at 05:28; Status DC Ondansetron HCl (Zofran) 4 mg STK-MED ONCE .ROUTE ; Start 01/21/19 at 05:27; Stop 01/21/19 at 05:28; Status DC Desflurane (Suprane) 60 ml STK-MED ONCE IH ; Start 01/21/19 at 05:28; Stop 01/21 at 05:29; Status DC Bupivacaine HCl/ Epinephrine Bitart (Sensorcain-Mpf Epi 0.5%-1:[id number]) 30 ml STK -MED ONCE .ROUTE Last administered on 01/21/19at 07:29; Start 01/21/19 at 05:30 ; Stop 01/21/19 at 06:31; Status DC Diphenhydramine HCl (Benadryl) 50 mg STK-MED ONCE .ROUTE ; Start 01/21/19 at 07: 18; Stop 01/21/19 at 07:19; Status DC Ketorolac Tromethamine (Toradol For Or Only) 30 mg STK-MED ONCE INJ ; Start 08/01 at 07:18; Stop 01/21/19 at 07:19; Status DC Glycopyrrolate (Robinul) 1 mg STK-MED ONCE .ROUTE ; Start 01/21/19 at 07:32; Stop 01/21/19 at 07:33; Status DC Neostigmine Methylsulfate (Neostigmine Methylsulfate) 5 mg STK-MED ONCE .ROUTE ; Start 01/21/19 at 07:32; Stop 01/21/19 at 07:33; Status DC Desflurane (Suprane) 60 ml STK-MED ONCE IH ; Start 01/21/19 at 07:52; Stop 01/21 at 07:53; Status DC Fentanyl Citrate (Fentanyl 2ml Vial) 100 mcg STK-MED ONCE .ROUTE ; Start at 08:38; Stop 01/21/19 at 08:39; Status DC Diphenhydramine HCl (Benadryl) 25 mg PRN Q6HRS PRN PO ITCHING; Start 01/21/19 at 09:00 Enoxaparin Sodium (Lovenox 40mg Syringe) 40 mg Q24H SQ ; Start 01/21/19 at 09:00 ; Stop 01/21/19 at 09:00; Status DC Sodium Chloride (Normal Saline Flush) 3 ml QSHIFT PRN IV AFTER MEDS AND BLOOD DRAWS; Start 01/21/19 at 09:00 Potassium Chloride/Sodium Chloride 1,000 ml @ 100 mls/hr Q10H IV Last administered on 01/21/19at 22:25; Start 01/21/19 at 09:00 Dextrose (Dextrose 50%-Water Syringe) 12.5 gm PRN Q15MIN PRN IV SEE COMMENTS; Start 01/21/19 at 09:00 Oxycodone/ Acetaminophen (Percocet 5/325) 1 tab PRN Q4HRS PRN PO MODERATE PAIN ; Start 01/21/19 at 09:00 Oxycodone/ Acetaminophen (Percocet 5/325) 2 tab PRN Q4HRS PRN PO SEVERE PAIN Last administered on 01/21/19at 10:20; Start 01/21/19 at 09:00 Hydromorphone HCl (Dilaudid) 1 mg PRN Q3HRS PRN IV SEVERE PAIN; Start 01/21/19 at 09:00 Docusate Sodium (Colace) 100 mg BID PO Last administered on 01/22/19at 20:19; Start 01/21/19 at 09:00 Ondansetron HCl (Zofran) 4 mg PRN Q6HRS PRN IV NAUESA, 1ST CHOICE; Start at 09:00 Clonazepam (KlonoPIN) 0.5 mg DAILY PO ; Start 01/21/19 at 09:00; Stop 01/21/19 at 10:39; Status DC Fluoxetine HCl (PROzac) 10 mg DAILY PO ; Start 01/21/19 at 09:00; Stop 01/21/19 at 10:38; Status DC Levothyroxine Sodium (Synthroid) 175 mcg DAILY06 PO Last administered on at 06:14; Start 01/21/19 at 09:00 Non-Formulary Medication (Estradiol (Vivelle-Dot)) 1 patch TWICE WEEKLY TP ; Start 01/21/19 at 09:00; Status UNV [place] Carbonate 300 mg QHS PO ; Start 01/21/19 at 21:00; Stop 01/21/19 at 21: 00; Status DC Propranolol HCl (Inderal) 10 mg BID PO ; Start 01/21/19 at 09:00; Stop 01/21/19 at 10:38; Status DC Quetiapine Fumarate (SEROquel) 600 mg QHS PO ; Start 01/21/19 at 21:00; Stop 08/01 at 21:00; Status DC Enoxaparin Sodium (Lovenox 40mg Syringe) 40 mg Q24H SQ ; Start 01/21/19 at 21:00 Non-Formulary Medication (Cariprazine Hydrochloride (Vraylar)) 6 mg DAILY PO Last administered on 01/22/19at 09:00; Start 01/22/19 at 09:00; Status UNV Estradiol (Estrace) 0.5 mg DAILY PO Last administered on 01/22/19at 09:00; Start 01/21/19 at 11:30 Lamotrigine (LaMICtal) 150 mg QHS PO Last administered on 01/22/19at 00:35; Start 01/21/19 at 21:00 Topiramate (Topamax) 200 mg QHS PO Last administered on 01/22/19at 00:36; Start 01/21/19 at 21:00 Fluoxetine HCl (PROzac) 20 mg DAILY PO Last administered on 01/21/19at 10:52; Start 01/21/19 at 11:30; Stop 01/21/19 at 12:22; Status DC Clonazepam (KlonoPIN) 0.5 mg BID PO Last administered on 01/21/19at 11:08; Start 01/21/19 at 11:30; Stop 01/21/19 at 13:44; Status DC Fluoxetine HCl (PROzac) 20 mg DAILY PO Last administered on 01/22/19at 09:24; Start 01/22/19 at 09:00 Clonazepam (KlonoPIN) 0.5 mg BID@1030,1330 PO Last administered on 01/22/19at 14 :20; Start 01/21/19 at 14:00 Ringer's Solution 500 ml @ 500 mls/hr 1X ONCE IV Last administered on at 17:42; Start 01/21/19 at 17:30; Stop 01/21/19 at 18:29; Status DC Ondansetron HCl (Zofran) 4 mg PRN Q6HRS PRN IV NAUSEA/VOMITING; Start 01/21/19 at 17:45; Stop 01/22/19 at 17:44; Status DC Fentanyl Citrate (Fentanyl 2ml Vial) 25 mcg PRN Q5MIN PRN IV MILD PAIN; Start 01/21/19 at 17:45; Stop 01/22/19 at 17:44; Status DC Fentanyl Citrate (Fentanyl 2ml Vial) 50 mcg PRN Q5MIN PRN IV MODERATE TO SEVERE PAIN; Start 01/21/19 at 17:45; Stop 01/22/19 at 17:44; Status DC Morphine Sulfate (Morphine Sulfate) 1 mg PRN Q10MIN PRN IV SEVERE PAIN; Start 01/21/19 at 17:45; Stop 01/22/19 at 17:44; Status DC Ringer's Solution 1,000 ml @ 30 mls/hr Q24H IV ; Start 01/21/19 at 17:37; Stop 01/21/19 at 21:25; Status DC Hydromorphone HCl (Dilaudid) 0.5 mg PRN Q10MIN PRN IV SEV PAIN, Second choice; Start 01/21/19 at 17:45; Stop 01/22/19 at 17:44; Status DC Prochlorperazine Edisylate (Compazine) 5 mg PACU PRN PRN IV NAUSEA, MRX1; Start 01/21/19 at 17:45; Stop 01/22/19 at 17:44; Status DC Propofol 20 ml @ As Directed STK-MED ONCE IV ; Start 01/21/19 at 17:41; Stop 08/01 at 17:42; Status DC Dexamethasone Sodium Phosphate (Decadron) 20 mg STK-MED ONCE .ROUTE ; Start 08/01 at 17:41; Stop 01/21/19 at 17:42; Status DC Lidocaine HCl (Lidocaine Pf 2% Vial) 5 ml STK-MED ONCE .ROUTE ; Start 01/21/19 at 17:41; Stop 01/21/19 at 17:42; Status DC Ondansetron HCl (Zofran) 4 mg STK-MED ONCE .ROUTE ; Start 01/21/19 at 17:41; Stop 01/21/19 at 17:42; Status DC Rocuronium [place] (Zemuron) 50 mg STK-MED ONCE .ROUTE ; Start 01/21/19 at 17:41 ; Stop 01/21/19 at 17:42; Status DC Fentanyl Citrate (Fentanyl 2ml Vial) 100 mcg STK-MED ONCE .ROUTE ; Start at 17:41; Stop 01/21/19 at 17:42; Status DC Succinylcholine Chloride (Anectine) 200 mg STK-MED ONCE .ROUTE ; Start 01/21/19 at 17:43; Stop 01/21/19 at 17:44; Status DC Bupivacaine HCl/ Epinephrine Bitart (Sensorcain-Mpf Epi 0.5%-1:780675) 30 ml STK -MED ONCE .ROUTE Last administered on 01/21/19at 19:35; Start 01/21/19 at 16:44 ; Stop 01/21/19 at 17:44; Status DC Bacitracin (Bacitracin) 50,000 unit STK-MED ONCE IRR ; Start 01/21/19 at 16:44; Stop 01/21/19 at 17:44; Status DC Scopolamine (Transderm-Scop) 1 patch STK-MED ONCE TD ; Start 01/21/19 at 18:57; Stop 01/21/19 at 18:58; Status DC Ketamine HCl (Ketamine) 50 mg STK-MED ONCE .ROUTE ; Start 01/21/19 at 19:01; Stop 01/21/19 at 19:02; Status DC Cellulose (Surgicel Hemostat 4x8) 1 each STK-MED ONCE .ROUTE Last administered on 01/21/19at 20:09; Start 01/21/19 at 18:48; Stop 01/21/19 at 19:48; Status DC Albumin Human 500 ml @ As Directed STK-MED ONCE IV ; Start 01/21/19 at 19:49; Stop 01/21/19 at 19:50; Status DC Albumin Human 500 ml @ As Directed STK-MED ONCE IV ; Start 01/21/19 at 19:50; Stop 01/21/19 at 19:51; Status DC Phenylephrine HCl (PHENYLEPHRINE in 0.9% NACL PF) 1 mg STK-MED ONCE IV ; Start 01/21/19 at 19:50; Stop 01/21/19 at 19:51; Status DC Glycopyrrolate (Robinul) 1 mg STK-MED ONCE .ROUTE ; Start 01/21/19 at 20:29; Stop 01/21/19 at 20:30; Status DC Neostigmine Methylsulfate (Neostigmine Methylsulfate) 5 mg STK-MED ONCE .ROUTE ; Start 01/21/19 at 20:31; Stop 01/21/19 at 20:32; Status DC Sevoflurane (Ultane) 60 ml STK-MED ONCE IH ; Start 01/21/19 at 20:48; Stop 01/21 at 20:49; Status DC Cellulose (Surgicel Hemostat 4x8) 1 each STK-MED ONCE TP Last administered on at 20:19; Start 01/21/19 at 20:19; Stop 01/21/19 at 20:57; Status DC Ringer's Solution 1,000 ml @ 100 mls/hr Q10H IV Last administered on at 22:26; Start 01/21/19 at 21:30; Stop 01/22/19 at 15:24; Status DC Acetaminophen (Tylenol) 650 mg PRN Q6HRS PRN PO MILD PAIN Last administered on 01/23/19at 02:22; Start 01/22/19 at 00:30 Ondansetron HCl (Zofran) 4 mg PRN Q6HRS PRN IV NAUSEA/VOMITING; Start 01/22/19 at 10:15; Stop 01/22/19 at 10:49; Status DC Fentanyl Citrate (Fentanyl 2ml Vial) 25 mcg PRN Q5MIN PRN IV MILD PAIN; Start 01/22/19 at 10:15; Stop 01/22/19 at 10:49; Status DC Fentanyl Citrate (Fentanyl 2ml Vial) 50 mcg PRN Q5MIN PRN IV MODERATE TO SEVERE PAIN; Start 01/22/19 at 10:15; Stop 01/22/19 at 10:49; Status DC Morphine Sulfate (Morphine Sulfate) 1 mg PRN Q10MIN PRN IV SEVERE PAIN; Start 01/22/19 at 10:15; Stop 01/22/19 at 10:49; Status DC Ringer's Solution 1,000 ml @ 30 mls/hr Q24H IV ; Start 01/22/19 at 10:07; Stop 01/22/19 at 22:06; Status DC Lidocaine HCl (Xylocaine-Mpf 1% 2ml Vial) 2 ml PRN 1X PRN ID PRIOR TO IV START ; Start 01/22/19 at 10:15; Stop 01/22/19 at 10:49; Status DC Hydromorphone HCl (Dilaudid) 0.5 mg PRN Q10MIN PRN IV SEV PAIN, Second choice; Start 01/22/19 at 10:15; Stop 01/22/19 at 10:49; Status DC Prochlorperazine Edisylate (Compazine) 5 mg PACU PRN PRN IV NAUSEA, MRX1; Start 01/22/19 at 10:15; Stop 01/22/19 at 10:49; Status DC Lamotrigine (LaMICtal) 150 mg 1X ONCE PO Last administered on 01/22/19at 23:47 ; Start 01/22/19 at 23:45; Stop 01/22/19 at 23:46; Status DC Topiramate (Topamax) 200 mg 1X ONCE PO Last administered on 01/22/19at 23:47; Start 01/22/19 at 23:45; Stop 01/22/19 at 23:46; Status DC Active Scripts Active Reported Clonidine Hcl 0.1 Mg Tablet 0.1 Mg PO BID Clonazepam 0.5 Mg Tablet 0.5 Mg PO BID Topiramate 100 Mg Tablet 200 Mg PO HS Lamictal (Lamotrigine) 150 Mg Tablet 150 Mg PO HS Vraylar (Cariprazine Hydrochloride) 6 Mg Capsule 6 Mg PO DAILY Estradiol 0.5 Mg Tablet 0.5 Mg PO DAILY Synthroid (Levothyroxine Sodium) 175 Mcg Tablet 1 Tab PO DAILY Prozac (Fluoxetine Hcl) 10 Mg Capsule 20 Mg PO DAILY Vitals/I & O Vital Sign - Last 24 Hours 01/22/19 01/22/19 01/22/19 01/22/19 08:00 08:00 09:00 10:00 Temp 98.5 98.5 Pulse 104 112 114 Resp 18 20 20 B/P (MAP) 109/57 (74) 126/61 (82) 118/84 (95) Pulse Ox 90 93 95 O2 Delivery Room Air Room Air Room Air Room Air 01/22/19 01/22/19 01/22/19 01/22/19 12:00 15:00 16:00 19:00 Temp 98.0 98.0 Pulse 113 100 Resp 20 22 B/P (MAP) 143/77 (99) 103/60 (74) Pulse Ox 95 98 O2 Delivery Room Air Room Air Room Air Room Air 01/22/19 01/22/19 01/23/19 20:00 23:00 03:00 Temp 98.3 98.5 98.3 98.5 Pulse 106 95 Resp 15 16 B/P (MAP) 108/61 (77) 106/56 (73) Pulse Ox 98 100 O2 Delivery Room Air Room Air Room Air Intake and Output 01/22/19 01/22/19 01/23/19 14:59 22:59 06:59 Intake Total 440 ml 1080 ml 3000 ml Output Total 2450 ml 3250 ml 3700 ml Balance -2010 ml -2170 ml -700 ml REBECA PETER MD Jan 23, 2019 07:54
[2019-01-23] MEDS: POLYETHYLENE GLYCOL 3350 17 GM PACKET. PO SCH ×2 (08:58→21:00)
[2019-01-23] MEDS: DOCUSATE SODIUM 100 MG CAPSULE. PO SCH ×2 (08:58→21:00)
[2019-01-23] MEDS: ESTRADIOL 1 MG TABLET. PO SCH (08:58)
[2019-01-23] MEDS: FLUoxetine HCL 20 MG CAPSULE PO SCH (08:58)
[2019-01-23] MEDS: CARIPRAZINE HYDROCHLORIDE 6 MG PO SCH (08:58)
[2019-01-23] MEDS: PSYLLIUM HUSK (SUGAR FREE) 1 PKT PACKET PO SCH (08:59)
--- NOTE | 2019-01-23 09:13 | PDOC ---
SURGICAL PROGRESS NOTE Subjective up to bedside chair, finishing breakfast a little sore when she coughs or moves around, otherwise doing well Vital Signs Vital Signs Date Time Temp Pulse Resp B/P (MAP) Pulse Ox O2 Delivery O2 Flow Rate FiO2 01/23/19 09:00 97.3 103 18 108/61 97.3 01/23/19 03:00 100 Room Air HR down I&O Intake and Output 01/23/19 07:00 Intake Total 4420 ml Output Total 9400 ml Balance -4980 ml Intake Oral 4420 ml Output Urine Total 9400 ml PATIENT HAS A DOAN: No General: Alert, Oriented X3, Cooperative, No acute distress Lungs: Normal air movement Skin: Other (warm, dry) Labs Laboratory Tests Test 01/21/19 10:15 01/21/19 16:30 01/21/19 16:55 01/21/19 20:02 White Blood Count 9.6 x10^3/uL (4.0-11.0) 18.0 x10^3/uL (4.0-11.0) Red Blood Count 3.82 x10^6/uL (3.50-5.40) 3.10 x10^6/uL (3.50-5.40) Hemoglobin 11.9 g/dL (12.0-15.5) 9.6 g/dL (12.0-15.5) Hematocrit 35.8 % (36.0-47.0) 29.1 % (36.0-47.0) Mean Corpuscular Volume 94 fL (79-100) 94 fL (79-100) Mean Corpuscular Hemoglobin 31 pg (25-35) 31 pg (25-35) Mean Corpuscular Hemoglobin Concent 33 g/dL (31-37) 33 g/dL (31-37) Red Cell Distribution Width 14.6 % (11.5-14.5) 14.8 % (11.5-14.5) Platelet Count 224 x10^3/uL (140-400) 300 x10^3/uL (140-400) Neutrophils (%) (Auto) 89 % (31-73) 89 % (31-73) Lymphocytes (%) (Auto) 9 % (24-48) 8 % (24-48) Monocytes (%) (Auto) 1 % (0-9) 3 % (0-9) Eosinophils (%) (Auto) 0 % (0-3) 0 % (0-3) Basophils (%) (Auto) 1 % (0-3) 0 % (0-3) Neutrophils # (Auto) 8.5 x10^3uL (1.8-7.7) 16.0 x10^3uL (1.8-7.7) Lymphocytes # (Auto) 0.9 x10^3/uL (1.0-4.8) 1.5 x10^3/uL (1.0-4.8) Monocytes # (Auto) 0.1 x10^3/uL (0.0-1.1) 0.5 x10^3/uL (0.0-1.1) Eosinophils # (Auto) 0.0 x10^3/uL (0.0-0.7) 0.0 x10^3/uL (0.0-0.7) Basophils # (Auto) 0.0 x10^3/uL (0.0-0.2) 0.0 x10^3/uL (0.0-0.2) Segmented Neutrophils % 86 % (35-66) 85 % (35-66) Band Neutrophils % 4 % (0-9) 5 % (0-9) Lymphocytes % 10 % (24-48) 9 % (24-48) Platelet Estimate Adequate (ADEQUATE) Adequate (ADEQUATE) Prothrombin Time 13.4 SEC (11.7-14.0) Prothromb Time International Ratio 1.1 (0.8-1.1) Sodium Level 137 mmol/L (136-145) 133 mmol/L (136-145) Potassium Level 4.3 mmol/L (3.5-5.1) 4.1 mmol/L (3.5-5.1) Chloride Level 103 mmol/L (98-107) 99 mmol/L (98-107) Carbon Dioxide Level 23 mmol/L (21-32) 15 mmol/L (21-32) Anion Gap 11 (6-14) 19 (6-14) Blood Urea Nitrogen 9 mg/dL (7-20) 14 mg/dL (7-20) Creatinine 0.9 mg/dL (0.6-1.0) 1.6 mg/dL (0.6-1.0) Estimated GFR (Cockcroft-Gault) 68.7 35.3 Glucose Level 169 mg/dL (70-99) 278 mg/dL (70-99) 140 mg/dL (70-99) Calcium Level 7.6 mg/dL (8.5-10.1) 7.8 mg/dL (8.5-10.1) BUN/Creatinine Ratio 9 (6-20) Magnesium Level 2.0 mg/dL (1.8-2.4) Total Bilirubin 0.2 mg/dL (0.2-1.0) Aspartate Amino Transf (AST/SGOT) 41 U/L (15-37) Alanine Aminotransferase (ALT/SGPT) 56 U/L (14-59) Alkaline Phosphatase 104 U/L (46-116) Total Protein 6.9 g/dL (6.4-8.2) Albumin 3.5 g/dL (3.4-5.0) Albumin/Globulin Ratio 1.0 (1.0-1.7) Monocytes % 1 % (0-10) Troponin I Quantitative < 0.017 ng/mL (0.000-0.055) Bedside Hematocrit 19 % (36-40) Arterial Blood pH (Temp corrected) 7.22 Arterial Blood pCO2 (Temp correct) 39 mmHg Arterial Blood pO2 (Temp corrected) 46 mmHg Bedside Venous pH 7.20 (7.32-7.42) Bedside Venous pCO2 43 mmHg (41-51) Bedside Venous pO2 53 mmHg (20-40) Bedside Venous HCO3 16 mmol/L (24-28) Bedside Venous Blood Total CO2 18 mmol/L (21-32) Bedside Venous Blood O2 Saturation 79 % Bedside Venous Blood Base Excess -12 mmol/L (0-3) POC Venous Hemoglobin (Calc) 6.5 g/dL (12-15) Bedside FiO2 100 Bedside Sodium 136 mmol/L (135-145) Bedside Potassium 3.8 mmol/L (3.5-5.0) Bedside Ionized Calcium (Dalia) 1.08 mmol/L (1.13-1.32) Test 01/21/19 20:15 01/21/19 22:00 01/21/19 22:01 01/22/19 04:40 White Blood Count 11.0 x10^3/uL (4.0-11.0) 11.1 x10^3/uL (4.0-11.0) 11.6 x10^3/uL (4.0-11.0) Red Blood Count 2.09 x10^6/uL (3.50-5.40) 2.51 x10^6/uL (3.50-5.40) 2.44 x10^6/uL (3.50-5.40) Hemoglobin 6.5 g/dL (12.0-15.5) 7.8 g/dL (12.0-15.5) 7.6 g/dL (12.0-15.5) Hematocrit 19.5 % (36.0-47.0) 23.1 % (36.0-47.0) 22.2 % (36.0-47.0) Mean Corpuscular Volume 94 fL (79-100) 92 fL (79-100) 91 fL (79-100) Mean Corpuscular Hemoglobin 31 pg (25-35) 31 pg (25-35) 31 pg (25-35) Mean Corpuscular Hemoglobin Concent 33 g/dL (31-37) 34 g/dL (31-37) 34 g/dL (31-37) Red Cell Distribution Width 15.0 % (11.5-14.5) 15.4 % (11.5-14.5) 16.0 % (11.5-14.5) Platelet Count 193 x10^3/uL (140-400) 172 x10^3/uL (140-400) 175 x10^3/uL (140-400) Neutrophils (%) (Auto) 83 % (31-73) 88 % (31-73) 79 % (31-73) Lymphocytes (%) (Auto) 10 % (24-48) 9 % (24-48) 15 % (24-48) Monocytes (%) (Auto) 7 % (0-9) 3 % (0-9) 6 % (0-9) Eosinophils (%) (Auto) 0 % (0-3) 0 % (0-3) 0 % (0-3) Basophils (%) (Auto) 0 % (0-3) 0 % (0-3) 0 % (0-3) Neutrophils # (Auto) 9.2 x10^3uL (1.8-7.7) 9.8 x10^3uL (1.8-7.7) 9.2 x10^3uL (1.8-7.7) Lymphocytes # (Auto) 1.1 x10^3/uL (1.0-4.8) 1.0 x10^3/uL (1.0-4.8) 1.7 x10^3/uL (1.0-4.8) Monocytes # (Auto) 0.8 x10^3/uL (0.0-1.1) 0.3 x10^3/uL (0.0-1.1) 0.7 x10^3/uL (0.0-1.1) Eosinophils # (Auto) 0.0 x10^3/uL (0.0-0.7) 0.0 x10^3/uL (0.0-0.7) 0.0 x10^3/uL (0.0-0.7) Basophils # (Auto) 0.0 x10^3/uL (0.0-0.2) 0.0 x10^3/uL (0.0-0.2) 0.0 x10^3/uL (0.0-0.2) Segmented Neutrophils % 73 % (35-66) Band Neutrophils % 10 % (0-9) Lymphocytes % 12 % (24-48) Monocytes % 5 % (0-10) Platelet Estimate Adequate (ADEQUATE) Giant Platelets Occ Nasal Screen MRSA (PCR) Negative (Negative) Sodium Level 137 mmol/L (136-145) 140 mmol/L (136-145) Potassium Level 4.1 mmol/L (3.5-5.1) 3.7 mmol/L (3.5-5.1) Chloride Level 102 mmol/L (98-107) 105 mmol/L (98-107) Carbon Dioxide Level 21 mmol/L (21-32) 22 mmol/L (21-32) Anion Gap 14 (6-14) 13 (6-14) Blood Urea Nitrogen 11 mg/dL (7-20) 9 mg/dL (7-20) Creatinine 1.0 mg/dL (0.6-1.0) 0.9 mg/dL (0.6-1.0) Estimated GFR (Cockcroft-Gault) 60.8 68.7 Glucose Level 133 mg/dL (70-99) 115 mg/dL (70-99) Calcium Level 7.1 mg/dL (8.5-10.1) 7.3 mg/dL (8.5-10.1) BUN/Creatinine Ratio 10 (6-20) Total Bilirubin 0.3 mg/dL (0.2-1.0) Aspartate Amino Transf (AST/SGOT) 33 U/L (15-37) Alanine Aminotransferase (ALT/SGPT) 42 U/L (14-59) Alkaline Phosphatase 76 U/L (46-116) Total Protein 6.3 g/dL (6.4-8.2) Albumin 3.8 g/dL (3.4-5.0) Albumin/Globulin Ratio 1.5 (1.0-1.7) Test 01/23/19 06:00 White Blood Count 7.5 x10^3/uL (4.0-11.0) Red Blood Count 2.19 x10^6/uL (3.50-5.40) Hemoglobin 6.9 g/dL (12.0-15.5) Hematocrit 20.0 % (36.0-47.0) Mean Corpuscular Volume 91 fL (79-100) Mean Corpuscular Hemoglobin 32 pg (25-35) Mean Corpuscular Hemoglobin Concent 34 g/dL (31-37) Red Cell Distribution Width 16.0 % (11.5-14.5) Platelet Count 168 x10^3/uL (140-400) Neutrophils (%) (Auto) 60 % (31-73) Lymphocytes (%) (Auto) 33 % (24-48) Monocytes (%) (Auto) 6 % (0-9) Eosinophils (%) (Auto) 1 % (0-3) Basophils (%) (Auto) 1 % (0-3) Neutrophils # (Auto) 4.5 x10^3uL (1.8-7.7) Lymphocytes # (Auto) 2.5 x10^3/uL (1.0-4.8) Monocytes # (Auto) 0.5 x10^3/uL (0.0-1.1) Eosinophils # (Auto) 0.0 x10^3/uL (0.0-0.7) Basophils # (Auto) 0.1 x10^3/uL (0.0-0.2) Laboratory Tests Test 01/23/19 06:00 White Blood Count 7.5 x10^3/uL (4.0-11.0) Red Blood Count 2.19 x10^6/uL (3.50-5.40) Hemoglobin 6.9 g/dL (12.0-15.5) Hematocrit 20.0 % (36.0-47.0) Mean Corpuscular Volume 91 fL (79-100) Mean Corpuscular Hemoglobin 32 pg (25-35) Mean Corpuscular Hemoglobin Concent 34 g/dL (31-37) Red Cell Distribution Width 16.0 % (11.5-14.5) Platelet Count 168 x10^3/uL (140-400) Neutrophils (%) (Auto) 60 % (31-73) Lymphocytes (%) (Auto) 33 % (24-48) Monocytes (%) (Auto) 6 % (0-9) Eosinophils (%) (Auto) 1 % (0-3) Basophils (%) (Auto) 1 % (0-3) Neutrophils # (Auto) 4.5 x10^3uL (1.8-7.7) Lymphocytes # (Auto) 2.5 x10^3/uL (1.0-4.8) Monocytes # (Auto) 0.5 x10^3/uL (0.0-1.1) Eosinophils # (Auto) 0.0 x10^3/uL (0.0-0.7) Basophils # (Auto) 0.1 x10^3/uL (0.0-0.2) Hb noted Problem List POD 2 l/s appy, exploration acute blood loss anemia acute appendicitis obesity one unit of PRBCs today follow labs SONALI KILGORE MD Jan 23, 2019 09:13
[2019-01-23] MEDS: clonazePAM 0.5 MG TABLET PO SCH ×2 (10:27→13:04)
[2019-01-23 13:14] LABS: BASO % 1 % (0-3); EOS # 0.1 x10^3/uL (0.0-0.7); EOS % 1 % (0-3); HEMATOCRIT 24.2 % (36.0-47.0); HEMOGLOBIN 8.2 g/dL (12.0-15.5); LYMPH # 2.4 x10^3/uL (1.0-4.8); LYMPH % 31 % (24-48); MEAN CORPUSCULAR HEMOGLOBIN 31 pg (25-35); MEAN CORPUSCULAR HGB CONC 34 g/dL (31-37); MEAN CORPUSCULAR VOLUME 90 fL (79-100); MONO # 0.5 x10^3/uL (0.0-1.1); MONO % 7 % (0-9); NEUT # 4.8 x10^3uL (1.8-7.7); NEUT % 61 % (31-73); PLATELET COUNT 184 x10^3/uL (140-400); RED CELL DISTRIBUTION WIDTH 16.9 % (11.5-14.5); WHITE BLOOD COUNT 7.8 x10^3/uL (4.0-11.0)
--- NOTE | 2019-01-23 17:00 | NUR ---
Pt transferred to room 658. Received report from CARMEN Son. All belongings left with patient at time of transfer. Pt transferred via wheelchair by [employer].
[2019-01-23] MEDS: ENOXAPARIN 40 MG/0.4 ML SYRINGE. SQ SCH (21:00)
[2019-01-23] MEDS: lamoTRIgine 100 MG TABLET. PO SCH (21:57)
[2019-01-23] MEDS: TOPIRAMATE 100 MG TABLET. PO SCH (21:58)
[2019-01-24] VITALS: BP 122/75
[2019-01-24 03:00] VITALS: BP 115/68
[2019-01-24] MEDS: ACETAMINOPHEN 325 MG TABLET. PO PRN (04:10)
[2019-01-24 05:43] LABS: BASO % 1 % (0-3); EOS # 0.1 x10^3/uL (0.0-0.7); EOS % 1 % (0-3); HEMOGLOBIN 8.2 g/dL (12.0-15.5); LYMPH # 2.3 x10^3/uL (1.0-4.8); LYMPH % 32 % (24-48); MEAN CORPUSCULAR HEMOGLOBIN 31 pg (25-35); MEAN CORPUSCULAR HGB CONC 34 g/dL (31-37); MEAN CORPUSCULAR VOLUME 90 fL (79-100); MONO # 0.5 x10^3/uL (0.0-1.1); MONO % 8 % (0-9); NEUT # 4.2 x10^3uL (1.8-7.7); NEUT % 59 % (31-73); PLATELET COUNT 195 x10^3/uL (140-400); RED BLOOD COUNT 2.65 x10^6/uL (3.50-5.40); RED CELL DISTRIBUTION WIDTH 16.7 % (11.5-14.5); WHITE BLOOD COUNT 7.1 x10^3/uL (4.0-11.0)
[2019-01-24 05:54] LABS: CALCIUM 8.4 mg/dL (8.5-10.1); CREATININE 0.8 mg/dL (0.6-1.0); GFR 78.7; POTASSIUM 3.5 mmol/L (3.5-5.1)
[2019-01-24] MEDS: LEVOTHYROXINE 175 MCG TABLET PO SCH (06:23)
[2019-01-24] MEDS: POTASSIUM CL 20MEQ-0.45% NACL 1,000 ML IV SCH (06:23)
[2019-01-24 07:30] VITALS: BP 132/75
--- NOTE | 2019-01-24 08:58 | PDOC ---
PROGRESS NOTES Chief Complaint Chief Complaint impression s/p laparoscopic appendectomy s/p revision and control of bleeding abdominal pain secondary to the above. normocytic anemia status 1 unit of prbc transfusion due to the acute blood loss. acute blood loss anemia leukocytosis reactive most likely after surgical procedure obesity with BMI of 39 Plan: home today diet as per surgical attending pain management History of Present Illness History of Present Illness Patient feeling better compared to yesterday. Still having abdominal discomfort but she is passing gases. Hb dropped. Transfusion of 1u PRBC ordered. She is also constipated, would like a stool softener. 1uPRBC Miralax BID IS Vitals Vitals Vital Signs Date Time Temp Pulse Resp B/P (MAP) Pulse Ox O2 Delivery O2 Flow Rate FiO2 01/24/19 07:30 97.9 88 18 132/75 (94) 97 Room Air 97.9 01/23/19 17:53 2.0 Physical Exam General: Alert, Oriented X3, Cooperative, No acute distress Heart: Regular rate, Normal S1, Normal S2, Other (increased rate) Lungs: Clear Abdomen: Soft, Other (mildly TTP right side) Extremities: No clubbing, No edema, Normal pulses Skin: No significant lesion, Other (warm, dry) Labs LABS Laboratory Tests Test 01/23/19 12:50 01/24/19 04:18 White Blood Count 7.8 x10^3/uL (4.0-11.0) 7.1 x10^3/uL (4.0-11.0) Red Blood Count 2.70 x10^6/uL (3.50-5.40) 2.65 x10^6/uL (3.50-5.40) Hemoglobin 8.2 g/dL (12.0-15.5) 8.2 g/dL (12.0-15.5) Hematocrit 24.2 % (36.0-47.0) 24.0 % (36.0-47.0) Mean Corpuscular Volume 90 fL (79-100) 90 fL (79-100) Mean Corpuscular Hemoglobin 31 pg (25-35) 31 pg (25-35) Mean Corpuscular Hemoglobin Concent 34 g/dL (31-37) 34 g/dL (31-37) Red Cell Distribution Width 16.9 % (11.5-14.5) 16.7 % (11.5-14.5) Platelet Count 184 x10^3/uL (140-400) 195 x10^3/uL (140-400) Neutrophils (%) (Auto) 61 % (31-73) 59 % (31-73) Lymphocytes (%) (Auto) 31 % (24-48) 32 % (24-48) Monocytes (%) (Auto) 7 % (0-9) 8 % (0-9) Eosinophils (%) (Auto) 1 % (0-3) 1 % (0-3) Basophils (%) (Auto) 1 % (0-3) 1 % (0-3) Neutrophils # (Auto) 4.8 x10^3uL (1.8-7.7) 4.2 x10^3uL (1.8-7.7) Lymphocytes # (Auto) 2.4 x10^3/uL (1.0-4.8) 2.3 x10^3/uL (1.0-4.8) Monocytes # (Auto) 0.5 x10^3/uL (0.0-1.1) 0.5 x10^3/uL (0.0-1.1) Eosinophils # (Auto) 0.1 x10^3/uL (0.0-0.7) 0.1 x10^3/uL (0.0-0.7) Basophils # (Auto) 0.0 x10^3/uL (0.0-0.2) 0.0 x10^3/uL (0.0-0.2) Sodium Level 141 mmol/L (136-145) Potassium Level 3.5 mmol/L (3.5-5.1) Chloride Level 105 mmol/L (98-107) Carbon Dioxide Level 25 mmol/L (21-32) Anion Gap 11 (6-14) Blood Urea Nitrogen 7 mg/dL (7-20) Creatinine 0.8 mg/dL (0.6-1.0) Estimated GFR (Cockcroft-Gault) 78.7 Glucose Level 99 mg/dL (70-99) Calcium Level 8.4 mg/dL (8.5-10.1) Comment Review of Relevant I have reviewed the following items baltazar (where applicable) has been applied. Labs Laboratory Tests Test 01/23/19 06:00 01/23/19 12:50 01/24/19 04:18 White Blood Count 7.5 x10^3/uL (4.0-11.0) 7.8 x10^3/uL (4.0-11.0) 7.1 x10^3/uL (4.0-11.0) Red Blood Count 2.19 x10^6/uL (3.50-5.40) 2.70 x10^6/uL (3.50-5.40) 2.65 x10^6/uL (3.50-5.40) Hemoglobin 6.9 g/dL (12.0-15.5) 8.2 g/dL (12.0-15.5) 8.2 g/dL (12.0-15.5) Hematocrit 20.0 % (36.0-47.0) 24.2 % (36.0-47.0) 24.0 % (36.0-47.0) Mean Corpuscular Volume 91 fL (79-100) 90 fL (79-100) 90 fL (79-100) Mean Corpuscular Hemoglobin 32 pg (25-35) 31 pg (25-35) 31 pg (25-35) Mean Corpuscular Hemoglobin Concent 34 g/dL (31-37) 34 g/dL (31-37) 34 g/dL (31-37) Red Cell Distribution Width 16.0 % (11.5-14.5) 16.9 % (11.5-14.5) 16.7 % (11.5-14.5) Platelet Count 168 x10^3/uL (140-400) 184 x10^3/uL (140-400) 195 x10^3/uL (140-400) Neutrophils (%) (Auto) 60 % (31-73) 61 % (31-73) 59 % (31-73) Lymphocytes (%) (Auto) 33 % (24-48) 31 % (24-48) 32 % (24-48) Monocytes (%) (Auto) 6 % (0-9) 7 % (0-9) 8 % (0-9) Eosinophils (%) (Auto) 1 % (0-3) 1 % (0-3) 1 % (0-3) Basophils (%) (Auto) 1 % (0-3) 1 % (0-3) 1 % (0-3) Neutrophils # (Auto) 4.5 x10^3uL (1.8-7.7) 4.8 x10^3uL (1.8-7.7) 4.2 x10^3uL (1.8-7.7) Lymphocytes # (Auto) 2.5 x10^3/uL (1.0-4.8) 2.4 x10^3/uL (1.0-4.8) 2.3 x10^3/uL (1.0-4.8) Monocytes # (Auto) 0.5 x10^3/uL (0.0-1.1) 0.5 x10^3/uL (0.0-1.1) 0.5 x10^3/uL (0.0-1.1) Eosinophils # (Auto) 0.0 x10^3/uL (0.0-0.7) 0.1 x10^3/uL (0.0-0.7) 0.1 x10^3/uL (0.0-0.7) Basophils # (Auto) 0.1 x10^3/uL (0.0-0.2) 0.0 x10^3/uL (0.0-0.2) 0.0 x10^3/uL (0.0-0.2) Sodium Level 141 mmol/L (136-145) Potassium Level 3.5 mmol/L (3.5-5.1) Chloride Level 105 mmol/L (98-107) Carbon Dioxide Level 25 mmol/L (21-32) Anion Gap 11 (6-14) Blood Urea Nitrogen 7 mg/dL (7-20) Creatinine 0.8 mg/dL (0.6-1.0) Estimated GFR (Cockcroft-Gault) 78.7 Glucose Level 99 mg/dL (70-99) Calcium Level 8.4 mg/dL (8.5-10.1) Laboratory Tests Test 01/23/19 12:50 01/24/19 04:18 White Blood Count 7.8 x10^3/uL (4.0-11.0) 7.1 x10^3/uL (4.0-11.0) Red Blood Count 2.70 x10^6/uL (3.50-5.40) 2.65 x10^6/uL (3.50-5.40) Hemoglobin 8.2 g/dL (12.0-15.5) 8.2 g/dL (12.0-15.5) Hematocrit 24.2 % (36.0-47.0) 24.0 % (36.0-47.0) Mean Corpuscular Volume 90 fL (79-100) 90 fL (79-100) Mean Corpuscular Hemoglobin 31 pg (25-35) 31 pg (25-35) Mean Corpuscular Hemoglobin Concent 34 g/dL (31-37) 34 g/dL (31-37) Red Cell Distribution Width 16.9 % (11.5-14.5) 16.7 % (11.5-14.5) Platelet Count 184 x10^3/uL (140-400) 195 x10^3/uL (140-400) Neutrophils (%) (Auto) 61 % (31-73) 59 % (31-73) Lymphocytes (%) (Auto) 31 % (24-48) 32 % (24-48) Monocytes (%) (Auto) 7 % (0-9) 8 % (0-9) Eosinophils (%) (Auto) 1 % (0-3) 1 % (0-3) Basophils (%) (Auto) 1 % (0-3) 1 % (0-3) Neutrophils # (Auto) 4.8 x10^3uL (1.8-7.7) 4.2 x10^3uL (1.8-7.7) Lymphocytes # (Auto) 2.4 x10^3/uL (1.0-4.8) 2.3 x10^3/uL (1.0-4.8) Monocytes # (Auto) 0.5 x10^3/uL (0.0-1.1) 0.5 x10^3/uL (0.0-1.1) Eosinophils # (Auto) 0.1 x10^3/uL (0.0-0.7) 0.1 x10^3/uL (0.0-0.7) Basophils # (Auto) 0.0 x10^3/uL (0.0-0.2) 0.0 x10^3/uL (0.0-0.2) Sodium Level 141 mmol/L (136-145) Potassium Level 3.5 mmol/L (3.5-5.1) Chloride Level 105 mmol/L (98-107) Carbon Dioxide Level 25 mmol/L (21-32) Anion Gap 11 (6-14) Blood Urea Nitrogen 7 mg/dL (7-20) Creatinine 0.8 mg/dL (0.6-1.0) Estimated GFR (Cockcroft-Gault) 78.7 Glucose Level 99 mg/dL (70-99) Calcium Level 8.4 mg/dL (8.5-10.1) Medications Current Medications Sodium Chloride 1,000 ml @ 100 mls/hr Q10H IV Last administered on 01/21/19at 01:23; Start 01/21/19 at 00:45; Stop 01/21/19 at 21:25; Status DC Fentanyl Citrate (Fentanyl 2ml Vial) 50 mcg PRN Q2HR PRN IV MODERATE PAIN Last administered on 01/21/19at 13:56; Start 01/21/19 at 00:45 Ondansetron HCl (Zofran) 4 mg PRN Q6HRS PRN IV NAUSEA/VOMITING; Start 01/21/19 at 00:45; Stop 01/21/19 at 08:54; Status DC Cefazolin Sodium 3 gm/Dextrose 100 ml @ 200 mls/hr 1X PREOP PRN IV protocol Last administered on 01/21/19at 20:50; Start 01/21/19 at 06:00; Stop 01/22/19 at 15:00; Status DC Metronidazole 100 ml @ 100 mls/hr 1X PREOP PRN IV protocol Last administered on 01/21/19at 19:18; Start 01/21/19 at 06:00; Stop 01/22/19 at 18:00; Status DC Ondansetron HCl (Zofran) 4 mg PRN Q6HRS PRN IV NAUSEA/VOMITING Last administered on 01/21/19at 15:48; Start 01/21/19 at 05:15; Stop 01/21/19 at 16:44 ; Status DC Fentanyl Citrate (Fentanyl 2ml Vial) 25 mcg PRN Q5MIN PRN IV MILD PAIN; Start 01/21/19 at 05:15; Stop 01/22/19 at 05:14; Status DC Fentanyl Citrate (Fentanyl 2ml Vial) 50 mcg PRN Q5MIN PRN IV MODERATE TO SEVERE PAIN; Start 01/21/19 at 05:15; Stop 01/22/19 at 05:14; Status DC Morphine Sulfate (Morphine Sulfate) 1 mg PRN Q10MIN PRN IV SEVERE PAIN; Start 01/21/19 at 05:15; Stop 01/22/19 at 05:14; Status DC Ringer's Solution 1,000 ml @ 30 mls/hr Q24H IV ; Start 01/21/19 at 05:15; Stop 01/21/19 at 09:41; Status DC Lidocaine HCl (Xylocaine-Mpf 1% 2ml Vial) 2 ml PRN 1X PRN ID PRIOR TO IV START ; Start 01/21/19 at 05:15; Stop 01/22/19 at 05:14; Status DC Hydromorphone HCl (Dilaudid) 0.5 mg PRN Q10MIN PRN IV SEV PAIN, Second choice; Start 01/21/19 at 05:15; Stop 01/22/19 at 05:14; Status DC Prochlorperazine Edisylate (Compazine) 5 mg PACU PRN PRN IV NAUSEA, MRX1; Start 01/21/19 at 05:15; Stop 01/22/19 at 05:14; Status DC Fentanyl Citrate (Fentanyl 2ml Vial) 100 mcg STK-MED ONCE .ROUTE ; Start at 05:26; Stop 01/21/19 at 05:27; Status DC Rocuronium [place] (Zemuron) 50 mg STK-MED ONCE .ROUTE ; Start 01/21/19 at 05:26 ; Stop 01/21/19 at 05:27; Status DC Propofol 20 ml @ As Directed STK-MED ONCE IV ; Start 01/21/19 at 05:27; Stop 08/01 at 05:28; Status DC Lidocaine HCl (Lidocaine Pf 2% Vial) 5 ml STK-MED ONCE .ROUTE ; Start 01/21/19 at 05:27; Stop 01/21/19 at 05:28; Status DC Dexamethasone Sodium Phosphate (Decadron) 20 mg STK-MED ONCE .ROUTE ; Start 08/01 at 05:27; Stop 01/21/19 at 05:28; Status DC Ondansetron HCl (Zofran) 4 mg STK-MED ONCE .ROUTE ; Start 01/21/19 at 05:27; Stop 01/21/19 at 05:28; Status DC Desflurane (Suprane) 60 ml STK-MED ONCE IH ; Start 01/21/19 at 05:28; Stop 01/21 at 05:29; Status DC Bupivacaine HCl/ Epinephrine Bitart (Sensorcain-Mpf Epi 0.5%-1:053057) 30 ml STK -MED ONCE .ROUTE Last administered on 01/21/19at 07:29; Start 01/21/19 at 05:30 ; Stop 01/21/19 at 06:31; Status DC Diphenhydramine HCl (Benadryl) 50 mg STK-MED ONCE .ROUTE ; Start 01/21/19 at 07: 18; Stop 01/21/19 at 07:19; Status DC Ketorolac Tromethamine (Toradol For Or Only) 30 mg STK-MED ONCE INJ ; Start 08/01 at 07:18; Stop 01/21/19 at 07:19; Status DC Glycopyrrolate (Robinul) 1 mg STK-MED ONCE .ROUTE ; Start 01/21/19 at 07:32; Stop 01/21/19 at 07:33; Status DC Neostigmine Methylsulfate (Neostigmine Methylsulfate) 5 mg STK-MED ONCE .ROUTE ; Start 01/21/19 at 07:32; Stop 01/21/19 at 07:33; Status DC Desflurane (Suprane) 60 ml STK-MED ONCE IH ; Start 01/21/19 at 07:52; Stop 01/21 at 07:53; Status DC Fentanyl Citrate (Fentanyl 2ml Vial) 100 mcg STK-MED ONCE .ROUTE ; Start at 08:38; Stop 01/21/19 at 08:39; Status DC Diphenhydramine HCl (Benadryl) 25 mg PRN Q6HRS PRN PO ITCHING; Start 01/21/19 at 09:00 Enoxaparin Sodium (Lovenox 40mg Syringe) 40 mg Q24H SQ ; Start 01/21/19 at 09:00 ; Stop 01/21/19 at 09:00; Status DC Sodium Chloride (Normal Saline Flush) 3 ml QSHIFT PRN IV AFTER MEDS AND BLOOD DRAWS; Start 01/21/19 at 09:00 Potassium Chloride/Sodium Chloride 1,000 ml @ 100 mls/hr Q10H IV Last administered on 01/21/19at 22:25; Start 01/21/19 at 09:00 Dextrose (Dextrose 50%-Water Syringe) 12.5 gm PRN Q15MIN PRN IV SEE COMMENTS; Start 01/21/19 at 09:00 Oxycodone/ Acetaminophen (Percocet 5/325) 1 tab PRN Q4HRS PRN PO MODERATE PAIN ; Start 01/21/19 at 09:00 Oxycodone/ Acetaminophen (Percocet 5/325) 2 tab PRN Q4HRS PRN PO SEVERE PAIN Last administered on 01/21/19at 10:20; Start 01/21/19 at 09:00 Hydromorphone HCl (Dilaudid) 1 mg PRN Q3HRS PRN IV SEVERE PAIN; Start 01/21/19 at 09:00 Docusate Sodium (Colace) 100 mg BID PO Last administered on 01/23/19at 08:58; Start 01/21/19 at 09:00 Ondansetron HCl (Zofran) 4 mg PRN Q6HRS PRN IV NAUESA, 1ST CHOICE; Start at 09:00 Clonazepam (KlonoPIN) 0.5 mg DAILY PO ; Start 01/21/19 at 09:00; Stop 01/21/19 at 10:39; Status DC Fluoxetine HCl (PROzac) 10 mg DAILY PO ; Start 01/21/19 at 09:00; Stop 01/21/19 at 10:38; Status DC Levothyroxine Sodium (Synthroid) 175 mcg DAILY06 PO Last administered on at 06:23; Start 01/21/19 at 09:00 Non-Formulary Medication (Estradiol (Vivelle-Dot)) 1 patch TWICE WEEKLY TP ; Start 01/21/19 at 09:00; Status UNV [place] Carbonate 300 mg QHS PO ; Start 01/21/19 at 21:00; Stop 01/21/19 at 21: 00; Status DC Propranolol HCl (Inderal) 10 mg BID PO ; Start 01/21/19 at 09:00; Stop 01/21/19 at 10:38; Status DC Quetiapine Fumarate (SEROquel) 600 mg QHS PO ; Start 01/21/19 at 21:00; Stop 08/01 at 21:00; Status DC Enoxaparin Sodium (Lovenox 40mg Syringe) 40 mg Q24H SQ ; Start 01/21/19 at 21:00 Non-Formulary Medication (Cariprazine Hydrochloride (Vraylar)) 6 mg DAILY PO Last administered on 01/23/19 08:58; Start 01/22/19 at 09:00; Status UNV Estradiol (Estrace) 0.5 mg DAILY PO Last administered on 01/23/19 08:58; Start 01/21/19 at 11:30 Lamotrigine (LaMICtal) 150 mg QHS PO Last administered on 01/23/19 21:57; Start 01/21/19 at 21:00 Topiramate (Topamax) 200 mg QHS PO Last administered on 01/23/19 21:58; Start 01/21/19 at 21:00 Fluoxetine HCl (PROzac) 20 mg DAILY PO Last administered on 01/21/19 10:52; Start 01/21/19 at 11:30; Stop 01/21/19 at 12:22; Status DC Clonazepam (KlonoPIN) 0.5 mg BID PO Last administered on 01/21/19 11:08; Start 01/21/19 at 11:30; Stop 01/21/19 at 13:44; Status DC Fluoxetine HCl (PROzac) 20 mg DAILY PO Last administered on 01/23/19 08:58; Start 01/22/19 at 09:00 Clonazepam (KlonoPIN) 0.5 mg BID@1030,1330 PO Last administered on 01/23/19 13 :04; Start 01/21/19 at 14:00 Ringer's Solution 500 ml @ 500 mls/hr 1X ONCE IV Last administered on at 17:42; Start 01/21/19 at 17:30; Stop 01/21/19 at 18:29; Status DC Ondansetron HCl (Zofran) 4 mg PRN Q6HRS PRN IV NAUSEA/VOMITING; Start 01/21/19 at 17:45; Stop 01/22/19 at 17:44; Status DC Fentanyl Citrate (Fentanyl 2ml Vial) 25 mcg PRN Q5MIN PRN IV MILD PAIN; Start 01/21/19 at 17:45; Stop 01/22/19 at 17:44; Status DC Fentanyl Citrate (Fentanyl 2ml Vial) 50 mcg PRN Q5MIN PRN IV MODERATE TO SEVERE PAIN; Start 01/21/19 at 17:45; Stop 01/22/19 at 17:44; Status DC Morphine Sulfate (Morphine Sulfate) 1 mg PRN Q10MIN PRN IV SEVERE PAIN; Start 01/21/19 at 17:45; Stop 01/22/19 at 17:44; Status DC Ringer's Solution 1,000 ml @ 30 mls/hr Q24H IV ; Start 01/21/19 at 17:37; Stop 01/21/19 at 21:25; Status DC Hydromorphone HCl (Dilaudid) 0.5 mg PRN Q10MIN PRN IV SEV PAIN, Second choice; Start 01/21/19 at 17:45; Stop 01/22/19 at 17:44; Status DC Prochlorperazine Edisylate (Compazine) 5 mg PACU PRN PRN IV NAUSEA, MRX1; Start 01/21/19 at 17:45; Stop 01/22/19 at 17:44; Status DC Propofol 20 ml @ As Directed STK-MED ONCE IV ; Start 01/21/19 at 17:41; Stop 08/01 at 17:42; Status DC Dexamethasone Sodium Phosphate (Decadron) 20 mg STK-MED ONCE .ROUTE ; Start 08/01 at 17:41; Stop 01/21/19 at 17:42; Status DC Lidocaine HCl (Lidocaine Pf 2% Vial) 5 ml STK-MED ONCE .ROUTE ; Start 01/21/19 at 17:41; Stop 01/21/19 at 17:42; Status DC Ondansetron HCl (Zofran) 4 mg STK-MED ONCE .ROUTE ; Start 01/21/19 at 17:41; Stop 01/21/19 at 17:42; Status DC Rocuronium [place] (Zemuron) 50 mg STK-MED ONCE .ROUTE ; Start 01/21/19 at 17:41 ; Stop 01/21/19 at 17:42; Status DC Fentanyl Citrate (Fentanyl 2ml Vial) 100 mcg STK-MED ONCE .ROUTE ; Start at 17:41; Stop 01/21/19 at 17:42; Status DC Succinylcholine Chloride (Anectine) 200 mg STK-MED ONCE .ROUTE ; Start 01/21/19 at 17:43; Stop 01/21/19 at 17:44; Status DC Bupivacaine HCl/ Epinephrine Bitart (Sensorcain-Mpf Epi 0.5%-1:413720) 30 ml STK -MED ONCE .ROUTE Last administered on 01/21/19at 19:35; Start 01/21/19 at 16:44 ; Stop 01/21/19 at 17:44; Status DC Bacitracin (Bacitracin) 50,000 unit STK-MED ONCE IRR ; Start 01/21/19 at 16:44; Stop 01/21/19 at 17:44; Status DC Scopolamine (Transderm-Scop) 1 patch STK-MED ONCE TD ; Start 01/21/19 at 18:57; Stop 01/21/19 at 18:58; Status DC Ketamine HCl (Ketamine) 50 mg STK-MED ONCE .ROUTE ; Start 01/21/19 at 19:01; Stop 01/21/19 at 19:02; Status DC Cellulose (Surgicel Hemostat 4x8) 1 each STK-MED ONCE .ROUTE Last administered on 01/21/19at 20:09; Start 01/21/19 at 18:48; Stop 01/21/19 at 19:48; Status DC Albumin Human 500 ml @ As Directed STK-MED ONCE IV ; Start 01/21/19 at 19:49; Stop 01/21/19 at 19:50; Status DC Albumin Human 500 ml @ As Directed STK-MED ONCE IV ; Start 01/21/19 at 19:50; Stop 01/21/19 at 19:51; Status DC Phenylephrine HCl (PHENYLEPHRINE in 0.9% NACL PF) 1 mg STK-MED ONCE IV ; Start 01/21/19 at 19:50; Stop 01/21/19 at 19:51; Status DC Glycopyrrolate (Robinul) 1 mg STK-MED ONCE .ROUTE ; Start 01/21/19 at 20:29; Stop 01/21/19 at 20:30; Status DC Neostigmine Methylsulfate (Neostigmine Methylsulfate) 5 mg STK-MED ONCE .ROUTE ; Start 01/21/19 at 20:31; Stop 01/21/19 at 20:32; Status DC Sevoflurane (Ultane) 60 ml STK-MED ONCE IH ; Start 01/21/19 at 20:48; Stop 01/21 at 20:49; Status DC Cellulose (Surgicel Hemostat 4x8) 1 each STK-MED ONCE TP Last administered on at 20:19; Start 01/21/19 at 20:19; Stop 01/21/19 at 20:57; Status DC Ringer's Solution 1,000 ml @ 100 mls/hr Q10H IV Last administered on at 22:26; Start 01/21/19 at 21:30; Stop 01/22/19 at 15:24; Status DC Acetaminophen (Tylenol) 650 mg PRN Q6HRS PRN PO MILD PAIN Last administered on 01/24/19at 04:10; Start 01/22/19 at 00:30 Ondansetron HCl (Zofran) 4 mg PRN Q6HRS PRN IV NAUSEA/VOMITING; Start 01/22/19 at 10:15; Stop 01/22/19 at 10:49; Status DC Fentanyl Citrate (Fentanyl 2ml Vial) 25 mcg PRN Q5MIN PRN IV MILD PAIN; Start 01/22/19 at 10:15; Stop 01/22/19 at 10:49; Status DC Fentanyl Citrate (Fentanyl 2ml Vial) 50 mcg PRN Q5MIN PRN IV MODERATE TO SEVERE PAIN; Start 01/22/19 at 10:15; Stop 01/22/19 at 10:49; Status DC Morphine Sulfate (Morphine Sulfate) 1 mg PRN Q10MIN PRN IV SEVERE PAIN; Start 01/22/19 at 10:15; Stop 01/22/19 at 10:49; Status DC Ringer's Solution 1,000 ml @ 30 mls/hr Q24H IV ; Start 01/22/19 at 10:07; Stop 01/22/19 at 22:06; Status DC Lidocaine HCl (Xylocaine-Mpf 1% 2ml Vial) 2 ml PRN 1X PRN ID PRIOR TO IV START ; Start 01/22/19 at 10:15; Stop 01/22/19 at 10:49; Status DC Hydromorphone HCl (Dilaudid) 0.5 mg PRN Q10MIN PRN IV SEV PAIN, Second choice; Start 01/22/19 at 10:15; Stop 01/22/19 at 10:49; Status DC Prochlorperazine Edisylate (Compazine) 5 mg PACU PRN PRN IV NAUSEA, MRX1; Start 01/22/19 at 10:15; Stop 01/22/19 at 10:49; Status DC Lamotrigine (LaMICtal) 150 mg 1X ONCE PO Last administered on 01/22/19at 23:47 ; Start 01/22/19 at 23:45; Stop 01/22/19 at 23:46; Status DC Topiramate (Topamax) 200 mg 1X ONCE PO Last administered on 01/22/19at 23:47; Start 01/22/19 at 23:45; Stop 01/22/19 at 23:46; Status DC Polyethylene Glycol (miraLAX PACKET) 17 gm BID PO Last administered on at 08:58; Start 01/23/19 at 09:00 Psyllium Hydrophilic Mucilloid (Metamucil Fiber Packet) 1 pkt DAILY PO Last administered on 01/23/19at 08:59; Start 01/23/19 at 09:00 Active Scripts Active Reported Clonidine Hcl 0.1 Mg Tablet 0.1 Mg PO BID Clonazepam 0.5 Mg Tablet 0.5 Mg PO BID Topiramate 100 Mg Tablet 200 Mg PO HS Lamictal (Lamotrigine) 150 Mg Tablet 150 Mg PO HS Vraylar (Cariprazine Hydrochloride) 6 Mg Capsule 6 Mg PO DAILY Estradiol 0.5 Mg Tablet 0.5 Mg PO DAILY Synthroid (Levothyroxine Sodium) 175 Mcg Tablet 1 Tab PO DAILY Prozac (Fluoxetine Hcl) 10 Mg Capsule 20 Mg PO DAILY Vitals/I & O Vital Sign - Last 24 Hours 01/23/19 01/23/19 01/23/19 01/23/19 09:00 09:00 10:30 11:00 Temp 97.3 97.4 97.3 97.4 Pulse 103 100 104 102 Resp 18 20 20 B/P (MAP) 108/61 108/61 (77) 122/62 Pulse Ox 100 O2 Delivery Room Air 01/23/19 01/23/19 01/23/19 01/23/19 12:00 17:53 17:55 19:00 Temp 97.8 98.1 97.8 98.1 Pulse 102 107 109 Resp 20 20 20 B/P (MAP) 122/62 (82) 126/72 (90) 132/74 (93) Pulse Ox 100 96 99 O2 Delivery Room Air Room Air Room Air Room Air O2 Flow Rate 2.0 01/23/19 01/23/19 01/24/19 01/24/19 20:11 20:20 00:00 03:00 Temp 98.6 98.4 98.6 98.4 Pulse 104 100 Resp 18 17 B/P (MAP) 122/75 (91) 115/68 (84) Pulse Ox 96 97 94 O2 Delivery Room Air Room Air Room Air Room Air 01/24/19 07:30 Temp 97.9 97.9 Pulse 88 Resp 18 B/P (MAP) 132/75 (94) Pulse Ox 97 O2 Delivery Room Air Intake and Output 01/23/19 01/23/19 01/24/19 14:59 22:59 06:59 Intake Total 1461 ml 500 ml Output Total 602 ml Balance 859 ml 500 ml ANDREIA JARVIS MD Jan 24, 2019 08:58
[2019-01-24] MEDS: ESTRADIOL 1 MG TABLET. PO SCH (09:00)
[2019-01-24] MEDS: FLUoxetine HCL 20 MG CAPSULE PO SCH (09:00)
[2019-01-24] MEDS: POLYETHYLENE GLYCOL 3350 17 GM PACKET. PO SCH (09:00)
[2019-01-24] MEDS: DOCUSATE SODIUM 100 MG CAPSULE. PO SCH (09:00)
[2019-01-24] MEDS: CARIPRAZINE HYDROCHLORIDE 6 MG PO SCH (09:00)
[2019-01-24] MEDS: PSYLLIUM HUSK (SUGAR FREE) 1 PKT PACKET PO SCH (09:00)
[2019-01-24] MEDS: clonazePAM 0.5 MG TABLET PO SCH (09:05)
--- NOTE | 2019-01-24 09:26 | PDOC3 ---
Discharge Summary Date of Admission: Jan 21, 2019 Date of Discharge: Jan 24, 2019 Follow-Up: 3-5 days Admitting Diagnosis comment: discharge dx Chief Complaint impression s/p laparoscopic appendectomy s/p revision and control of bleeding abdominal pain secondary to the above. normocytic anemia status 1 unit of prbc transfusion due to the acute blood loss. acute blood loss anemia leukocytosis reactive most likely after surgical procedure obesity with BMI of 39 remote smoker Plan: home today diet as per surgical attending pain management History of Present Illness History of Present Illness Patient feeling better compared to yesterday. Still having abdominal discomfort but she is passing gases. Hb dropped. Transfusion of 1u PRBC given . 1uPRBC Miralax BID IS Vitals Vitals Vital Signs Date Time Temp Pulse Resp B/P (MAP) Pulse Ox O2 Delivery O2 Flow Rate FiO2 01/24/19 07:30 97.9 88 18 132/75 (94) 97 Room Air 97.9 01/23/19 17:53 2.0 Physical Exam General: Alert, Oriented X3, Cooperative, No acute distress Heart: Regular rate, Normal S1, Normal S2, Other (increased rate) Lungs: Clear Abdomen: Soft, Other (mildly TTP right side) Extremities: No clubbing, No edema, Normal pulses Skin: No significant lesion, Other (warm, dry) Brief Hospital Course Ms. Erwin is a 43 old [sex] who presented with [ acute appendicitis] CONDITION AT DISCHARGE: Improved Discharge Medications Current Medications Sodium Chloride 1,000 ml @ 100 mls/hr Q10H IV Last administered on 01/21/19at 01:23; Start 01/21/19 at 00:45; Stop 01/21/19 at 21:25; Status DC Fentanyl Citrate (Fentanyl 2ml Vial) 50 mcg PRN Q2HR PRN IV MODERATE PAIN Last administered on 01/21/19at 13:56; Start 01/21/19 at 00:45 Ondansetron HCl (Zofran) 4 mg PRN Q6HRS PRN IV NAUSEA/VOMITING; Start 01/21/19 at 00:45; Stop 01/21/19 at 08:54; Status DC Cefazolin Sodium 3 gm/Dextrose 100 ml @ 200 mls/hr 1X PREOP PRN IV protocol Last administered on 01/21/19at 20:50; Start 01/21/19 at 06:00; Stop 01/22/19 at 15:00; Status DC Metronidazole 100 ml @ 100 mls/hr 1X PREOP PRN IV protocol Last administered on 01/21/19at 19:18; Start 01/21/19 at 06:00; Stop 01/22/19 at 18:00; Status DC Ondansetron HCl (Zofran) 4 mg PRN Q6HRS PRN IV NAUSEA/VOMITING Last administered on 01/21/19at 15:48; Start 01/21/19 at 05:15; Stop 01/21/19 at 16:44 ; Status DC Fentanyl Citrate (Fentanyl 2ml Vial) 25 mcg PRN Q5MIN PRN IV MILD PAIN; Start 01/21/19 at 05:15; Stop 01/22/19 at 05:14; Status DC Fentanyl Citrate (Fentanyl 2ml Vial) 50 mcg PRN Q5MIN PRN IV MODERATE TO SEVERE PAIN; Start 01/21/19 at 05:15; Stop 01/22/19 at 05:14; Status DC Morphine Sulfate (Morphine Sulfate) 1 mg PRN Q10MIN PRN IV SEVERE PAIN; Start 01/21/19 at 05:15; Stop 01/22/19 at 05:14; Status DC Ringer's Solution 1,000 ml @ 30 mls/hr Q24H IV ; Start 01/21/19 at 05:15; Stop 01/21/19 at 09:41; Status DC Lidocaine HCl (Xylocaine-Mpf 1% 2ml Vial) 2 ml PRN 1X PRN ID PRIOR TO IV START ; Start 01/21/19 at 05:15; Stop 01/22/19 at 05:14; Status DC Hydromorphone HCl (Dilaudid) 0.5 mg PRN Q10MIN PRN IV SEV PAIN, Second choice; Start 01/21/19 at 05:15; Stop 01/22/19 at 05:14; Status DC Prochlorperazine Edisylate (Compazine) 5 mg PACU PRN PRN IV NAUSEA, MRX1; Start 01/21/19 at 05:15; Stop 01/22/19 at 05:14; Status DC Fentanyl Citrate (Fentanyl 2ml Vial) 100 mcg STK-MED ONCE .ROUTE ; Start at 05:26; Stop 01/21/19 at 05:27; Status DC Rocuronium [place] (Zemuron) 50 mg STK-MED ONCE .ROUTE ; Start 01/21/19 at 05:26 ; Stop 01/21/19 at 05:27; Status DC Propofol 20 ml @ As Directed STK-MED ONCE IV ; Start 01/21/19 at 05:27; Stop 08/01 at 05:28; Status DC Lidocaine HCl (Lidocaine Pf 2% Vial) 5 ml STK-MED ONCE .ROUTE ; Start 01/21/19 at 05:27; Stop 01/21/19 at 05:28; Status DC Dexamethasone Sodium Phosphate (Decadron) 20 mg STK-MED ONCE .ROUTE ; Start 08/01 at 05:27; Stop 01/21/19 at 05:28; Status DC Ondansetron HCl (Zofran) 4 mg STK-MED ONCE .ROUTE ; Start 01/21/19 at 05:27; Stop 01/21/19 at 05:28; Status DC Desflurane (Suprane) 60 ml STK-MED ONCE IH ; Start 01/21/19 at 05:28; Stop 01/21 at 05:29; Status DC Bupivacaine HCl/ Epinephrine Bitart (Sensorcain-Mpf Epi 0.5%-1:149234) 30 ml STK -MED ONCE .ROUTE Last administered on 01/21/19at 07:29; Start 01/21/19 at 05:30 ; Stop 01/21/19 at 06:31; Status DC Diphenhydramine HCl (Benadryl) 50 mg STK-MED ONCE .ROUTE ; Start 01/21/19 at 07: 18; Stop 01/21/19 at 07:19; Status DC Ketorolac Tromethamine (Toradol For Or Only) 30 mg STK-MED ONCE INJ ; Start 08/01 at 07:18; Stop 01/21/19 at 07:19; Status DC Glycopyrrolate (Robinul) 1 mg STK-MED ONCE .ROUTE ; Start 01/21/19 at 07:32; Stop 01/21/19 at 07:33; Status DC Neostigmine Methylsulfate (Neostigmine Methylsulfate) 5 mg STK-MED ONCE .ROUTE ; Start 01/21/19 at 07:32; Stop 01/21/19 at 07:33; Status DC Desflurane (Suprane) 60 ml STK-MED ONCE IH ; Start 01/21/19 at 07:52; Stop 01/21 at 07:53; Status DC Fentanyl Citrate (Fentanyl 2ml Vial) 100 mcg STK-MED ONCE .ROUTE ; Start at 08:38; Stop 01/21/19 at 08:39; Status DC Diphenhydramine HCl (Benadryl) 25 mg PRN Q6HRS PRN PO ITCHING; Start 01/21/19 at 09:00 Enoxaparin Sodium (Lovenox 40mg Syringe) 40 mg Q24H SQ ; Start 01/21/19 at 09:00 ; Stop 01/21/19 at 09:00; Status DC Sodium Chloride (Normal Saline Flush) 3 ml QSHIFT PRN IV AFTER MEDS AND BLOOD DRAWS; Start 01/21/19 at 09:00 Potassium Chloride/Sodium Chloride 1,000 ml @ 100 mls/hr Q10H IV Last administered on 01/21/19at 22:25; Start 01/21/19 at 09:00 Dextrose (Dextrose 50%-Water Syringe) 12.5 gm PRN Q15MIN PRN IV SEE COMMENTS; Start 01/21/19 at 09:00 Oxycodone/ Acetaminophen (Percocet 5/325) 1 tab PRN Q4HRS PRN PO MODERATE PAIN ; Start 01/21/19 at 09:00 Oxycodone/ Acetaminophen (Percocet 5/325) 2 tab PRN Q4HRS PRN PO SEVERE PAIN Last administered on 01/21/19at 10:20; Start 01/21/19 at 09:00 Hydromorphone HCl (Dilaudid) 1 mg PRN Q3HRS PRN IV SEVERE PAIN; Start 01/21/19 at 09:00 Docusate Sodium (Colace) 100 mg BID PO Last administered on 01/23/19at 08:58; Start 01/21/19 at 09:00 Ondansetron HCl (Zofran) 4 mg PRN Q6HRS PRN IV NAUESA, 1ST CHOICE; Start at 09:00 Clonazepam (KlonoPIN) 0.5 mg DAILY PO ; Start 01/21/19 at 09:00; Stop 01/21/19 at 10:39; Status DC Fluoxetine HCl (PROzac) 10 mg DAILY PO ; Start 01/21/19 at 09:00; Stop 01/21/19 at 10:38; Status DC Levothyroxine Sodium (Synthroid) 175 mcg DAILY06 PO Last administered on at 06:23; Start 01/21/19 at 09:00 Non-Formulary Medication (Estradiol (Vivelle-Dot)) 1 patch TWICE WEEKLY TP ; Start 01/21/19 at 09:00; Status UNV [place] Carbonate 300 mg QHS PO ; Start 01/21/19 at 21:00; Stop 01/21/19 at 21: 00; Status DC Propranolol HCl (Inderal) 10 mg BID PO ; Start 01/21/19 at 09:00; Stop 01/21/19 at 10:38; Status DC Quetiapine Fumarate (SEROquel) 600 mg QHS PO ; Start 01/21/19 at 21:00; Stop 08/01 at 21:00; Status DC Enoxaparin Sodium (Lovenox 40mg Syringe) 40 mg Q24H SQ ; Start 01/21/19 at 21:00 Non-Formulary Medication (Cariprazine Hydrochloride (Vraylar)) 6 mg DAILY PO Last administered on 01/23/19at 08:58; Start 01/22/19 at 09:00; Status UNV Estradiol (Estrace) 0.5 mg DAILY PO Last administered on 01/24/19at 09:00; Start 01/21/19 at 11:30 Lamotrigine (LaMICtal) 150 mg QHS PO Last administered on 01/23/19at 21:57; Start 01/21/19 at 21:00 Topiramate (Topamax) 200 mg QHS PO Last administered on 01/23/19at 21:58; Start 01/21/19 at 21:00 Fluoxetine HCl (PROzac) 20 mg DAILY PO Last administered on 01/21/19at 10:52; Start 01/21/19 at 11:30; Stop 01/21/19 at 12:22; Status DC Clonazepam (KlonoPIN) 0.5 mg BID PO Last administered on 01/21/19at 11:08; Start 01/21/19 at 11:30; Stop 01/21/19 at 13:44; Status DC Fluoxetine HCl (PROzac) 20 mg DAILY PO Last administered on 01/24/19at 09:00; Start 01/22/19 at 09:00 Clonazepam (KlonoPIN) 0.5 mg BID@1030,1330 PO Last administered on 01/24/19at 09 :05; Start 01/21/19 at 14:00 Ringer's Solution 500 ml @ 500 mls/hr 1X ONCE IV Last administered on at 17:42; Start 01/21/19 at 17:30; Stop 01/21/19 at 18:29; Status DC Ondansetron HCl (Zofran) 4 mg PRN Q6HRS PRN IV NAUSEA/VOMITING; Start 01/21/19 at 17:45; Stop 01/22/19 at 17:44; Status DC Fentanyl Citrate (Fentanyl 2ml Vial) 25 mcg PRN Q5MIN PRN IV MILD PAIN; Start 01/21/19 at 17:45; Stop 01/22/19 at 17:44; Status DC Fentanyl Citrate (Fentanyl 2ml Vial) 50 mcg PRN Q5MIN PRN IV MODERATE TO SEVERE PAIN; Start 01/21/19 at 17:45; Stop 01/22/19 at 17:44; Status DC Morphine Sulfate (Morphine Sulfate) 1 mg PRN Q10MIN PRN IV SEVERE PAIN; Start 01/21/19 at 17:45; Stop 01/22/19 at 17:44; Status DC Ringer's Solution 1,000 ml @ 30 mls/hr Q24H IV ; Start 01/21/19 at 17:37; Stop 01/21/19 at 21:25; Status DC Hydromorphone HCl (Dilaudid) 0.5 mg PRN Q10MIN PRN IV SEV PAIN, Second choice; Start 01/21/19 at 17:45; Stop 01/22/19 at 17:44; Status DC Prochlorperazine Edisylate (Compazine) 5 mg PACU PRN PRN IV NAUSEA, MRX1; Start 01/21/19 at 17:45; Stop 01/22/19 at 17:44; Status DC Propofol 20 ml @ As Directed STK-MED ONCE IV ; Start 01/21/19 at 17:41; Stop 08/01 at 17:42; Status DC Dexamethasone Sodium Phosphate (Decadron) 20 mg STK-MED ONCE .ROUTE ; Start 08/01 at 17:41; Stop 01/21/19 at 17:42; Status DC Lidocaine HCl (Lidocaine Pf 2% Vial) 5 ml STK-MED ONCE .ROUTE ; Start 01/21/19 at 17:41; Stop 01/21/19 at 17:42; Status DC Ondansetron HCl (Zofran) 4 mg STK-MED ONCE .ROUTE ; Start 01/21/19 at 17:41; Stop 01/21/19 at 17:42; Status DC Rocuronium [place] (Zemuron) 50 mg STK-MED ONCE .ROUTE ; Start 01/21/19 at 17:41 ; Stop 01/21/19 at 17:42; Status DC Fentanyl Citrate (Fentanyl 2ml Vial) 100 mcg STK-MED ONCE .ROUTE ; Start at 17:41; Stop 01/21/19 at 17:42; Status DC Succinylcholine Chloride (Anectine) 200 mg STK-MED ONCE .ROUTE ; Start 01/21/19 at 17:43; Stop 01/21/19 at 17:44; Status DC Bupivacaine HCl/ Epinephrine Bitart (Sensorcain-Mpf Epi 0.5%-1:957181) 30 ml STK -MED ONCE .ROUTE Last administered on 01/21/19at 19:35; Start 01/21/19 at 16:44 ; Stop 01/21/19 at 17:44; Status DC Bacitracin (Bacitracin) 50,000 unit STK-MED ONCE IRR ; Start 01/21/19 at 16:44; Stop 01/21/19 at 17:44; Status DC Scopolamine (Transderm-Scop) 1 patch STK-MED ONCE TD ; Start 01/21/19 at 18:57; Stop 01/21/19 at 18:58; Status DC Ketamine HCl (Ketamine) 50 mg STK-MED ONCE .ROUTE ; Start 01/21/19 at 19:01; Stop 01/21/19 at 19:02; Status DC Cellulose (Surgicel Hemostat 4x8) 1 each STK-MED ONCE .ROUTE Last administered on 01/21/19at 20:09; Start 01/21/19 at 18:48; Stop 01/21/19 at 19:48; Status DC Albumin Human 500 ml @ As Directed STK-MED ONCE IV ; Start 01/21/19 at 19:49; Stop 01/21/19 at 19:50; Status DC Albumin Human 500 ml @ As Directed STK-MED ONCE IV ; Start 01/21/19 at 19:50; Stop 01/21/19 at 19:51; Status DC Phenylephrine HCl (PHENYLEPHRINE in 0.9% NACL PF) 1 mg STK-MED ONCE IV ; Start 01/21/19 at 19:50; Stop 01/21/19 at 19:51; Status DC Glycopyrrolate (Robinul) 1 mg STK-MED ONCE .ROUTE ; Start 01/21/19 at 20:29; Stop 01/21/19 at 20:30; Status DC Neostigmine Methylsulfate (Neostigmine Methylsulfate) 5 mg STK-MED ONCE .ROUTE ; Start 01/21/19 at 20:31; Stop 01/21/19 at 20:32; Status DC Sevoflurane (Ultane) 60 ml STK-MED ONCE IH ; Start 01/21/19 at 20:48; Stop 01/21 at 20:49; Status DC Cellulose (Surgicel Hemostat 4x8) 1 each STK-MED ONCE TP Last administered on at 20:19; Start 01/21/19 at 20:19; Stop 01/21/19 at 20:57; Status DC Ringer's Solution 1,000 ml @ 100 mls/hr Q10H IV Last administered on at 22:26; Start 01/21/19 at 21:30; Stop 01/22/19 at 15:24; Status DC Acetaminophen (Tylenol) 650 mg PRN Q6HRS PRN PO MILD PAIN Last administered on 01/24/19at 04:10; Start 01/22/19 at 00:30 Ondansetron HCl (Zofran) 4 mg PRN Q6HRS PRN IV NAUSEA/VOMITING; Start 01/22/19 at 10:15; Stop 01/22/19 at 10:49; Status DC Fentanyl Citrate (Fentanyl 2ml Vial) 25 mcg PRN Q5MIN PRN IV MILD PAIN; Start 01/22/19 at 10:15; Stop 01/22/19 at 10:49; Status DC Fentanyl Citrate (Fentanyl 2ml Vial) 50 mcg PRN Q5MIN PRN IV MODERATE TO SEVERE PAIN; Start 01/22/19 at 10:15; Stop 01/22/19 at 10:49; Status DC Morphine Sulfate (Morphine Sulfate) 1 mg PRN Q10MIN PRN IV SEVERE PAIN; Start 01/22/19 at 10:15; Stop 01/22/19 at 10:49; Status DC Ringer's Solution 1,000 ml @ 30 mls/hr Q24H IV ; Start 01/22/19 at 10:07; Stop 01/22/19 at 22:06; Status DC Lidocaine HCl (Xylocaine-Mpf 1% 2ml Vial) 2 ml PRN 1X PRN ID PRIOR TO IV START ; Start 01/22/19 at 10:15; Stop 01/22/19 at 10:49; Status DC Hydromorphone HCl (Dilaudid) 0.5 mg PRN Q10MIN PRN IV SEV PAIN, Second choice; Start 01/22/19 at 10:15; Stop 01/22/19 at 10:49; Status DC Prochlorperazine Edisylate (Compazine) 5 mg PACU PRN PRN IV NAUSEA, MRX1; Start 01/22/19 at 10:15; Stop 01/22/19 at 10:49; Status DC Lamotrigine (LaMICtal) 150 mg 1X ONCE PO Last administered on 01/22/19at 23:47 ; Start 01/22/19 at 23:45; Stop 01/22/19 at 23:46; Status DC Topiramate (Topamax) 200 mg 1X ONCE PO Last administered on 01/22/19at 23:47; Start 01/22/19 at 23:45; Stop 01/22/19 at 23:46; Status DC Polyethylene Glycol (miraLAX PACKET) 17 gm BID PO Last administered on at 08:58; Start 01/23/19 at 09:00 Psyllium Hydrophilic Mucilloid (Metamucil Fiber Packet) 1 pkt DAILY PO Last administered on 01/23/19at 08:59; Start 01/23/19 at 09:00 Active Scripts Active Reported Clonidine Hcl 0.1 Mg Tablet 0.1 Mg PO BID Clonazepam 0.5 Mg Tablet 0.5 Mg PO BID Topiramate 100 Mg Tablet 200 Mg PO HS Lamictal (Lamotrigine) 150 Mg Tablet 150 Mg PO HS Vraylar (Cariprazine Hydrochloride) 6 Mg Capsule 6 Mg PO DAILY Estradiol 0.5 Mg Tablet 0.5 Mg PO DAILY Synthroid (Levothyroxine Sodium) 175 Mcg Tablet 1 Tab PO DAILY Prozac (Fluoxetine Hcl) 10 Mg Capsule 20 Mg PO DAILY Vital Signs Vital Signs Date Time Temp Pulse Resp B/P (MAP) Pulse Ox O2 Delivery O2 Flow Rate FiO2 01/24/19 07:30 97.9 88 18 132/75 (94) 97 Room Air 97.9 01/23/19 17:53 2.0 Labs Laboratory Tests Test 01/23/19 06:00 01/23/19 12:50 01/24/19 04:18 White Blood Count 7.5 x10^3/uL (4.0-11.0) 7.8 x10^3/uL (4.0-11.0) 7.1 x10^3/uL (4.0-11.0) Red Blood Count 2.19 x10^6/uL (3.50-5.40) 2.70 x10^6/uL (3.50-5.40) 2.65 x10^6/uL (3.50-5.40) Hemoglobin 6.9 g/dL (12.0-15.5) 8.2 g/dL (12.0-15.5) 8.2 g/dL (12.0-15.5) Hematocrit 20.0 % (36.0-47.0) 24.2 % (36.0-47.0) 24.0 % (36.0-47.0) Mean Corpuscular Volume 91 fL (79-100) 90 fL (79-100) 90 fL (79-100) Mean Corpuscular Hemoglobin 32 pg (25-35) 31 pg (25-35) 31 pg (25-35) Mean Corpuscular Hemoglobin Concent 34 g/dL (31-37) 34 g/dL (31-37) 34 g/dL (31-37) Red Cell Distribution Width 16.0 % (11.5-14.5) 16.9 % (11.5-14.5) 16.7 % (11.5-14.5) Platelet Count 168 x10^3/uL (140-400) 184 x10^3/uL (140-400) 195 x10^3/uL (140-400) Neutrophils (%) (Auto) 60 % (31-73) 61 % (31-73) 59 % (31-73) Lymphocytes (%) (Auto) 33 % (24-48) 31 % (24-48) 32 % (24-48) Monocytes (%) (Auto) 6 % (0-9) 7 % (0-9) 8 % (0-9) Eosinophils (%) (Auto) 1 % (0-3) 1 % (0-3) 1 % (0-3) Basophils (%) (Auto) 1 % (0-3) 1 % (0-3) 1 % (0-3) Neutrophils # (Auto) 4.5 x10^3uL (1.8-7.7) 4.8 x10^3uL (1.8-7.7) 4.2 x10^3uL (1.8-7.7) Lymphocytes # (Auto) 2.5 x10^3/uL (1.0-4.8) 2.4 x10^3/uL (1.0-4.8) 2.3 x10^3/uL (1.0-4.8) Monocytes # (Auto) 0.5 x10^3/uL (0.0-1.1) 0.5 x10^3/uL (0.0-1.1) 0.5 x10^3/uL (0.0-1.1) Eosinophils # (Auto) 0.0 x10^3/uL (0.0-0.7) 0.1 x10^3/uL (0.0-0.7) 0.1 x10^3/uL (0.0-0.7) Basophils # (Auto) 0.1 x10^3/uL (0.0-0.2) 0.0 x10^3/uL (0.0-0.2) 0.0 x10^3/uL (0.0-0.2) Sodium Level 141 mmol/L (136-145) Potassium Level 3.5 mmol/L (3.5-5.1) Chloride Level 105 mmol/L (98-107) Carbon Dioxide Level 25 mmol/L (21-32) Anion Gap 11 (6-14) Blood Urea Nitrogen 7 mg/dL (7-20) Creatinine 0.8 mg/dL (0.6-1.0) Estimated GFR (Cockcroft-Gault) 78.7 Glucose Level 99 mg/dL (70-99) Calcium Level 8.4 mg/dL (8.5-10.1) Laboratory Tests Test 01/23/19 12:50 01/24/19 04:18 White Blood Count 7.8 x10^3/uL (4.0-11.0) 7.1 x10^3/uL (4.0-11.0) Red Blood Count 2.70 x10^6/uL (3.50-5.40) 2.65 x10^6/uL (3.50-5.40) Hemoglobin 8.2 g/dL (12.0-15.5) 8.2 g/dL (12.0-15.5) Hematocrit 24.2 % (36.0-47.0) 24.0 % (36.0-47.0) Mean Corpuscular Volume 90 fL (79-100) 90 fL (79-100) Mean Corpuscular Hemoglobin 31 pg (25-35) 31 pg (25-35) Mean Corpuscular Hemoglobin Concent 34 g/dL (31-37) 34 g/dL (31-37) Red Cell Distribution Width 16.9 % (11.5-14.5) 16.7 % (11.5-14.5) Platelet Count 184 x10^3/uL (140-400) 195 x10^3/uL (140-400) Neutrophils (%) (Auto) 61 % (31-73) 59 % (31-73) Lymphocytes (%) (Auto) 31 % (24-48) 32 % (24-48) Monocytes (%) (Auto) 7 % (0-9) 8 % (0-9) Eosinophils (%) (Auto) 1 % (0-3) 1 % (0-3) Basophils (%) (Auto) 1 % (0-3) 1 % (0-3) Neutrophils # (Auto) 4.8 x10^3uL (1.8-7.7) 4.2 x10^3uL (1.8-7.7) Lymphocytes # (Auto) 2.4 x10^3/uL (1.0-4.8) 2.3 x10^3/uL (1.0-4.8) Monocytes # (Auto) 0.5 x10^3/uL (0.0-1.1) 0.5 x10^3/uL (0.0-1.1) Eosinophils # (Auto) 0.1 x10^3/uL (0.0-0.7) 0.1 x10^3/uL (0.0-0.7) Basophils # (Auto) 0.0 x10^3/uL (0.0-0.2) 0.0 x10^3/uL (0.0-0.2) Sodium Level 141 mmol/L (136-145) Potassium Level 3.5 mmol/L (3.5-5.1) Chloride Level 105 mmol/L (98-107) Carbon Dioxide Level 25 mmol/L (21-32) Anion Gap 11 (6-14) Blood Urea Nitrogen 7 mg/dL (7-20) Creatinine 0.8 mg/dL (0.6-1.0) Estimated GFR (Cockcroft-Gault) 78.7 Glucose Level 99 mg/dL (70-99) Calcium Level 8.4 mg/dL (8.5-10.1) Allergies Allergies Coded Allergies Type Severity Reaction Last Updated Verified No Known Medication Allergies Allergy Unknown 01/21/19 Yes Disposition/Orders: D/C to Home Patient Instructions d/c planning 34 min ANDREIA JARVIS MD Jan 24, 2019 09:26
[2019-01-24] MEDS ORDERED: POLY17PO28 PO (09:29)
[2019-01-24] MEDS ORDERED: OXYC1TAB15 PO (09:29)
[2019-01-24] MEDS ORDERED: DOCU-109 PO (09:29)
--- NOTE | 2019-01-24 09:31 | DISCH ---
DISCHARGE INSTRUCTIONS Condition on Discharge Condition on Discharge: Stable Activity After Discharge Activity Instructions for Disc: Activity as tolerated Bathing Instructions: Shower-keep dressing dry Lifting Instructions after Dis: No heavy lifting, No pulling or pushing, Do not lift >10 pounds Exercise Instruction after Dis: Walk 10 min, 3 x per day, Progress as tolerated Driving Instructions after Dis: Do not drive, Do not drive today Weight Bearing Status after Di: As tolerated Diet after Discharge Diet after Discharge: Regular Diet Texture: Regular Wound Incision Care Wound/Incision Care: Ice to area for comfort, May get incision wet Checks after Discharge Checks after discharge: Check blood press - daily Contacting the DRPuma after DC Call your doctor for: If your condition worsens Treatment/Equipment after DC Adaptive Equipment Issued: None ANDREIA JARVIS MD Jan 24, 2019 09:31
[2019-01-24 11:39] VITALS: BP 137/75
[2019-01-24] MEDS: oxyCODONE/APAP 5/325 1 TAB TABLET PO PRN (12:12)
--- NOTE | 2019-01-24 12:15 | NUR ---
Pt discharged to home with mother. Reviewed discharge teaching and instructions with pt and mom. After hospital discharge, pt wishes to only take Tylenol or ibuprofen for pain. Prescriptions left for pain meds were put in the shredder patients request. Pt and mother verbalized understanding of discharge instructions.
== END 2019-01-24 12:15 | disposition home or self-care (01) | DRG 341 ==
LOC: 5 NORTH 01-21 00:25 → 2 NORTH 01-21 16:31 → 1 WEST ICU 01-21 20:50 → 6 SOUTH 01-23 17:51
PROVIDERS: ADMIT Internal Medicine; ATTEND Internal Medicine
PROC: 0WCG4ZZ Extirpation of Matter from Peritoneal Cavity, Percutaneous Endoscopic Approach (ICD-10-PCS; 2019-01-21)
PROC: 30233N1 Transfusion of Nonautologous Red Blood Cells into Peripheral Vein, Percutaneous Approach (ICD-10-PCS; 2019-01-21)
PROC: 02HV33Z Insertion of Infusion Device into Superior Vena Cava, Percutaneous Approach (ICD-10-PCS; 2019-01-21)
PROC: 0W3P8ZZ Control Bleeding in Gastrointestinal Tract, Via Natural or Artificial Opening Endoscopic (ICD-10-PCS; 2019-01-21)
PROC: 0DTJ4ZZ Resection of Appendix, Percutaneous Endoscopic Approach (ICD-10-PCS; principal; 2019-01-21 06:30)
DX: K35.80 Unspecified acute appendicitis (principal); K66.1 Hemoperitoneum; D62 Acute posthemorrhagic anemia; K91.840 Postprocedural hemorrhage of a digestive system organ or structure following a digestive system procedure; E03.9 Hypothyroidism, unspecified; E66.9 Obesity, unspecified; Y83.9 Surgical procedure, unspecified as the cause of abnormal reaction of the patient, or of later complication, without mention of misadventure at the time of the procedure; F20.9 Schizophrenia, unspecified; F31.9 Bipolar disorder, unspecified; F41.9 Anxiety disorder, unspecified; I10 Essential (primary) hypertension; K58.9 Irritable bowel syndrome, unspecified; Z68.39 Body mass index [BMI] 39.0-39.9, adult; Z87.891 Personal history of nicotine dependence; Z90.710 Acquired absence of both cervix and uterus; Z79.899 Other long term (current) drug therapy; Z90.49 Acquired absence of other specified parts of digestive tract
CPT/HCPCS: 36415; 71045; 74176; 80048; 80053; 82803; 83735; 84484; 85007; 85025; 85610; 86850; 86900; 86901; 86920; 87641; 88304; 93005; A7015; G0238; J0330; J0690; J1100; J1200; J1885; J2001; J2370; J2405; J2704; J2710; J3010; J3490; J7030; J7120; P9016; P9045